=== PATIENT | female | born 1960 | race Caucasian/White ===

== ENCOUNTER 2024-06-06 15:31 | Emergency (ER) | payer OTHER, SELFPAY ==
[2024-06-06 15:36] VITALS: BP 126/66; PULSE 88; RESP 24; TEMP 36.7; O2SAT 95; BMI 35.2
--- NOTE | 2024-06-06 15:37 | ED_ITS ---
HPI - Dizziness General Chief Complaint: Dizziness Stated Complaint: ?Heat stroke Time Seen by Provider: 06/06/24 18:58 Source: patient Mode of arrival: ambulatory Limitations: no limitations History of Present Illness HPI Narrative: This is a 64-year-old woman with a reported past medical history of anxiety/depression, GERD, status post thyroidectomy on levothyroxine who presents for evaluation. 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 She states feeling lightheaded, nauseated with emesis, sweaty. She reports associated shoulder and leg cramps. She states no chest pain or dyspnea. She states she did not eat or drink anything and reports that she ?overdid it?. She reports feeling well at this time and states that her symptoms have completely resolved. She states no associated episode of syncope. She reports having gradual onset headache throughout the day. She states no vision changes. She states no neck pain. She states no hearing changes or speech changes. She states no difficulty swallowing. She states no extremity weakness or paresthesias. She states no recent febrile illness. She states no changes in bowel habits or any urinary symptoms. Related Data Allergies Allergy/AdvReac Type Severity Reaction Status Date / Time azithromycin [Azithromycin] Allergy Mild RASH Verified 06/06/24 15:39 [facility] Social History Social History Smoked in Last 30 Days: No Use of substances other than those prescribed or required for medical reasons: No Advance Directives: No Advance Directives Information Provided: Yes Physical Exam 2 Vital Signs: Vital Signs: Last Vital Signs Temp 97.9 F 06/06/24 17:02 Pulse 71 06/06/24 17:02 Resp 20 06/06/24 17:02 BP 133/71 06/06/24 17:02 Pulse Ox 93 06/06/24 17:02 O2 Del Method Room Air 06/06/24 17:02 BMI result Body Mass Index 35.2 Gen: NAD, AOx3 HEENT: NCAT, EOMI, normal conjunctiva CV: RRR Pulm: CTAB, no increased work of breathing GI: Soft, NTND, no rebound, guarding or rigidity Neuro: Cranial nerves 2-12 are intact, sensation intact to light touch in bilateral upper and lower extremity dermatomes, 5/5 bilateral upper and lower extremity strength, no dysmetria, no dysdiadochokinesia, Romberg negative, no nystagmus Course Course Course Narrative: This is a Rapid Medical Examination (RME) performed by Carly Ferguson PA-C in triage. Full HPI, ROS, assessment and treatment plan per primary provider in the Main ED. 64 year old female presents with concerns for heat stroke following setting up signs outside in the heat. Reports dizziness, has mild chest pain on inspiration, Drank water and immediately vomited, states that being in air conditioning helped a lot, however still experiencing symptoms. Top of shoulder hurts, hurts more with deep breaths. VSS in triage. She appears uncomfortable, hunched over holding her head. Plan: EKG, labs Medical Decision Making Medical Decision Making [facility] Narrative: Differential diagnosis includes, but is not limited to dehydration, acute kidney injury, electrolyte abnormality, presyncope, heat exhaustion. This is not heat stroke. Patient is afebrile and hemodynamically stable on room air. Exam is benign and reassuring. NIHSS 0. I reviewed and interpreted labs, which are noncontributory, including high sensitivity troponin effectively ruling out ACS. I reviewed and interpreted EKG, which is unremarkable for any acute findings. On re-examination, patient is well-appearing and in no acute distress. ?Patient states symptoms have resolved. ?She is independently ambulatory. I suspect symptoms are most likely attributed to heat exhaustion and/or component of presyncope and there is no indication for further emergent evaluation in this otherwise well-appearing patient as above. ?Patient is provided written and verbal instructions, educational materials, recommendations for outpatient follow-up, strict return precautions and teach back is performed. ?Patient states understanding and agreement with plan of care. ?Patient is discharged home in stable and improved condition. Admission/Observation Consideration of admission/observation: Escalation of care including admission/observation considered Lab Data [facility] Lab Attestation statement: I reviewed the patient's lab results. 06/06/24 16:20 06/06/24 16:20 Labs: Lab Results 06/06/24 06/06/24 Range/Units 16:20 17:43 WBC 12.1 H (4.8-10.8) X10*3/uL RBC 4.44 (4.20-5.50) X10*6/uL Hgb 13.1 (12.0-16.0) g/dl Hct 39.3 (37.0-47.0) % MCV 88.5 (80.0-98.0) fL MCH 29.5 (27.0-33.0) pg MCHC 33.3 (31.0-35.0) g/dl RDW 13.8 (11.0-16.0) % Plt Count 268 (160-400) X10*3/uL MPV 9.1 L (9.4-12.3) fL Immature Gran % (Auto) 0.3 (0.0-0.4) % Neut % (Auto) 78.9 H (45-73) % Lymph % (Auto) 12.3 L (20-40) % [place] % (Auto) 6.3 (2-11) % Eos % (Auto) 2.0 (0-4) % Baso % (Auto) 0.2 (0-2) % Lymph # (Auto) 1.5 (1.2-4.9) X10*3/uL [place] # (Auto) 0.8 (0.1-1.2) X10*3/uL Eos # (Auto) 0.2 (0.0-0.4) X10*3/uL Baso # (Auto) 0.0 (0.0-0.2) X10*3/uL Abs Immat Gran (auto) 0.04 H (0.00-0.03) X10*3/uL Absolute Neuts (auto) 9.6 H (2.0-8.3) x10*3/uL Absolute Nucleated RBC 0.000 (0.0-0.012) X10*3/uL Nucleated RBC % (auto) 0.0 (0.0-0.2) /100WBC Sodium 140 (135-145) mmol/L Potassium 3.8 (3.3-5.1) mmol/L Chloride 109 H (96-108) mmol/L Carbon Dioxide 22 (22-29) mmol/L Anion Gap 13 (12-20) BUN 13 (9-16) mg/dL Creatinine 0.85 (0.5-1.4) mg/dL Estim Creat Clear Calc 84.2 Estimated GFR > 60 Random Glucose 114 (60-115) mg/dL Calcium 9.6 (8.4-10.2) mg/dL Magnesium 2.1 (1.6-2.6) mg/dL Total Bilirubin 0.3 (0.0-1.0) mg/dL Direct Bilirubin 0.1 (0.0-0.5) mg/dL AST 19 (5-31) U/L ALT 21 (0-31) U/L Alkaline Phosphatase 73 (39-117) U/L Troponin I High Sens < 2.7 (<3.5-17.0) ng/L Total Protein 7.2 (6.5-8.0) g/dL Albumin 4.2 (3.5-5.0) g/dL Urine Color Yellow Urine Appearance Clear Urine pH 5.5 (5.0-9.0) Ur Specific [place] 1.020 (1.005-1.025) Urine Protein Negative (Neg-Trace) mg/dL Urine Glucose (UA) Negative (Negative) mg/dL Urine Ketones Negative (Negative) mg/dL Urine Blood Negative (Negative) Urine Nitrite Negative (Negative) Ur Leukocyte Esterase Negative (Negative) Independent Interpretation I performed an independent interpretation of an: EKG Interpretation: I independently reviewed and interpreted patient's EKG was demonstrates sinus rhythm at 87 beats per minute, LA 146, QRS 78, QTC 474, no ST/T-wave changes, no STEMI Discharge Plan Discharge Clinical Impression: Heat exhaustion Patient Disposition: Home, Self-Care Instructions: Heat Exhaustion (ED) Additional Instructions: You were seen and evaluated in the emergency room. Your vital signs were normal and he did not have fever. ? Your blood work was normal . Your chest x-ray was normal. Please follow-up with your primary care doctor in the next 5-7 days. ? Please return to the emergency room if you develop any worsening symptoms including, but not limited to chest pain or difficulty breathing. ? Print Language: Turkish
--- NOTE | 2024-06-06 15:37 | ECG_ITS ---
Test Reason : CP/DIZZY Blood Pressure : / mmHG Vent. Rate : 087 BPM Atrial Rate : 087 BPM P-R Int : 146 ms QRS Dur : 078 ms QT Int : 394 ms P-R-T Axes : 017 -49 026 degrees QTc Int : 474 ms Normal sinus rhythm Left axis deviation Anterolateral infarct , age undetermined Abnormal ECG When compared with ECG of 02-NOV-2015 17:30, Anterolateral infarct is now Present Nonspecific T wave abnormality has replaced inverted T waves in Anterior leads Referred By: Stephani Ferguson Electronically Signed By:Raul Colby
[2024-06-06 16:27] LABS: MANUAL DIFF FLAG NO
[2024-06-06 16:28] LABS: Basophils Percent Auto 0.2 % (0-2); Eosinophils Absolute Auto 0.2 X10*3/uL (0.0-0.4); Hematocrit 39.3 % (37.0-47.0); Hemoglobin 13.1 g/dl (12.0-16.0); Imm Gran Abs Auto 0.04 X10*3/uL (0.00-0.03); Imm Gran Pct Auto 0.3 % (0.0-0.4); Lymphocytes Absolute Auto 1.5 X10*3/uL (1.2-4.9); Lymphocytes Percent Auto 12.3 % (20-40); Mean Corpuscular HGB Conc 33.3 g/dl (31.0-35.0); Mean Corpuscular Hemoglobin 29.5 pg (27.0-33.0); Mean Corpuscular Volume 88.5 fL (80.0-98.0); Mean Platelet Volume 9.1 fL (9.4-12.3); Monocytes Absolute Auto 0.8 X10*3/uL (0.1-1.2); Monocytes Percent Auto 6.3 % (2-11); Neutrophils Absolute Auto 9.6 x10*3/uL (2.0-8.3); Neutrophils Percent Auto 78.9 % (45-73); Platelet Count 268 X10*3/uL (160-400); Red Blood Count 4.44 X10*6/uL (4.20-5.50); Red Cell Distribution Width 13.8 % (11.0-16.0); White Blood Count 12.1 X10*3/uL (4.8-10.8)
[2024-06-06 16:42] LABS: Alanine Aminotransferase 21 U/L (0-31); Albumin Level 4.2 g/dL (3.5-5.0); Alkaline Phosphatase 73 U/L (39-117); Anion Gap 13 (12-20); Aspartate Amino Transferase 19 U/L (5-31); Bilirubin Direct 0.1 mg/dL (0.0-0.5); Bilirubin Total 0.3 mg/dL (0.0-1.0); Blood Urea Nitrogen 13 mg/dL (9-16); Calcium 9.6 mg/dL (8.4-10.2); Carbon Dioxide 22 mmol/L (22-29); Chloride 109 mmol/L (96-108); Creatinine Clr Calc Pharmacy 84.2; Estimated Glomerular Filt Rate > 60; Glucose Random 114 mg/dL (60-115); Magnesium 2.1 mg/dL (1.6-2.6); Potassium 3.8 mmol/L (3.3-5.1); Sodium 140 mmol/L (135-145); Total Protein 7.2 g/dL (6.5-8.0)
[2024-06-06 16:51] LABS: Troponin-I High Sensitivity < 2.7 ng/L (<3.5-17.0)
--- NOTE | 2024-06-06 17:01 | PC.NURSE ---
Pt. is in ED bed 19.
--- NOTE | 2024-06-06 17:01 | PC.NURSE ---
tunnel elastic operator zigzag applied at this time.
[2024-06-06 17:02] VITALS: BP 133/71; PULSE 71; RESP 20; TEMP 36.6; O2SAT 93
--- NOTE | 2024-06-06 17:09 | PC.NURSE ---
Pt.'s swallow screen completed and passed.
--- OUTSIDE RECORDS SUMMARY | 2024-06-06 17:29 | XMS_ITS | Continuity of Care Document ---
Author Organization [facility] Address [address] [place] [address] [address] [place] [address]- Care Team Providers Care Railway Track Plant Operator Name Role Phone Joe KAUFMAN, Nadira M Primary Care Physician Encounter [facility] [place] Date(s): 09/29/23 - 10/06/[address] [place], [place] [address] Attending Physician: Sonny Castelan MD Referring Physician: Chasidy Soto MD Allergies, Adverse Reactions, Alerts Substance Reaction Severity Status azithromycin Itching Urticaria Active Medications Albuterol 0 Refills, Maintenance Start Date: 04/13/11 Status: Ordered B-12 0 Refills, Maintenance, 07/02/23 8:46:00 EDT, Partial fill upon patient request if the prescriptionis for a schedule II opioid drug. Start Date: 07/02/23 Status: Ordered duloxetine 30 mg oral enteric coated capsule 1 capsule = 30 mg, By Mouth, Daily, # 30 capsule, 0 Refills, Maintenance, 07/02/23 8:48:00 EDT, Partial fill upon patient request if the prescription is for a schedule II opioid drug. Start Date: 07/02/23 Status: Ordered Folic Acid Daily, 0 Refills, Maintenance, 07/02/23 8:44:00 EDT, Partial fill upon patient request if the prescription is for a schedule II opioid drug. Start Date: 07/02/23 Status: Ordered iron sulfate By Mouth, 0 Refills, Maintenance, 07/02/23 8:46:00 EDT, Partial fill upon patient request if the prescription is for a schedule II opioid drug. Start Date: 07/02/23 Status: Ordered montelukast 10 mg oral tablet 10 mg, 1, tablet, By Mouth, Daily, Refills 0, Maintenance, 07/02/23 8:47:00 EDT, Partial fill upon patient request if the prescription is for a schedule II opioid drug. Start Date: 07/02/23 Status: Ordered pravastatin 20 mg oral tablet 20 mg, 1, tablet, By Mouth, Daily, # 30 tablet, Refills 0, Maintenance, 07/02/23 8:43:00 EDT, Partial fill upon patient request if the prescription is for a schedule II opioid drug. Start Date: 07/02/23 Status: Ordered Protonix 40 mg oral enteric coated tablet 1 tablet = 40 mg, By Mouth, Daily, 0 Refills, Maintenance Start Date: 04/13/11 Status: Ordered Prozac 20 mg oral capsule 1 capsule = 20 mg, By Mouth, Daily, 0 Refills, Maintenance Start Date: 04/13/11 Status: Ordered QUEtiapine 50 mg oral tablet 1 tablet = 50 mg, By Mouth, Daily, # 30 tablet, 0 Refills, Maintenance, 07/02/23 8:43:00 EDT, Tablet, Partial fill upon patient request if the prescription is for a schedule II opioid drug. Start Date: 07/02/23 Status: Ordered tolterodine 4 mg oral capsule, extended release 1 capsule = 4 mg, By Mouth, Daily, # 30 capsule, 0 Refills, Maintenance, 07/02/23 8:47:00 EDT, CR Capsule, Partial fill upon patient request if the prescription is for a schedule II opioid drug. Start Date: 07/02/23 Status: Ordered Vitamin C By Mouth, Daily, 0 Refills, Maintenance, 07/02/23 8:46:00 EDT, Partial fill upon patient request ifthe prescription is for a schedule II opioid drug. 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 Confirmed Active GERD Confirmed Active History of postoperative nausea and vomiting Confirmed Active Hyperlipidemia Confirmed Active Hyperlipidemia 3 Confirmed 07/03/22 Active Impaired fasting glucose Confirmed Active Impaired fasting glycemia 4 Confirmed 07/03/22 Active Mild intermittent asthma 5 Confirmed 03/26/22 Active Morbid obesity Confirmed 01/25/23 Active Cervical pain (neck) - hx ACDF Confirmed Active Obstructive sleep apnea syndrome 6 Confirmed 03/26/22 Active Osteoarthritis of right knee Confirmed Active Severe obesity (BMI 35.0-39.9) with comorbidity Confirmed Active Thyroid nodule 7 Confirmed 03/26/22 Active 1Outside Source Comment: Last Assessment & Plan: Her last PCP did recommend half-way follow up through a therapist and prescriberand I think this is appropriate. Given a list of local providers. She has adequate refills available at this time. 2Outside Source Comment: Last Assessment & Plan: Currently resolved 3Outside Source Comment: Last Assessment & Plan: She tolerates statin well. Update fasting labs in the fall. 4Outside Source Comment: Last Assessment & Plan: Last fasting glucose 100. Check A1c with next labs. 5Outside Source Comment: Last Assessment & Plan: stable 6Outside Source Comment: Last Assessment & Plan: We'll refer you to Dr. Hsu for further eval and treatment of this 7Outside Source Comment: Last Assessment & Plan: Referral sent to Dr. Canseco to be back dated to recent visit in June. She will proceed to left thyroid lobectomy and follow up with Dr. Mondragon afterwards for monitoring TSH. Vital Signs Most recent to oldest [Reference Range]: 1 Height 167.64 cm (09/29/23 11:05 AM) Weight 102.7 kg (09/29/23 11:05 AM) Pulse Rate [55-90 bpm] 72 bpm (09/29/23 11:05 AM) Body Mass Index [18.5-24.99 kg/m2] 36.54 kg/m2 *>HHI* (09/29/23 11:05 AM) Blood Pressure [90-138/55-84 mm Hg] 128/ 85mm Hg (09/29/23 11:05 AM) Temperature [96.8-100.4 DegF] 96.5 DegF *L* (09/29/23 11:05 AM) Blood pressure sites Arm, left (09/29/23 11:05 AM) Temperature Route Temporal (09/29/23 11:05 AM) Social History Social History Type Response Smoking Status Never (less than 100 in lifetime) entered on: 08/18/23 Sex Patient Care team information Care Team Personnel Name: Joe KAUFMAN , Nadira Lira Position: S Outreach Member Role: PCP Address: Address: [address] [place] [address]- Care Team Related Persons Name: SONNY MOLINA Address: home [address] [place] [id number]
--- OUTSIDE RECORDS SUMMARY | 2024-06-06 17:29 | XMS_ITS | Continuity of Care Document ---
Author Organization [facility] Address [address] [place] [id number]- Care Team Providers Care Wireless Technician Name Role Phone Joe KAUFMAN, Nadira M Primary Care Physician Encounter [facility] [place] Date(s): 08/18/23 - 09/17/23 [facility] [address] [place], [place] [address] Attending Physician: Shay Perkins Admitting Physician: AdmtrShay Referring Physician: AdmtrShay Allergies, Adverse Reactions, Alerts Substance Reaction Severity Status azithromycin Itching Urticaria Active Medications acetaminophen 325 mg oral tablet 650 mg, 2, tablet, By Mouth, Every 4 hours, PRN, for 5 days, # 60 tablet, Refills 0, Tot. Refills 0, Acute 09/19/23 10:58:00 EST, as needed for pain, 09/14/23 10:58:00 EST, Route to Pharmacy Electronically, [facility], Partial fill upon p... Start Date: 09/14/23 Stop Date: 09/19/23 Status: Ordered Albuterol 0 Refills, Maintenance Start Date: 04/13/11 [...] & Plan: Her last PCP did recommend senior living follow up through a therapist and prescriberand [...] with Dr. Mondragon afterwards for monitoring TSH. Social History Social History Type Response Smoking Status Never (less than 100 in lifetime) entered on: 08/18/23 Sex Patient Care team information Care Team Personnel Name: Joe KAUFMAN , Nadira Lira Position: S Outreach Member Role: PCP Address: Address: [address] [place] [id number]- Care Team Related Persons Name: SONNY MOLINA Address: home [address] [place] [address]
--- OUTSIDE RECORDS SUMMARY | 2024-06-06 17:29 | XMS_ITS | Continuity of Care Document ---
Author Organization [facility] Address [address] [place] [address] [address] [place] [address]- Care Team Providers Care Advertising Sales Consultant Name Role Phone Chasidy Soto MD Primary Care Physician [phone] Encounter [facility] [place] Date(s): 07/02/23 - 08/01/[address] [place], [place] [address] Attending Physician: Shay Prekins Admitting Physician: AdmtrShay Referring Physician: Admtr, Ar8 Allergies, Adverse Reactions, Alerts No Known Allergies Medications Albuterol 0 Refills, Maintenance Start Date: 04/13/11 Status: Ordered B-12 0 Refills, Maintenance, 07/02/23 8:46:00 EDT, Partial fill upon patient request if the prescriptionis for a schedule II opioid drug. Start Date: 07/02/23 Status: Ordered Benadryl 25 mg oral tablet 25 mg, 1, tablet, By Mouth, 2 times a day, PRN as needed for itching, # 30 tablet, 0 Refills, Maintenance Start Date: 07/02/23 Status: Ordered duloxetine 30 mg oral enteric coated capsule 1 capsule = 30 mg, By Mouth, Daily, # 30 capsule, 0 Refills, Maintenance, 07/02/23 8:48:00 EDT, Partial fill upon patient request if the prescription is for a schedule II opioid drug. Start Date: 07/02/23 Status: Ordered Effexor 100 mg oral tablet 1 tablet = 100 mg, By Mouth, 2 times a day, 0 Refills, Maintenance Start Date: 04/13/11 Status: Ordered Folic Acid Daily, 0 Refills, [...] opioid drug. 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
--- OUTSIDE RECORDS SUMMARY | 2024-06-06 17:29 | XMS_ITS | Continuity of Care Document ---
Author Organization [facility] Address [address] [place] [address] [address] [place] [address]- Care Team Providers Care Bonding Machine Tender Name Role Phone Joe KAUFMAN, Nadira Lira Primary Care Physician Encounter [facility] R [id number] Date(s): 09/29/23 - 10/29/[address] [place] [address]- Attending Physician: Shay Perkins Admitting Physician: AdmtrShay Referring Physician: Admtr ArDionicio Allergies, Adverse Reactions, Alerts Substance Reaction Severity [...] & Plan: Her last PCP did recommend long term care administrator follow up through a therapist and prescriberand [...] Care team information Care Team Personnel Name: Nadira Diaz NP Position: S Outreach Member Role: PCP Address: Address: [address] [place] [address]- Care Team Related Persons Name: SONNY MOLINA Address: home [address] [place] [address]
--- OUTSIDE RECORDS SUMMARY | 2024-06-06 17:30 | XMS_ITS | Continuity of Care Document ---
Author Organization [facility] Address [address] [place] [address] [address] [place] [address]- Care Team Providers Care Order To Delivery Supervisor Name Role Phone Chasidy Soto MD Primary Care Physician Encounter [facility] [place] Date(s): 07/02/23 - 07/09/[address] [place] [address]- Attending Physician: Devaughn Canseco MD Referring Physician: Chasidy Soto MD Allergies, Adverse Reactions, Alerts No Known Allergies [...] Confirmed Active Obese class II Confirmed Active Vital Signs Most recent to oldest [Reference Range]: 1 Height 169 cm (07/02/23 8:28 AM) Weight 102.7 kg (07/02/23 8:28 AM) Pulse Rate [55-90 bpm] 76 bpm (07/02/23 8:28 AM) Body Mass Index [18.5-24.99 kg/m2] 35.96 kg/m2 *>HHI* (07/02/23 8:28 AM) Blood Pressure [90-138/55-84 mm Hg] 124/ 82mm Hg (07/02/23 8:28 AM) Respiratory Rate [16-30 br/min] 20 br/mi n (07/02/23 8:28 AM) Temperature [96.8-100.4 DegF] 97.1 DegF (07/02/23 8:28 AM) Blood pressure sites Arm, left (07/02/23 8:28 AM) Temperature Route Femoral (07/02/23 8:28 AM) Weight Obtained Via Standing scale (07/02/23 8:28 AM) Patient Care team information Care Team Personnel Name: Chasidy Soto MD Position: [facility] Physician (General Medicine) Member Role: PCP Address: Address: [address] [place] [address]- Care Team Related Persons Name: SONNY MOLINA Address: home [address] [place] [address]
--- OUTSIDE RECORDS SUMMARY | 2024-06-06 17:30 | XMS_ITS | Continuity of Care Document ---
Author Organization [facility] Address [address] [place] [address]- Care Team Providers Care Customer Experience Intern Name Role Phone Charles HURT, Chasidy Aggarwal Primary Care Physician Encounter [facility] [place] ACCT R [id number] Date(s): 08/18/23 - 08/25/23 [facility] [address] [place] 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 Mondragon afterwards for monitoring TSH. Procedures Procedure Date Related Diagnosis Body Site Status Appendectomy Completed Bilateral tubal ligation Completed Biopsy of thyroid Complet ed Cholecystectomy Completed Colonoscopy Completed Endoscopy Completed Hernia Repair 03/2023 Comp leted Hysterectomy Completed Right knee ACL Completed Surgical procedure on cervic al spine with hardware Completed Tonsillectomy Completed Vital Signs Most recent to oldest [Reference Range]: 1 Height 168 cm (08/18/23 1:36 PM) Weight 102.7 kg (08/18/23 1:36 PM) Oxygen Saturation [94-100 %] 98 % (08/18/23 1:36 PM) Pulse Rate [55-90 bpm] 75 bpm (08/18/23 1:36 PM) Body Mass Index [18.5-24.99 kg/m2] 36.39 kg/m2 *>HHI* (08/18/23 1:36 PM) Blood Pressure [90-138/55-84 mm Hg] 115/ 72mm Hg (08/18/23 1:36 PM) Respiratory Rate [16-30 br/min] 18 br/mi n (08/18/23 1:36 PM) Mode of Delivery (Oxygen) Room air (08/18/23 1:36 PM) Blood pressure sites Arm, right (08/18/23 1:36 PM) Weight Obtained Via Standing scale (08/18/23 1:36 PM) Social History Social History Type Response Smoking Status Never (less than 100 in lifetime) entered on: 08/18/23 Sex Patient Care team information Care Team Personnel Name: Chasidy Soto MD Position: [facility] Physician (General Medicine) Member Role: PCP Address: Address: [address] [place] [address]- Care Team Related Persons Name: SONNY MOLINA Address: home [address] [place] [address]
--- OUTSIDE RECORDS SUMMARY | 2024-06-06 17:30 | XMS_ITS | Continuity of Care Document ---
Author Organization [facility] Address [address] [place] [id number]- Care Team Providers [employer] Name Role Phone Joe KAUFMAN, Nadira M Primary Care Physician Encounter [facility] [place] Date(s): 09/14/23 - 09/14/[address] [address] Discharge Disposition: A-D/C Home Attending Physician: Devaughn Canseco MD Admitting Physician: Devaughn Canseco MD Referring Physician: Devaughn Canseco MD Allergies, [...] opioid drug. Start Date: 07/02/23 Status: Ordered oxyCODONE 5 mg oral tablet 5 mg, 1, tablet, By Mouth, Every 4 hours, PRN, for 2 days, # 8 tablet, Refills 0, Tot. Refills 0, Acute 09/16/23 10:58:00 EST, for pain, 09/14/23 10:58:00 EST, Route to Pharmacy Electronically, [facility], Partial fill upon patient reques... Start Date: 09/14/23 Stop Date: 09/16/23 Status: Ordered Oxycodone 5mg Oral Tablet (PACU ONLY) 5 mg, Tablet, By Mouth, Once, in PACU ONLY, PRN for Pain , Moderate, Routine, 09/14/23 11:08:00 EST Start Date: 09/14/23 Stop Date: 09/14/23 Status: Completed pravastatin 20 mg oral tablet 20 mg, [...] & Plan: Her last PCP did recommend plate mill mill hand follow up through a therapist and prescriberand [...] Procedure Date Related Diagnosis Body Site Status Total thyroid lobectomy, uni lateral; with or without isthmusectomy 09/14/23 Co mpleted Vital Signs Most recent to oldest [Reference Range]: 1 2 3 Height 167.64 cm (09/14/23 9:28 AM) 167.64 cm (09/13/23 9:02 AM) Weight 101.0 kg (09/14/23 9:28 AM) 102.27 kg (09/13/23 9:02 AM) Oxygen Saturation [94-100 %] 92 % *L* (09/14/23 1:30 PM) 92 % *L* (09/14/23 1:15 PM) 92 % *L* (09/14/23 1:00 PM) Pulse Rate [55-90 bpm] 67 bpm (09/14/23 9:28 AM) Body Mass Index [18.5-24.99 kg/m2] 35.94 kg/m2 *>HHI* (09/14/23 9:28 AM) 36.39 kg/m2 *>HHI* (09/13/23 9:02 AM) Blood Pressure [90-138/55-84 mm Hg] 128/76mm Hg (09/14/23 1:00 PM) 131/77mm Hg (09/14/23 12:45 PM) 119/73mm Hg (09/14/23 12:30 PM) Respiratory Rate [16-30 br/min] 23 br/min (09/14/23 1:30 PM) 18 br/min (09/14/23 1:29 PM) 19 br/min (09/14/23 1:00 PM) Temperature [96.8-100.4 DegF] 97.2 DegF (09/14/23 12:15 PM) 97.7 DegF (09/14/23 11:15 AM) 97.8 DegF (09/14/23 9:28 AM) Liters per Minute 2 L/min (09/14/23 1:00 PM) 2 L/min (09/14/23 12:45 PM) 5 L/min (09/14/23 12:30 PM) Mode of Delivery (Oxygen) Room air (09/14/23 1:30 PM) Room air (09/14/23 1:15 PM) Nasal cannula (09/14/23 1:00 PM) Blood pressure sites Arm, right (09/14/23 12:15 PM) Arm, right (09/14/23 12:00 PM) Arm, right (09/14/23 11:45 AM) Temperature Route Temporal (09/14/23 12:15 PM) Temporal (09/14/23 11:15 AM) Temporal (09/14/23 9:28 AM) Dry Weight 101.0 kg (09/14/23 9:28 AM) 102.27 kg (09/13/23 9:02 AM) Weight Obtained Via Standing scale (09/14/23 9:28 AM) Patient/family stated (09/13/23 9:02 AM) Dry Weight Obtained Via Standing scale (09/14/23 9:28 AM) Patient/family stated (09/13/23 9:02 AM) Social History Social History Type Response Smoking Status Never (less than 100 in lifetime) entered on: 08/18/23 Sex Note * Joy Rivera RN: PERFORM Event Display: Discharge/Transfer Note Hospital Authored Date: [id number] Nursing Discharge Note Entered On: 09/14/2023 14:10 EST Performed On: 09/14/2023 14:09 EST by Joy Rivera RN Nursing Discharge Note 2 Discharge Time : 09/14/2023 14:09 EST Discharge Level of Care at Discharge : Home/Jail/Foster Care Patient Left Unit Via : Wheelchair Patient Accompanied Off Unit with : Responsible adult DC Instructions Provided & Signed by Pt : Yes Patient Understands D/C Instructions : Yes Verbalized Understanding of D/C Plan By : Family, Patient Patient Instructions Discharge Signed : Yes Did Pt have Specialty Bed or Wound Vac : No Joy Rivera RN - 09/14/2023 14:09 EST * Tabby Schroeder RN: PERFORM Event Display: Patient Education/Instruction Authored Date: [id number] Inpatient Adult Discharge Instructions [address] [address] Name: BERTHA OSORIO : 1960 Visit: 09/14/2023 08:19:00 Current Date: 09/14/2023 12:36 Account: [id number] Inpatient Adult Discharge Instructions We would like to thank you for allowing us to assist you with your healthcare needs. The following includes patient education materials and information regarding your injury/illness. Our entire staffstrives to provide an excellent experience for our patients and their families. PLEASE ENSURE YOU FOLLOW-UP PER THE INSTRUCTIONS BELOW! ?? YOUR OPINION IS IMPORTANT TO US! Please complete the survey you may receive by mail or email. Your feedback will be used to make improvements to the healthcare experiences of our patients and their families. Surveys are administered by [employer] ?? If further treatment with your primary care physician or another doctor is recommended, it is important for you to keep the appointment. Call your primary care physician or return to the Emergency Department immediately if your condition worsens, fails to improve, or new symptoms develop. If you need to find a doctor, you can call [facility] Link for a referral at [phone] or toll free at [phone]) or log in to [email or web address].. ?? [facility], in keeping with [facility] guidance, no longer requires face masks for staff, patientsor visitors in most situations. Similiar to time spent indoors at other locations, there is the chance that you were exposed to repiratory viruses during your time with us (such as flu or COVID-19). If you develop symptoms concerning for a viral respiratory infection, please seek testing (and treatment if indicated) from your medical provider or home test kit. ?? You can view and manage your care through the patient portal or by using a health care gayathri of your choosing. [employer] is a website that allows you to securely view your medical information including your hospital discharge summary, office visit summaries, medications and follow-up visits. You can also request appointments, renew medications, and request access to your medical information using a health care gayathri of your choosing, or just ask a question. You can enroll at [email or web address] or register during your next office visit. You have been discharged from [facility], Patient Care Unit: [facility]. If you have any questions regarding these instructions after you leave, please call us and we will be happy to assist you. [facility] Your Care Team Attending Physician Devaughn Canseco MD Discharging Providers Yonny Gan DO Reason for Admission LEFT THYROID NODULEDS CS Tests Performed Below is a partial list of the tests performed during your hospitalization. You may have had other tests and procedures not included in this list. Please discuss all test results with your provider. Primary Care Provider Nadira Diaz NP Advance Directive Health Care Proxy on File No Discharge Vitals Temperature: 97.2 DegF Height: 167.64 cm Pulse Rate: 67 bpm Weight: 101 kg Respiratory Rate: 20 br/min Body Mass Index:??35.94 kg/m2??Critical Systolic Blood Pressure: 126 mm Hg Body surface area: 2.17 Diastolic Blood Pressure: 74 mm Hg ?? Oxygen Saturation:??92 %??Low ?? Studies Pending All tests and labs ordered during this hospital stay have been completed unless listed below. Please discuss all pending results with your provider listed above in these instructions. ?? No incomplete studies found What to do next Instructions From Your Doctor Discharge Orders Instructions from your Care Team Please see attached MD discharge instructions. Call to make a follow up in 2-[address] weeks[address] while taking pain meds. Can shower in 24hrs. Leave steri-strips in place. Scheduled Follow-Up Appointments Wednesday 11:20 AM EST ?? With: Cordell Zamora Where: [facility] General Surgery [address] [place] [address]- Status: Pending You Need to Schedule the Following Appointments Follow Up with??Devaughn Canseco Where: [address], [address] [place] [address]- Business (1) Follow Up with??Nadira Diaz NP When:??In 0 days Discharge Medications BERTHA OSORIO :1960 Visit Date:09/14/2023 Medications: Please continue your medications until treatment is completed or stopped by your provider. Medications not listed below should be discontinued. Discuss any questions related to medications with your provider. What How Much When Instructions Next Dose New Acetaminophen (acetaminophen 325 mg oral tablet) 2 tab(s) Oral Every 4 hours as needed for as needed for pain Duration: 5 Days Pickup at [facility] New Oxycodone (oxyCODONE 5 mg oral tablet) 1 tab(s) Oral Every 4 hours as needed for for pain Duration: 2 Days Pickup at [facility] Unchanged Albuterol Unchanged Ascorbic Acid (Vitamin C) Oral Daily Unchanged Cyanocobalamin (B-12) Unchanged Duloxetine (duloxetine 30 mg oral enteric coated capsule) 1 capsule Oral Daily Unchanged Ferrous Sulfate (iron sulfate) Oral Unchanged Fluoxetine (Prozac 20 mg oral capsule) 1 capsule Oral Daily Unchanged Folic Acid Daily Unchanged Montelukast (montelukast 10 mg oral tablet) 1 tab(s) Oral Daily Unchanged Pantoprazole (Protonix 40 mg oral enteric coated tablet) 1 tab(s) Oral Daily Unchanged Pravastatin (pravastatin 20 mg oral tablet) 1 tab(s) Oral Daily Unchanged Quetiapine (QUEtiapine 50 mg oral tablet) 1 tab(s) Oral Daily Unchanged Tolterodine (tolterodine 4 mg oral capsule, extended release) 1 capsule Oral Daily Pharmacy Information [facility]: [address], [place] [id number] [phone] Test Results Below is a partial list of the most recent Laboratory test results done prior to this discharge. You may have had other tests and procedures not included in this list. Please discuss all test resultswith your provider. Allergies (NKA means No Known Allergies) azithromycin??(Itching, Urticaria) Problems Active Problems??(18) Adjustment disorder with mixed anxiety and depressed mood?? Anemia?? Anemia?? Asthma, (rare use of inhaler)?? Cervical pain (neck) - hx ACDF?? 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 GERD?? History of postoperative nausea and vomiting?? Hyperlipidemia?? Hyperlipidemia?? Impaired fasting glucose?? Impaired fasting glycemia?? Mild intermittent asthma?? Morbid obesity?? Obstructive sleep apnea syndrome?? Osteoarthritis of right knee?? Severe obesity (BMI 35.0-39.9) with comorbidity?? Thyroid nodule?? Education Materials Below is the list of Educational Leaflet Providered with your Discharge Instructions. Valuables and Belongings I fully understand and agree that [facility] accepts no responsibility for all my personal property including clothing, toilet articles, radios, jewelry, dentures, hearing aids, rings, money, or any other property that is in my possession or is brought to me after admission. I understand certain valuables may be placed in a hospital safe for a short period of time. I understand that the hospital is not liable for loss or damage due to accident, fire, or other natural occurrence while said property is in the safe. I accept full responsibility for any personal property that I keep with me, and will not hold the hospital responsible in case of loss or disappearance. I acknowledge that i have been encouraged to send valuables and belongings home. ?? Review of Valuable and Belonging List: With patient Date for Pt to Sign Valuables/Belongings: 09/14/23 09:28:00 ?? Valuables & Belongings ?? Clothes Electronic devices Jewelry Monetary Items Personal devices Miscellaneous Medications (Valuables) Valuables at Bedside Pants, Shirt, Shoes, Undergarments Cell phone ? Glasses ? Valuables Sent Home ? Valuables Sent to Security ? Other Discharge Information ? Pulmonary Rehab Status?? Pulmonary Rehab Discharge Status?? Respiratory Rate: 20 br/min ? Common Emergency Awareness Tips IS IT A STROKE? Act FAST and Check for these signs: FACE Does the face look uneven? ARM Does one arm drift down? SPEECH Does their speech sound strange? TIME Call at any sign of stroke ?? Heart Attack Signs Chest discomfort: Most heart attacks involve discomfort in the center of the chest and lasts more than a few minutes, or goes away and comes back. It can feel like uncomfortable pressure, squeezing, fullness or pain. Discomfort in upper body: Symptoms can include pain or discomfort in one or both arms, back, neck, jaw or stomach. Shortness of breath: With or without discomfort. Other signs: Breaking out in a cold sweat, nausea, or lightheaded. Remember, MINUTES DO MATTER. If you experience any of these heart attack warning signs, call to get immediate medical attention! ?? Smoking can increase your chances of developing chronic health problems and can cause harmful effects to other family members in your house. If you smoke, you are strongly encouraged to quit. Please call [facility] Link at [phone] or [phone]) or log in to [email or web address] for referrals to smoking cessation programs. ?? 758 Suicide & Crisis Lifeline is available 31/05 if you or someone you know needs to find a reason to keep living. By calling 978 you'll be connected to a skilled, trained counselor at a crisis center in your area. INPATIENT DISCHARGE INSTRUCTIONS SIGNATURE PAGE BERTHA OSORIO Location:[facility] Registration Date and Time:09/14/2023 08:19 EST Primary Care Physician: Nadira Diaz NP, Attending Physician: Ajith HURT, Devaughn, I BERTHA OSORIO, have received the above patient education materials/instructions and have verbalized understanding. If ambulance or transport services are being used I further acknowledge being given achoice of service. ?? If you need to contact me, please call me at this number: . Patient/Sewage Plant Attendant Name: Patient/Sewage Plant Attendant Signature: Relationship to Patient: Witness Name/Signature: Date: * Tabby Schroeder RN: PERFORM, SIGN, VERIFY Event Display: Patient Education Handout Authored Date: [id number] * Tabby Schroeder RN: PERFORM Event Display: Patient Education Leaflets Authored Date: [id number] Surgery Medical Daystay Surgical Overnight Discharge Instructions ?? 295 Medical Daystay/Surgical Overnight Discharge Instructions ? Since your coordination and judgment may be altered by medication and/or anesthesia, a responsible adult must drive you home from the hospital. ? If you have received medication for pain or sedation while under our care, you should not drive, operate machinery, drink alcohol, or sign any legal documents for 24 hours.?? You should have someone with you at home tonight. ? Remain at home the day of discharge.?? You may be up and about unless otherwise instructed by your physician. ? You may resume your daily prescription medication schedule.?? Any depressant medication should be avoided for 24 hours unless otherwise instructed by your surgeon or anesthesiologist. ? Call your physician for a follow-up appointment.? If you experience unusual or severe pain not relied by your pain medication, excessive bleedingor drainage, persistent nausea and vomiting, excessive swelling or redness, foul odor from incisionsite or fever over 100.6F, you need to call your physician. ? A follow-up phone call by a nurse will be made the day after your procedure.?? If you have stayed with us over night, you will not be receiving a follow-up phone call. ? Nausea and vomiting are a common side effect of prescription pain medication.?? We recommend that pills are not taken on an empty stomach.?? While taking any prescription pain medication you should not drive or drink alcohol. ? Patient Care team information Care Team Personnel Name: Nadira Diaz NP Position: S Outreach Member Role: PCP Address: Address: [address] [place] [address]- Care Team Related Persons Name: SONNY MOLINA Address: home [address] [place] [address]
[2024-06-06 17:51] LABS: Appearance Urine Clear; Color Urine Yellow; Glucose Urine UA Negative (Negative); Leukocyte Esterase Urine Negative (Negative); Nitrite Urine Negative (Negative); PH 5.5 (5.0-9.0); Urine Blood Negative (Negative); Urine Ketones Negative (Negative); Urine Protein Negative (Neg-Trace)
--- NOTE | 2024-06-06 19:38 | ED_ITS ---
HPI - General Adult General Chief complaint: Dizziness Stated complaint: ?Heat stroke Time Seen by Provider: 06/06/24 18:58 Related Data Allergies Allergy/AdvReac Type Severity Reaction Status Date / Time azithromycin [Azithromycin] Allergy Mild RASH Verified 06/06/24 15:39 [facility] Social History Social History Smoked in Last 30 Days: No Use of substances other than those prescribed or required for medical reasons: No Advance Directives: No Advance Directives Information Provided: Yes Physical Exam ED Vital Signs: Vital Signs - 24 hr 06/06/24 15:36 06/06/24 17:02 Temperature 98.0 F 97.9 F Pulse Rate 88 71 Respiratory Rate 24 H 20 Blood Pressure 126/66 133/71 Pulse Oximetry 95 93 Oxygen Delivery Method Room Air Room Air BMI result Body Mass Index 35.2 Medical Decision Making Lab Data 06/06/24 16:20 06/06/24 16:20 Labs: Lab Results 06/06/24 06/06/24 Range/Units 16:20 17:43 WBC 12.1 H (4.8-10.8) X10*3/uL RBC 4.44 (4.20-5.50) X10*6/uL Hgb 13.1 (12.0-16.0) g/dl Hct 39.3 (37.0-47.0) % MCV 88.5 (80.0-98.0) fL MCH 29.5 (27.0-33.0) pg MCHC 33.3 (31.0-35.0) g/dl RDW 13.8 (11.0-16.0) % Plt Count 268 (160-400) X10*3/uL MPV 9.1 L (9.4-12.3) fL Immature Gran % (Auto) 0.3 (0.0-0.4) % Neut % (Auto) 78.9 H (45-73) % Lymph % (Auto) 12.3 L (20-40) % Lassen % (Auto) 6.3 (2-11) % Eos % (Auto) 2.0 (0-4) % Baso % (Auto) 0.2 (0-2) % Lymph # (Auto) 1.5 (1.2-4.9) X10*3/uL Lassen # (Auto) 0.8 (0.1-1.2) X10*3/uL Eos # (Auto) 0.2 (0.0-0.4) X10*3/uL Baso # (Auto) 0.0 (0.0-0.2) X10*3/uL Abs Immat Gran (auto) 0.04 H (0.00-0.03) X10*3/uL Absolute Neuts (auto) 9.6 H (2.0-8.3) x10*3/uL Absolute Nucleated RBC 0.000 (0.0-0.012) X10*3/uL Nucleated RBC % (auto) 0.0 (0.0-0.2) /100WBC Sodium 140 (135-145) mmol/L Potassium 3.8 (3.3-5.1) mmol/L Chloride 109 H (96-108) mmol/L Carbon Dioxide 22 (22-29) mmol/L Anion Gap 13 (12-20) BUN 13 (9-16) mg/dL Creatinine 0.85 (0.5-1.4) mg/dL Estim Creat Clear Calc 84.2 Estimated GFR > 60 Random Glucose 114 (60-115) mg/dL Calcium 9.6 (8.4-10.2) mg/dL Magnesium 2.1 (1.6-2.6) mg/dL Total Bilirubin 0.3 (0.0-1.0) mg/dL Direct Bilirubin 0.1 (0.0-0.5) mg/dL AST 19 (5-31) U/L ALT 21 (0-31) U/L Alkaline Phosphatase 73 (39-117) U/L Troponin I High Sens < 2.7 (<3.5-17.0) ng/L Total Protein 7.2 (6.5-8.0) g/dL Albumin 4.2 (3.5-5.0) g/dL Urine Color Yellow Urine Appearance Clear Urine pH 5.5 (5.0-9.0) Ur Specific [place] 1.020 (1.005-1.025) Urine Protein Negative (Neg-Trace) mg/dL Urine Glucose (UA) Negative (Negative) mg/dL Urine Ketones Negative (Negative) mg/dL Urine Blood Negative (Negative) Urine Nitrite Negative (Negative) Ur Leukocyte Esterase Negative (Negative) Independent Interpretation I performed an independent interpretation of an: EKG Discharge Plan Discharge Clinical Impression: Heat exhaustion Patient Disposition: Home, Self-Care Instructions: Heat Exhaustion (ED) Additional Instructions: You were seen and evaluated in the emergency room. Your vital signs were normal and he did not have fever. ? Your blood work was normal . Your chest x-ray was normal. Please follow-up with your primary care doctor in the next 5-7 days. ? Please return to the emergency room if you develop any worsening symptoms including, but not limited to chest pain or difficulty breathing. ? Print Language: Ukrainian
--- NOTE | 2024-06-06 19:40 | ED.GENADULT ---
HPI - General Adult General Chief complaint: Dizziness Stated complaint: ?Heat stroke Time Seen by Provider: 06/06/24 18:58 Related Data Allergies Allergy/AdvReac Type Severity Reaction Status Date / Time azithromycin [Azithromycin] Allergy Mild RASH Verified 06/06/24 15:39 [facility] Social History Social History Smoked in Last 30 Days: No Use of substances other than those prescribed or required for medical reasons: No Advance Directives: No Advance Directives Information Provided: Yes Physical Exam ED Vital Signs: Vital Signs - 24 hr 06/06/24 15:36 06/06/24 17:02 Temperature 98.0 F 97.9 F Pulse Rate 88 71 Respiratory Rate 24 H 20 Blood Pressure 126/66 133/71 Pulse Oximetry 95 93 Oxygen Delivery Method Room Air Room Air BMI result Body Mass Index 35.2 Medical Decision Making Medical Decision Making [facility] Narrative: Differential diagnosis includes, but is not limited to dehydration, acute kidney injury, electrolyte abnormality, presyncope, heat exhaustion. This is not heat stroke. Patient is afebrile and hemodynamically stable on room air. Exam is benign and reassuring. NIHSS 0. I reviewed and interpreted labs, which are noncontributory, including high sensitivity troponin effectively ruling out ACS. I reviewed and interpreted EKG, which is unremarkable for any acute findings. On re-examination, patient is well-appearing and in no acute distress. ?Patient states symptoms have resolved. ?She is independently ambulatory. I suspect symptoms are most likely attributed to heat exhaustion and/or component of presyncope and there is no indication for further emergent evaluation in this otherwise well-appearing patient as above. ?Patient is provided written and verbal instructions, educational materials, recommendations for outpatient follow-up, strict return precautions and teach back is performed. ?Patient states understanding and agreement with plan of care. ?Patient is discharged home in stable and improved condition. Admission/Observation Consideration of admission/observation: Escalation of care including admission/observation considered Lab Data [facility] Lab Attestation statement: I reviewed the patient's lab results. 06/06/24 16:20 06/06/24 16:20 Labs: Lab Results 06/06/24 06/06/24 Range/Units 16:20 17:43 WBC 12.1 H (4.8-10.8) X10*3/uL RBC 4.44 (4.20-5.50) X10*6/uL Hgb 13.1 (12.0-16.0) g/dl Hct 39.3 (37.0-47.0) % MCV 88.5 (80.0-98.0) fL MCH 29.5 (27.0-33.0) pg MCHC 33.3 (31.0-35.0) g/dl RDW 13.8 (11.0-16.0) % Plt Count 268 (160-400) X10*3/uL MPV 9.1 L (9.4-12.3) fL Immature Gran % (Auto) 0.3 (0.0-0.4) % Neut % (Auto) 78.9 H (45-73) % Lymph % (Auto) 12.3 L (20-40) % [place] % (Auto) 6.3 (2-11) % Eos % (Auto) 2.0 (0-4) % Baso % (Auto) 0.2 (0-2) % Lymph # (Auto) 1.5 (1.2-4.9) X10*3/uL [place] # (Auto) 0.8 (0.1-1.2) X10*3/uL Eos # (Auto) 0.2 (0.0-0.4) X10*3/uL Baso # (Auto) 0.0 (0.0-0.2) X10*3/uL Abs Immat Gran (auto) 0.04 H (0.00-0.03) X10*3/uL Absolute Neuts (auto) 9.6 H (2.0-8.3) x10*3/uL Absolute Nucleated RBC 0.000 (0.0-0.012) X10*3/uL Nucleated RBC % (auto) 0.0 (0.0-0.2) /100WBC Sodium 140 (135-145) mmol/L Potassium 3.8 (3.3-5.1) mmol/L Chloride 109 H (96-108) mmol/L Carbon Dioxide 22 (22-29) mmol/L Anion Gap 13 (12-20) BUN 13 (9-16) mg/dL Creatinine 0.85 (0.5-1.4) mg/dL Estim Creat Clear Calc 84.2 Estimated GFR > 60 Random Glucose 114 (60-115) mg/dL Calcium 9.6 (8.4-10.2) mg/dL Magnesium 2.1 (1.6-2.6) mg/dL Total Bilirubin 0.3 (0.0-1.0) mg/dL Direct Bilirubin 0.1 (0.0-0.5) mg/dL AST 19 (5-31) U/L ALT 21 (0-31) U/L Alkaline Phosphatase 73 (39-117) U/L Troponin I High Sens < 2.7 (<3.5-17.0) ng/L Total Protein 7.2 (6.5-8.0) g/dL Albumin 4.2 (3.5-5.0) g/dL Urine Color Yellow Urine Appearance Clear Urine pH 5.5 (5.0-9.0) Ur Specific [place] 1.020 (1.005-1.025) Urine Protein Negative (Neg-Trace) mg/dL Urine Glucose (UA) Negative (Negative) mg/dL Urine Ketones Negative (Negative) mg/dL Urine Blood Negative (Negative) Urine Nitrite Negative (Negative) Ur Leukocyte Esterase Negative (Negative) Independent Interpretation I performed an independent interpretation of an: EKG Interpretation: I independently reviewed and interpreted patient's EKG was demonstrates sinus rhythm at 87 beats per minute, W[place] 146, QRS 78, QTC 474, no ST/T-wave changes, no STEMI Discharge Plan Discharge Clinical Impression: Heat exhaustion Patient Disposition: Home, Self-Care Instructions: Heat Exhaustion (ED) Additional Instructions: You were seen and evaluated in the emergency room. Your vital signs were normal and he did not have fever. ? Your blood work was normal . Your chest x-ray was normal. Please follow-up with your primary care doctor in the next 5-7 days. ? Please return to the emergency room if you develop any worsening symptoms including, but not limited to chest pain or difficulty breathing. ? Print Language: Hungarian
[2024-06-06 19:57] VITALS: BP 132/68; PULSE 62; RESP 21; TEMP 36.3; O2SAT 97
[2024-06-06 20:16] VITALS: BP 132/68; PULSE 62; RESP 21; TEMP 36.3; O2SAT 99
== END 2024-06-06 20:17 | disposition home or self-care (01) ==
PROVIDERS: Physician Assistant; Emergency Provider Emergency Medicine; PCP Nurse Practitioner Adult Health
DX: R42 Dizziness and giddiness (principal); R07.89 Other chest pain; T67.6XXA Heat fatigue, transient, initial encounter; X30.XXXA Exposure to excessive natural heat, initial encounter; Y93.9 Activity, unspecified; Y92.9 Unspecified place or not applicable; Y99.8 Other external cause status; Z79.899 Other long term (current) drug therapy
CPT/HCPCS: 36415; 80048; 80076; 81003; 83735; 84484; 85025; 93005; 99283; 99284

== ENCOUNTER → 2024-06-06 15:37 | Outpatient (BNV) | payer OTHER, SELFPAY | PROVIDERS: Emergency Provider Emergency Medicine; PCP Nurse Practitioner Adult Health; Visit Provider Internal Medicine Cardiovascular Disease | DX: R07.9 Chest pain, unspecified (principal); R42 Dizziness and giddiness; R94.31 Abnormal electrocardiogram [ECG] [EKG] | CPT/HCPCS: 93010 ==

== ENCOUNTER 2025-09-03 12:07 | Observation (INO) | payer MEDICAID, SELFPAY ==
--- NOTE | ~2025-09-03 | CT_ITS ---
EXAMINATION: CT HEAD WITHOUT CONTRAST (STROKE PROTOCOL) CLINICAL INFORMATION: Left-sided weakness. Dizziness. Concerning for stroke. COMPARISON: None available. TECHNIQUE: Contiguous axial imaging was performed from the skull base to vertex without intravenous administration of contrast. This CT examination was performed using dose optimization techniques as appropriate, variously including the following: *Automated exposure control *Adjustment of mA and/or kV according to patient size (this includes techniques or standardized protocols for targeted exams where dose is matched to indication/reason for exam; i.e. extremities or head) *Use of iterative reconstruction technique. DLP: 748 mGy-cm FINDINGS: No acute intracranial hemorrhage, mass effect, midline shift, hydrocephalus or herniation. Gamez-white matter differentiation is normal. No gross stents MCA. Posterior cranial fossa contents constrain no acute hemorrhage or mass effect. Sellar/suprasellar region demonstrated no gross masses. 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 Craniocervical junction is intact with normal position of the cerebellar tonsils. No air-fluid levels in the paranasal sinuses. Tympanic cavities and mastoid cells are aerated. CT/CT angio head neck STROKE IMPRESSION: No acute intracranial hemorrhage or acute brain abnormality by CT. EXAMINATION: CTA NECK WITH CONTRAST (STROKE) CTA BRAIN WITH CONTRAST (STROKE) CLINICAL INFORMATION: Left-sided weakness. Concerning for stroke. COMPARISON: None available. TECHNIQUE: CTA of the head and neck was performed in the axial plane from the mediastinum to the skull vertex using 70 mL Omnipaque 350 intravenous contrast. Additional reformatted multiplanar images including maximum intensity projection MIP images are generated on the CT workstation. This CT examination was performed using dose optimization techniques as appropriate, variously including the following: *Automated exposure control *Adjustment of mA and/or kV according to patient size (this includes techniques or standardized protocols for targeted exams where dose is matched to indication/reason for exam; i.e. extremities or head) *Use of iterative reconstruction technique. DLP: 674 mGy-cm FINDINGS: The degree of stenosis determined by criteria similar to NASCET. Chest CTA: No aneurysm or dissection, thoracic aorta. No focal stenosis. Neck CTA: Right CCA: Normal patency. No focal stenosis. No intimal flap. Right ICA: Normal patency. No focal stenosis. No intimal flap. Left CCA: Normal patency. No focal stenosis. No intimal flap. Left ICA: Normal patency. No focal stenosis. No intimal flap. Tortuosity. V1/V2 segments: Normal patency. No focal stenosis. No intimal flap. Right vertebral artery slightly dominant. Both arteries origin is directly from the subclavian artery. Brain CTA: Anterior cerebral circulation: ICAs: Normal patency. No focal stenosis. No abrupt cut off. No gross vascular irregularity. MCA's: Normal patency. No focal stenosis. No abrupt cut off. Bifurcation/trifurcation demonstrated no vascular abnormality. ACAs: Normal patency. No focal stenosis. No abrupt cut off. Ophthalmic arteries are patent without vascular abnormality. Posterior communicating arteries are patent without gross vascular abnormality. Anterior communicating artery is patent without gross vascular abnormality. Posterior cerebral circulation: V3/V4 segments: Normal patency. No focal stenosis. No intimal flap. Posterior inferior cerebellar arteries are patent on the left has a common trunk with the left anterior inferior cerebral artery. Basilar artery is patent without focal stenosis or intimal flap. Superior cerebellar arteries are patent without gross abnormality. caddy packer: Normal patency. No focal stenosis. No abrupt cut off. Ancillary findings: No main cerebral venous sinus thrombosis. Absent left thyroid lobe suggesting left hemithyroidectomy. No dominant nodules in the right thyroid lobe. Pulmonary mosaic pattern. Status post ACDF C5-6. IMPRESSION: No main cerebral artery occlusion or embolus or gross aneurysm. No high degree stenosis or dissection extracranial arteries. This critical test result is communicated to: Emergency physician Dr. Sandi Sandoval at 1:11 PM hours on September 03, 2025.. It was ascertained that the content and urgency of the report was understood at the time of direct communication. Electronically signed by: Stevenson Ojeda MD 09/03/2025 01:22 PM EDT
--- NOTE | ~2025-09-03 | MR_ITS ---
CLINICAL HISTORY: lt side weakness question stroke MR Brain without gadolinium Comparison: CT/SR - CT HEAD WITHOUT IV CONTRAST STROKE - 09/03/25 13:00 EDT Findings: The ventricles and subarachnoid spaces are normal in size and the ventricles are normal in position with no midline shift or herniation. No restricted diffusion. No territorial infarct. Multiple punctate nonspecific bilateral supratentorial subcortical greater than periventricular white matter hyperintense foci may represent chronic small-vessel ischemic changes. No focal mass lesion or mass effect on this unenhanced study. Incidentally noted partially empty sella. The midline structures are grossly normal. Flow voids are maintained within the major vessels of the base of the brain. Orbital contents are unremarkable. The sinuses and mastoid air cells are clear. No focal bone lesion. IMPRESSION: 1. No acute findings. Specifically no acute ischemia/infarct. 2. Nonspecific supratentorial white matter hyperintensities may represent chronic small-vessel ischemic changes. This document has been electronically signed by: Patito Rees MD on 09/03/2025 17:11:24
[2025-09-03 12:09] VITALS: BP 128/68; PULSE 70; RESP 16; TEMP 36.2; O2SAT 97; BMI 30.5
[2025-09-03 12:24] VITALS: BP 120/72; PULSE 63; RESP 16; O2SAT 96
--- NOTE | 2025-09-03 12:51 | ECG_ITS ---
Test Reason : stroke symtoms Blood Pressure : */* mmHG Vent. Rate : 61 BPM Atrial Rate : 61 BPM P-R Int : 156 ms QRS Dur : 84 ms QT Int : 450 ms P-R-T Axes : 88 -23 13 degrees QTcB Int : 453 ms Normal sinus rhythm Possible Anterolateral infarct (cited on or before 06-Jun-2024) Abnormal ECG When compared with ECG of 06-Jun-2024 15:47, No significant change was found Referred By: Sandi Sandoval Electronically Signed By: DENISHA LEE
--- NOTE | 2025-09-03 13:12 | ED_ITS ---
HPI - Neuro Symptoms/Deficit General Chief Complaint: Dizziness Stated Complaint: dizzy Time Seen by Provider: 09/03/25 12:25 Source: patient, family and old records reviewed Mode of arrival: ambulatory Limitations: no limitations History of Present Illness ED Provider: SUMEET HPI Narrative: 65 yo female with PMH Of GERD, HLD, not on blood thinners noted upon waking this AM at 630am she felt dizziness, nausea and was not able to walk. She noted it did go away but it returned and she cannot walk. She feels sick to her stomach. No recent trauma or URI. She notes no numbness or weakness. She states she got up at 130am to use bathroom and she was fine. She has no hx of vertigo. She has not vomited. She has no CP/SOB. Onset (ago): hour(s) (630am) Last Observed Normal: 01:30 Location: other History of same: No Severity: moderate Quality: intermittent Relieving factors: rest Exacerbating factors: other Context: sudden onset On Anticoagulants: No Associated symptoms: denies other symptoms Treatments Prior to Arrival: none Related Data Allergies Allergy/AdvReac Type Severity Reaction Status Date / Time azithromycin (Azithromycin) Allergy Mild RASH Verified 09/03/25 12:10 Review of Systems 2 Review of Systems: Constitutional : No Fever, No Chills, No Fatigue ENT/Mouth : No sore throat, No Rhinorrhea Eyes: No Eye Pain, No Swelling, No Redness Cardiovascular : No Chest Pain, No SOB, No Dyspnea on Exertion Respiratory : No Cough, No Sputum Gastrointestinal :pos Nausea, No Vomiting, No Diarrhea, No abdominal Pain Genitourinary : No Dysuria, No Urinary Frequency, No Hematuria, Musculoskeletal : No joint pain, No Myalgias, No Joint Swelling Skin : No Skin Lesions, No rash Neuro : No Weakness, No Numbness, pos Dizziness, no Headache All other systems reviewed and are negative PMFSH Past Medical History Attestation statement: The following information was validated with the patient. Source: old records reviewed Medical History Hyperlipidemia Social History Social History Smoked in Last 30 Days: No Use of substances other than those prescribed or required for medical reasons: No Advance Directives: No Advance Directives Information Provided: Yes Do you have a plan to hurt others: No Plan Physical Exam 2 Vital Signs: Vital Signs: Last Vital Signs Temp 97.1 F 09/03/25 12:09 Pulse 63 09/03/25 12:24 Resp 16 09/03/25 12:24 BP 120/72 09/03/25 12:24 Pulse Ox 96 09/03/25 12:24 O2 Del Method Room Air 09/03/25 12:24 BMI result Body Mass Index 30.5 Appearance: Alert. Oriented X3. No acute distress. Eyes: Pupils equal, round and reactive to light. some nystagmus when looking to the right ENT: Pharynx normal. Neck: Normal inspection. Neck supple. CVS: Normal heart rate and rhythm. Pulses normal. Respiratory: No respiratory distress. Breath sounds normal. Abdomen: Soft and nontender. Skin: Skin warm and dry. Normal skin color. Normal skin turgor. Extremities: No lower extremity edema. No calf ttp Neuro: Oriented X 3. L sided 4+/5 LUE and LLE some drift of left arm as well, some failure of finger to nose testing as well . No sensory deficit. CN2-12 intact Medications Administered Discontinued Medications Generic Name Dose Route Start Last Admin Trade Name Freq PRN Reason Stop Dose Admin Iohexol 100 ml 09/03/25 13:12 09/03/25 13:13 Iohexol 350 Mg/Ml 100 Ml Infus..Btl IV 09/03/25 13:13 70 ml ONCE ONE Administration Ondansetron HCl 4 mg 09/03/25 12:52 09/03/25 13:23 Ondansetron Hcl 4 Mg/2 Ml Vial IVPUSH 09/03/25 12:53 4 mg ONCE ONE Administration Medical Decision Making Medical Decision Making [facility] Narrative: 65 yo female with PMH Of GERD, HLD, not on blood thinners now here with dizziness and L sided deficits (she is R handed and didn't notice) she is out of window for TNK given last known well 130am I have ordered stroke protocol, if negative will start on aspirin. I am doing to admit for stroke workup Differential Diagnosis Differential Diagnoses: The differential diagnosis associated with the presentation includes vertigo, stroke, LVO, anemia Admission/Observation Consideration of admission/observation: Escalation of care including admission/observation considered admit for further work up Consult Healthcare Provider Management of the patient was discussed with: Hospitalist (will admit) Lab Data MDM Lab Attestation statement: I reviewed the patient's lab results. 09/03/25 13:16 09/03/25 13:16 Labs: Lab Results 09/03/25 09/03/25 09/03/25 Range/Units 13:10 13:14 13:16 WBC 8.1 (4.8-10.8) X10*3/uL RBC 4.60 (4.20-5.50) X10*6/uL Hgb 13.2 (12.0-16.0) g/dl Hct 41.0 (37.0-47.0) % MCV 89.1 (80.0-98.0) fL MCH 28.7 (27.0-33.0) pg MCHC 32.2 (31.0-35.0) g/dl RDW 14.0 (11.0-16.0) % Plt Count 271 (160-400) X10*3/uL MPV 8.9 L (9.4-12.3) fL Immature Gran % (Auto) 0.4 (0.0-0.4) % Neut % (Auto) 75.2 H (45-73) % Lymph % (Auto) 14.0 L (20-40) % [place] % (Auto) 7.6 (2-11) % Eos % (Auto) 2.3 (0-4) % Baso % (Auto) 0.5 (0-2) % Lymph # (Auto) 1.1 L (1.2-4.9) X10*3/uL [place] # (Auto) 0.6 (0.1-1.2) X10*3/uL Eos # (Auto) 0.2 (0.0-0.4) X10*3/uL Baso # (Auto) 0.0 (0.0-0.2) X10*3/uL Abs Immat Gran (auto) 0.03 (0.00-0.03) X10*3/uL Absolute Neuts (auto) 6.1 (2.0-8.3) x10*3/uL Absolute Nucleated RBC 0.000 (0.0-0.012) X10*3/uL Nucleated RBC % (auto) 0.0 (0.0-0.2) /100WBC PT 11.5 (10.9-12.4) SEC Whole Blood PT 11.6 (11.1-13.5) sec INR 1.0 (0.9-1.1) Whole Blood INR 1.0 (0.9-1.1) Sodium 139 (135-145) mmol/L Potassium 4.2 (3.3-5.1) mmol/L Chloride 108 (96-108) mmol/L Carbon Dioxide 25 (22-29) mmol/L Anion Gap 10 L (12-20) BUN 12 (9-16) mg/dL Creatinine 0.76 (0.5-1.4) mg/dL Estim Creat Clear Calc 86.4 Estimated GFR > 60 POC Glucose 96 (60-115) mg/dL Random Glucose 92 (60-115) mg/dL Estimat Average Glucose 111 mg/dL Hemoglobin A1c % 5.5 (<6.0) % Calcium 9.3 (8.4-10.2) mg/dL Magnesium 2.2 (1.6-2.6) mg/dL Total Bilirubin 0.3 (0.0-1.0) mg/dL Direct Bilirubin 0.1 (0.0-0.5) mg/dL AST 21 (5-31) U/L ALT 14 (0-31) U/L Alkaline Phosphatase 62 (39-117) U/L Troponin I High Sens < 2.7 (<3.5-17.0) ng/L Total Protein 6.9 (6.5-8.0) g/dL Albumin 4.4 (3.5-5.0) g/dL Triglycerides 171 H (<150) mg/dL Cholesterol 188 (<200) mg/dL LDL Cholesterol, Calc 92 (<100) mg/dL HDL Cholesterol 62 (>40) mg/dL Independent Interpretation I performed an independent interpretation of an: EKG and CT Scan (no ICH, no LVO) Interpretation: Rate: 61 Rhythm: NSR Palmer: left Normal P waves. Normal ELIDA. Normal QRS complex. ST T wave : inverted t waves V1 and V2, no OVI, flat t waves lateral leads qTC: 453 prior studies: no prior The study has been interpreted contemporaneously by me. . Radiology Impression Discussion of test interpretation with radiology: I discussed test interpretation with the radiologist and I have reviewed the radiologist's reading. Independent Historian Clinical information obtained from an independent historian. History obtained from or confirmed by: Other External Record Review External record reviewed: Outpatient record NIH Stroke Scale Internal: Initial- Upon Arrival Level of Consciousness: Alert Level of Consciousness Questions: Answers both questions correctly Level of Consciousness Commands: Performs both tasks correctly Best Gaze: Normal Visual: No visual loss Facial Palsy: Normal Motor Arm (Right): No drift Motor Arm (Left): Drift Motor Leg (Right): No drift Motor Leg (Left): Drift Limb Ataxia: Present in one limb Sensory: Normal Best Language: No aphasia Dysarthia: Normal Extinction and Inattention: No abnormality Score: 3 Discharge Plan Discharge Clinical Impression: Dizziness, Left-sided weakness Patient Disposition: Admitted As Inpatient Print Language: Welsh
[2025-09-03] MEDS: iohexoL 350 MG/ML 100 ML INFUS..BTL IV (13:13)
[2025-09-03 13:20] LABS: Prothrombin Time Whole Bld POC 11.6 sec (11.1-13.5); ~PT, ~INR - Anti Coag Clinic 1.0 (0.9-1.1)
[2025-09-03 13:21] LABS: MANUAL DIFF FLAG NO
[2025-09-03 13:21] LABS: Glucose, Whole Blood 96 mg/dL (60-115)
[2025-09-03 13:26] LABS: Hematocrit 41.0 % (37.0-47.0); Hemoglobin 13.2 g/dl (12.0-16.0); Imm Gran Abs Auto 0.03 X10*3/uL (0.00-0.03); Imm Gran Pct Auto 0.4 % (0.0-0.4); Lymphocytes Absolute Auto 1.1 X10*3/uL (1.2-4.9); Mean Corpuscular HGB Conc 32.2 g/dl (31.0-35.0); Mean Corpuscular Hemoglobin 28.7 pg (27.0-33.0); Mean Corpuscular Volume 89.1 fL (80.0-98.0); NRBC Abs Auto 0.000 X10*3/uL (0.0-0.012); NRBC Pct Auto 0.0 /100WBC (0.0-0.2); Platelet Count 271 X10*3/uL (160-400); Red Blood Count 4.60 X10*6/uL (4.20-5.50); White Blood Count 8.1 X10*3/uL (4.8-10.8)
[2025-09-03 13:31] LABS: INTERNATIONAL NORM RATIO 1.0 (0.9-1.1); Prothrombin Time 11.5 SEC (10.9-12.4)
[2025-09-03 13:39] LABS: Hemoglobin A1C 124.5905 umol/L
[2025-09-03 13:41] LABS: Alanine Aminotransferase 14 U/L (0-31); Albumin Level 4.4 g/dL (3.5-5.0); Alkaline Phosphatase 62 U/L (39-117); Anion Gap 10 (12-20); Aspartate Amino Transferase 21 U/L (5-31); Blood Urea Nitrogen 12 mg/dL (9-16); Calcium 9.3 mg/dL (8.4-10.2); Carbon Dioxide 25 mmol/L (22-29); Chloride 108 mmol/L (96-108); Cholesterol 188 mg/dL (<200); Creatinine Clr Calc Pharmacy 86.4; Estimated Glomerular Filt Rate > 60; HDL Cholesterol 62 mg/dL (>40); Magnesium 2.2 mg/dL (1.6-2.6); Potassium 4.2 mmol/L (3.3-5.1); Sodium 139 mmol/L (135-145); Total Protein 6.9 g/dL (6.5-8.0); Triglycerides 171 mg/dL (<150)
[2025-09-03 13:51] LABS: Troponin-I High Sensitivity < 2.7 ng/L (<3.5-17.0)
[2025-09-03 14:00] VITALS: BP 125/72; PULSE 63; RESP 16; O2SAT 96
--- NOTE | 2025-09-03 14:32 | P.CNNE_ITS ---
History of Present Illness Data of Consult Service Date: 09/03/25 Primary Care Provider: Nadira Diaz NP [facility] Reason for consult: Stroke 65 years old woman who came to hospital with a new onset of dizziness. She said that she did not have any such dizziness before. She woke up last night and everything was spinning. She felt unsteady. She went to bed and when she woke up again same thing was happening. In emergency room she was noted to have mild left-sided weakness. Initial head CT and CTA did not reveal any acute or a lesion that could be intervene. There was no associated visual symptom or ear symptom. She has chronic left ear ringing that was still there. She fell somewhat nauseous. She denied taking any new medicine or chemical. Review of Systems 2 Review of Systems: Constitutional:?No fever, chills, fatigue, weight loss, or night sweats. HEENT:? Complain of left ear ringing. Cardiovascular:?No chest pain, palpitations, orthopnea, PND, or leg swelling. Respiratory:?No cough, shortness of breath, wheezing, or hemoptysis. Gastrointestinal:? Complain of nausea Genitourinary:?No dysuria, frequency, incontinence, or hematuria. Musculoskeletal:?No joint pain, stiffness, weakness, or muscle aches. Neurological:? Complain of dizziness and nausea. Psychiatric:?No anxiety, depression, mood swings, sleep disturbance, or hallucinations. Endocrine:?No heat/cold intolerance, polydipsia, polyuria, or hair/skin changes. Hematologic/Lymphatic:?No easy bruising, bleeding, or lymphadenopathy. Integumentary (Skin):?No rash, lesions, itching, or color changes. Allergic/Immunologic:?No seasonal allergies, hives, or recurrent infections. [facility], [facility] Past Medical History Medical History Hyperlipidemia Social History Social History Smoked in Last 30 Days: No Use of substances other than those prescribed or required for medical reasons: No Advance Directives: No Advance Directives Information Provided: Yes Do you have a plan to hurt others: No Plan Meds Allergies Allergy/AdvReac Type Severity Reaction Status Date / Time azithromycin (Azithromycin) Allergy Mild RASH Verified 09/03/25 12:10 Physical Exam 2 Vital Signs: Vital Signs: Last Vital Signs Temp 97.1 F 09/03/25 12:09 Pulse 63 09/03/25 14:00 Resp 16 09/03/25 14:00 BP 125/72 09/03/25 14:00 Pulse Ox 96 09/03/25 14:00 O2 Del Method Room Air 09/03/25 14:00 BMI result Body Mass Index 30.5 Neuro: Other: Mental Status: Alert and oriented to person, place, and time. Normal attention. Normal spontaneous speech, fluency, and comprehension. No obvious issues with mood and memory. Affect is appropriate. Cranial Nerves: CN II: Visual darden full to confrontation, visual acuity intact. CN III, IV, : Pupils equal, round, reactive to light and accommodation. Extraocular movements are normal. CN V: Facial sensation is normal. CN VII: Facial movements symmetrical. CN VIII: Hearing intact to bedside conversation is normal. CN IX, X: Palate elevates symmetrically. CN XI: Shoulder shrug and head turn symmetrical. CN XII: Tongue midline without atrophy or fasciculations. Motor: She has mild left arm or leg weakness. Reflexes are slightly brisk on the left side. [id number] testing revealed normal pattern on the right and mild ataxia on the left. Extrapyramidal: Full facial expressions and blinking. No rigidity. Movements are appropriate with no tremor or abnormality. Speech: Normal; no dysarthria or tremor. Results Labs 09/03/25 13:16 09/03/25 13:16 Labs: Short CBC 09/03/25 Range/Units 13:16 WBC 8.1 (4.8-10.8) X10*3/uL Hgb 13.2 (12.0-16.0) g/dl Hct 41.0 (37.0-47.0) % Plt Count 271 (160-400) X10*3/uL BMP 09/03/25 13:16 Sodium 139 Potassium 4.2 Chloride 108 Carbon Dioxide 25 BUN 12 Creatinine 0.76 Calcium 9.3 Liver Function 09/03/25 Range/Units 13:16 Total Bilirubin 0.3 (0.0-1.0) mg/dL Direct Bilirubin 0.1 (0.0-0.5) mg/dL AST 21 (5-31) U/L ALT 14 (0-31) U/L Alkaline Phosphatase 62 (39-117) U/L Albumin 4.4 (3.5-5.0) g/dL CT HEAD WITHOUT CONTRAST (STROKE PROTOCOL) CLINICAL INFORMATION: Left-sided weakness. Dizziness. Concerning for stroke. COMPARISON: None available. TECHNIQUE: Contiguous axial imaging was performed from the skull base to vertex without intravenous administration of contrast. This CT examination was performed using dose optimization techniques as appropriate, variously including the following: *Automated exposure control *Adjustment of mA and/or kV according to patient size (this includes techniques or standardized protocols for targeted exams where dose is matched to indication/reason for exam; i.e. extremities or head) *Use of iterative reconstruction technique. DLP: 748 mGy-cm FINDINGS: No acute intracranial hemorrhage, mass effect, midline shift, hydrocephalus or herniation. Gamez-white matter differentiation is normal. No gross stents MCA. Posterior cranial fossa contents constrain no acute hemorrhage or mass effect. Sellar/suprasellar region demonstrated no gross masses. 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 Craniocervical junction is intact with normal position of the cerebellar tonsils. No air-fluid levels in the paranasal sinuses. Tympanic cavities and mastoid cells are aerated. CT/CT angio head neck STROKE IMPRESSION: No acute intracranial hemorrhage or acute brain abnormality by CT. EXAMINATION: CTA NECK WITH CONTRAST (STROKE) CTA BRAIN WITH CONTRAST (STROKE) CLINICAL INFORMATION: Left-sided weakness. Concerning for stroke. COMPARISON: None available. TECHNIQUE: CTA of the head and neck was performed in the axial plane from the mediastinum to the skull vertex using 70 mL Omnipaque 350 intravenous contrast. Additional reformatted multiplanar images including maximum intensity projection MIP images are generated on the CT workstation. This CT examination was performed using dose optimization techniques as appropriate, variously including the following: *Automated exposure control *Adjustment of mA and/or kV according to patient size (this includes techniques or standardized protocols for targeted exams where dose is matched to indication/reason for exam; i.e. extremities or head) *Use of iterative reconstruction technique. DLP: 674 mGy-cm FINDINGS: The degree of stenosis determined by criteria similar to NASCET. Chest CTA: No aneurysm or dissection, thoracic aorta. No focal stenosis. Neck CTA: Right CCA: Normal patency. No focal stenosis. No intimal flap. Right ICA: Normal patency. No focal stenosis. No intimal flap. Left CCA: Normal patency. No focal stenosis. No intimal flap. Left ICA: Normal patency. No focal stenosis. No intimal flap. Tortuosity. V1/V2 segments: Normal patency. No focal stenosis. No intimal flap. Right vertebral artery slightly dominant. Both arteries origin is directly from the subclavian artery. Brain CTA: Anterior cerebral circulation: ICAs: Normal patency. No focal stenosis. No abrupt cut off. No gross vascular irregularity. MCA's: Normal patency. No focal stenosis. No abrupt cut off. Bifurcation/trifurcation demonstrated no vascular abnormality. ACAs: Normal patency. No focal stenosis. No abrupt cut off. Ophthalmic arteries are patent without vascular abnormality. Posterior communicating arteries are patent without gross vascular abnormality. Anterior communicating artery is patent without gross vascular abnormality. Posterior cerebral circulation: V3/V4 segments: Normal patency. No focal stenosis. No intimal flap. Posterior inferior cerebellar arteries are patent on the left has a common trunk with the left anterior inferior cerebral artery. Basilar artery is patent without focal stenosis or intimal flap. Superior cerebellar arteries are patent without gross abnormality. scanning coordinator: Normal patency. No focal stenosis. No abrupt cut off. Ancillary findings: No main cerebral venous sinus thrombosis. Absent left thyroid lobe suggesting left hemithyroidectomy. No dominant nodules in the right thyroid lobe. Pulmonary mosaic pattern. Status post ACDF C5-6. IMPRESSION: No main cerebral artery occlusion or embolus or gross aneurysm. No high degree stenosis or dissection extracranial arteries. Assessment and Plan (1) Left-sided weakness: Status: Acute 65 years old woman with new onset of vertigo type dizziness and mild left hemiparesis on examination affecting arm or leg. This type of pattern is usually seen with brainstem small ischemic infarct. Initial head CT and CTA did not reveal any significant lesion. My recommendation is to obtain a noncontrast MRI of brain. In the meantime she should be treated with baby aspirin, statin, and involvement of PT and OT. Procedures Date of Service Date of Service: 09/03/25
--- NOTE | 2025-09-03 15:45 | HO.NURTONUR ---
Pt arrived c/o sudden onset dizziness described as room spinning, and noted LUE weakness on assessment. Pt stroke alert, CT neg, awaiting MRI (screening complete). Evaluated by PT, approved for x1 assist to bedside commode. Aaox4, normally independent/ambulatory. Pt given 81mg PO ASA and subq lovenox 40mg. Dizziness currently resolved, comes on with movement.
--- OUTSIDE RECORDS SUMMARY | 2025-09-03 15:55 | XMS_ITS | Encounter Summary ---
Author Organization [facility] Address [address] [place] [address] Phone Care Team Providers Care Employment Clerk Name Role Phone Chasidy Soto MD Primary Care Provider [phone] Reggie Mondragon MD Unavailable Nir Jade Unavailable [phone] Chasidy Soto MD Unavailable Nadira Diaz CNP Primary Care Provider [phone] Reid Norris MD Unavailable [phone] Marija Taylor OD Unavailable Devaughn Canseco MD Unavailable Barry Murry OD Unavailable Tommy Mar APRN Unavailable [phone] David Davis MD Unavailable [phone] Encounter Details Date Type Department Care Team (Late st Contact Info) Description 03/18/2023 Procedure Pass OR Admitting Dept - Virtual Department [address] [place], [place] [id number] Social History Tobacco Use Types Packs/Day Years Used Date Smoking Tobacco: Never Smokeless Tobacco: Never Alcohol Use Standard Drinks/Week Comments Yes 0 (1 standard drink = 0.6 oz pure alcohol) social, couple times a year maybe Child or Family Care Answer Date Record ed Do you have problems with on e of the following making it difficult for you to work, study, or receive health care? No 01/20/2023 Education Answer Date Recorded Are you interested in help w ith more adult education (for example, completing high school, GED, job training, learning the Croatian language, technical skills, or developing parenting skills)? I choose not to answer 01/20/2023 Food Answer Date Recorded Within the past 6 months we worried whether our food would run out before we got money to buy more. Never True 01/20/2023 Within the past 6 months the food we bought just didn't last and we didn't have enough money to get more. Never True Residential Stability Answer Date Recor ded What is your housing situation today? I have palak sing 01/20/2023 How many times have you move d in the past 12 months? Zero (I did not move) 01/20/2023 Paying for Meds Answer Date Recorded Do you have trouble paying for medicines? No 01/20/2023 Paying Utility Bills Answer Date Record ed Do you have trouble paying your heating or elect ricity bill? No 01/20/2023 Transportation Answer Date Recorded Has the lack of transportati on kept you from medical appointments or from getting medications? No 01/20/2023 Unemployment Answer Date Recorded Are you currently unemployed or working on a part-time or temporary basis, and looking for work? I choose not to answer 01/20/2023 Comments No Sex and Gender Information Value Date Recorded Sex Assigned at Female 03/26/2022 11:15 AM EDT Legal Sex Female 9:46 PM EDT Gender Identity Female 03/26/2022 11:15 AM EDT Sexual Orientation Straight 03/26/2022 11 :15 AM EDT documented as of this encounter Plan of Treatment Upcoming Encounters Date Type Department Care Team (Late st Contact Info) Description 09/10/2025 8:30 AM EST Office Visit [facility] [place] [address] [place] [address] [place] [address] Nadira Diaz CNP [address] [facility], [address] [place] [address] documented as of this encounter Visit Diagnoses Not on filedocumented in this encounter Additional Health Concerns Assessment Noted Time PHQ-9 Depression Total Score: 023 7:30 AM EDT PHQ-2 Depression Total Score: 01/21/20 23 7:30 AM EDT documented as of this encounter Care Teams Employment Clerk Relationship Specialty Start Date End Date Chasidy Soto MD [address] [place] [id number] PCP - General Internal Medicine 05/23/18 07/26/23 Nadira Diaz CNP [address] [place] [address], [address] [place] [address] PCP - General Adult Health 07/27/23 Reggie Monrdagon MD [address] [place] [phone] [email or web address] Endocrinology 08/04/22 Nir Jade PA [address] [place] [address] [place] [address] [email or web address] Surgery 08/04/22 Chasidy Soto MD [address] [place] [address] Insurance Assigned Provider 01/16/23 07/17/23 Reid Norris MD [address] [place] [address], [address] [place] [address] Family Medicine 07/27/23 Marija Taylor OD [address] [place] [address] Optometry 07/27/23 02/06/24 Devaughn Canseco MD [address] [place] [address], [place] [address] General Surgery 07/27/23 02/06/24 Barry Murry OD [address] [place] [address] [email or web address] 02/07/24 Tommy Mar APRN [address] [place] [address] [address] [place] [address] 02/07/24 David Davis MD [address] [place] [address] [address] [place] [address] Obstetrics and Gynecology 02/07/24 documented as of this encounter Additional Source Comments The information contained in this document represents components of the legal health record. It is not the complete legal health record.[facility]
--- OUTSIDE RECORDS SUMMARY | 2025-09-03 15:56 | XMS_ITS | Encounter Summary ---
Author Organization [facility] Address [address] [place] [address] Phone Care Team Providers Care Paster Operator Name Role Phone Chasidy Soto MD Primary Care Provider [phone] Reggie Mondragon MD Unavailable Nir Jade Unavailable [phone] Chasidy Soto MD Unavailable [phone] Nadira Diaz CNP Primary Care Provider [phone] Reid Norris MD Unavailable Marija Taylor OD Unavailable Devaughn Canseco MD Unavailable [phone] Barry Murry OD Unavailable Tommy Mar APRN Unavailable David Davis MD Unavailable Encounter Details Date Type Department Care Team (Latest Contact Info) Description 07/07/2018 Transcribe Orders [facility] Laboratory [address] [id number] Noemi Lee PA-C [address] [place] [address] Constipation, unspecified constipation type (Primary Dx); GERD with apnea; Anemia, unspecified type Social History Tobacco Use Types Packs/Day Years Used Date Smoking Tobacco: Never Assessed Comments Unknown Sex and Gender Information Value Date Recorded Sex Assigned at Female 03/26/2022 11:15 AM EDT Legal Sex Female 9:46 PM EDT Gender Identity Female 03/26/2022 11:15 AM EDT Sexual Orientation Straight 03/26/2022 11 :15 AM EDT documented as of this encounter Plan of Treatment Upcoming Encounters Date Type Department Care Team (Late st Contact Info) Description 09/10/2025 8:30 AM EST Office Visit [facility] [address] [place] [address] Nadira Diaz, YOVANNY [address] [facility] [place] [address] [email or web address] documented as of this encounter Results * (ABNORMAL) Vitamin B12 (07/07/2018 9:59 AM EDT) VITAMIN B12 >2000(H) 232 - 1245 pg/mL [facility] Blood 07/07/2018 9:59 AM EDT 07/07/2018 10:04 AM EDT us Noemi Lee PA-C LAB BLOOD ORDERABLES Final Resu lt Performing Organization Address [facility] Co de Phone Number [address] [address] * (ABNORMAL) Folate (07/07/2018 9:59 AM EDT) FOLIC ACID >20.0(H) 4.2 - 19.9 ng/mL [facility] Blood 07/07/2018 9:59 AM EDT 07/07/2018 10:04 AM EDT us Noemi Lee PA-C LAB BLOOD ORDERABLES Final Resu lt Performing Organization Address City/[facility]/ZIP Co de Phone Number [address] [address] * (ABNORMAL) Ferritin (07/07/2018 9:59 AM EDT) FERRITIN 6(L) 13 - 150 ug/L [facility] Blood 07/07/2018 9:59 AM EDT 07/07/2018 10:04 AM EDT us Noemi Lee PA-C LAB BLOOD ORDERABLES Final Resu lt Performing Organization Address City/[facility]/ZIP Co de Phone Number [address] [address] * TSH (07/07/2018 9:59 AM EDT) TSH 1.56 0.27 - 4.20 uIU/mL [facility] Blood 07/07/2018 9:59 AM EDT 07/07/2018 10:04 AM EDT us Noemi Lee PA-C LAB BLOOD ORDERABLES Final Resu lt Performing Organization Address [facility]/ZIP Co de Phone Number [address] [address] * (ABNORMAL) Iron and iron binding capacity (07/07/2018 9:59 AM EDT) IRON 26(L) 30 - 160 ug/dL [facility] IRON BINDING CAPACITY 396 228 - 428 ug/dL [facility] TRANSFERRIN SATURAT. 7(L) 15 - 50 % [facility] Blood 07/07/2018 9:59 AM EDT 07/07/2018 10:04 AM EDT us Noemi Lee PA-C LAB BLOOD ORDERABLES Final Resu lt Performing Organization Address City/[facility]/ZIP Co de Phone Number [address] [address] * (ABNORMAL) C-Reactive Protein (07/07/2018 9:59 AM EDT) C REACTIVE PROTEIN 5.7(H) 0.0 - 4.0 mg/L [facility] Blood 07/07/2018 9:59 AM EDT 07/07/2018 10:04 AM EDT us Noemi Lee PA-C LAB BLOOD ORDERABLES Final Resu lt [address] [address] * Comprehensive metabolic panel (07/07/2018 9:59 AM EDT) SODIUM 142 133 - 146 mmol/L [facility] POTASSIUM 4.4 3.3 - 5.1 mmol/L [facility] CHLORIDE 104 96 - 108 mmol/L [facility] CO2 23 21 - 35 mmol/L [facility] BUN 17 6 - 19 mg/dL [facility] CREATININE 0.90 0.5 - 1.5 mg/dL [facility] GLUCOSE 87 70 - 99 mg/dL [facility] ALBUMIN 4.0 3.9 - 4.8 g/dL [facility] TOTAL PROTEIN 7.4 6.5 - 8.0 g/dL [facility] CALCIUM 9.6 8.4 - 10.3 mg/dL [facility] ALKALINE PHOSPHATASE 105 39 - 117 U/L [facility] TOTAL BILIRUBIN 0.2 0.0 - 1.2 mg/dL [facility] AST 19 0 - 37 U/L [facility] ALT 25 0 - 40 U/L [facility] GLOBULIN 3.4 1 - 4.8 g/dL [facility] EGFR 71 >59 mL/min/1.7 3m2 [facility] Comment:If patient is black, multiply result by 1.159. Estimated glomerular filtration rate calculated using the CKD-EPI equation. ANION GAP 19 10 - 20 mmol/L [facility] Blood 07/07/2018 9:59 AM EDT 07/07/2018 10:04 AM EDT us Nomei Lee PA-C LAB BLOOD ORDERABLES Final Resu lt [address] [address] * (ABNORMAL) CBC (07/07/2018 9:59 AM EDT) WBC 8.06 3.40 - 11.20 K/uL [facility] RBC 4.71 3.80 - 4.80 M/uL [facility] HGB 10.1(L) 12.0 - 15.0 g/dL [facility] HCT 34.5(L) 36.0 - 46.0 % [facility] PLT 347 130 - 400 K/uL [facility] MCV 73.2(L) 79.0 - 98.0 fL [facility] MCH 21.4(L) 27.0 - 34.8 pg [facility] MCHC 29.3(L) 31.5 - 36.0 g/dL [facility] RDW 18.6(H) 10.8 - 14.6 % [facility] MPV 9.8 9.4 - 12.4 fl [facility] NRBC 0.00 /100 WBCs [facility] ABSOLUTE NRBC 0.00 K/uL [facility] Blood 07/07/2018 9:59 AM EDT 07/07/2018 10:04 AM EDT us Noemi Lee PA-C LAB BLOOD ORDERABLES Final Resu lt [address] [address] * Immunoglobulin A (07/07/2018 9:59 AM EDT) IgA 202 70 - 400 mg/dL [facility] Blood 07/07/2018 9:59 AM EDT 07/07/2018 10:04 AM EDT us Noemi Lee PA-C LAB BLOOD ORDERABLES Final Resu lt [address] [address] * Tissue transglutaminase IgA (07/07/2018 9:59 AM EDT) TTG IGA ANTIBODY <1.2 <4.0 (Negative) U/mL [facility] LAB MED AND PAT+ Blood 07/07/2018 9:59 AM EDT 07/07/2018 10:04 AM EDT us Noemi Lee PA-C LAB BLOOD ORDERABLES Final Resu lt [facility] LAB MED AND PAT+ [address] [place] [address] documented in this encounter Visit Diagnoses Diagnosis Constipation, unspecified constipation type- Primary GERD with apnea Esophageal reflux Anemia, unspecified type documented in this encounter Care Teams Paster Operator Relationship Specialty Start Date End Date Chasidy Soto MD [address] [place] [address] PCP - General Internal Medicine 05/23/18 07/26/23 Nadira Diaz CNP [address] [facility] [address] [place] [address] PCP - General Adult Health 07/27/23 Reggie Mondragon MD [address] [place] [phone] [email or web address] 08/04/22 Nir Jade PA [address] [place] [address] [place] [address] [email or web address] Surgery 08/04/22 Chasidy Soto MD [address] [place] [address] Insurance Assigned Provider 3/11/23 9/9/23 Reid Norris MD [address] [facility] [address] [place] [address] Family Medicine 07/27/23 Marija Taylor OD [address] [place] [address] Optometry 07/27/23 02/06/24 Devaughn Canseco MD [address] [place] [address], [place] [address] General Surgery 07/27/23 02/06/24 Barry Murry OD [address] [place] [address] m Optometry 02/07/24 Tommy Mar APRN [address] [place] [address] [address] [place] [address] 02/07/24 David Davis MD [address] [place] [address], [address] [place] [address] [email or web address] Obstetrics and Gynecology 02/07/24 documented as of this encounter Additional Source Comments The information contained in this document represents components of the legal health record. It is not the complete legal health record.[facility]
--- OUTSIDE RECORDS SUMMARY | 2025-09-03 15:56 | XMS_ITS | Encounter Summary ---
Author Organization [facility] Address [address] [place] [address] Phone Care Team Providers Care Metalizing Supervisor Name Role Phone Chasidy Soto MD Primary Care Provider Reggie Mondragon MD Unavailable [phone] Nir Jade Unavailable [phone] Chasidy Soto MD Unavailable Nadira Diaz CNP Primary Care Provider [phone] Reid Norris MD Unavailable Marija Taylor OD Unavailable Devaughn Canseco MD Unavailable [phone] Barry Murry OD Unavailable Tommy Mar APRN Unavailable David Davis MD Unavailable [phone] Encounter Details Date Type Department Care Team (Latest Contact Info) Description 10/12/2018 Ancillary Orders [facility], X-Ray - [address] [address] Levon Murphy MD [address] [place] [phone] [email or web address] Constipation, unspecified constipation type Social History Tobacco Use Types Packs/Day [...] Description 09/10/2025 8:30 AM EST Office Visit [facility] [address] [place] [address] Nadira Diaz, YOVANNY [address] [facility], [address] [place] [address] [email or web address] documented as of this encounter Results * XR ABDOMEN 1 VIEW (10/12/2018 12:37 PM EST) Anatomical Region Laterality Modality Abdomen Radiographic Rosio ging 10/13/2018 8:51 AM EST Impressions 10/14/2018 10:07 AM EST Impression: Unremarkable bowel gas pattern. Edited by: Isela Resendez on 10/13/2018 11:52 AM History: Note that history was not available at the time of the initial interpretation during the clinical downtime. This study was obtained to rule out retained capsule. No radiopaque structure is identified that could represent the retained capsule. Narrative 10/14/2018 10:07 AM EST Radiograph of abdomen, one view Comparison: None Findings: Multiple surgical clips in the right upper quadrant, probably from previous cholecystectomy. One drop clip projects over the right lower quadrant. Bowel gas pattern is unremarkable. No large amount of free air is present. Soft tissue outlines appear normal. No intra-abdominal masses are seen. Bony structures are intact. Procedure Note Sharmaine Lynch MD - 10/14/2018 Radiograph of abdomen, one view Comparison: None Findings: Multiple surgical clips in the right upper quadrant, probablyfrom previous cholecystectomy. One drop clip projects over the right lowerquadrant. Bowel gas pattern is unremarkable. No large amount of free airis present. Soft tissue outlines appear normal. No intra-abdominalmasses are seen. Bony structures are intact. IMPRESSION: Impression: Unremarkable bowel gas pattern. Edited by: Isela Resendez on 10/13/2018 11:52 AM History: Note that history was not available at the time of the initialinterpretation during the clinical downtime. This study was obtained torule out retained capsule. No radiopaque structure is identified thatcould represent the retained capsule. us Levon Murphy MD IMG XR ABDOMEN Final Result documented in this encounter Visit Diagnoses Diagnosis Constipation, unspecified constipation type Constipation, unspecified constipation type documented in this encounter Care Teams Metalizing Supervisor Relationship Specialty Start Date End Date Chasidy Soto MD [address] [place] [address] PCP - General Internal Medicine 05/23/18 07/26/23 Nadira Diaz CNP [address] [place] [address], [address] [place] [address] [email or web address] PCP - General Adult Health 07/27/23 Reggie Mondragon MD [address] [place] [phone] [email or web address] 08/04/22 Nir Jade PA [address] [place] [address] [place] [address] [email or web address] Surgery 08/04/22 Chasidy Soto MD [address] [place] [address] [email or web address] Insurance Assigned Provider 01/16/23 07/17/23 Reid Norris MD [address] [place] [address], [address] [place] [address] Family Medicine 07/27/23 Marija Taylor OD [address] [place] [address] Optometry 07/27/23 02/06/24 Devaughn Canseco MD [address] [place] [address], [place] [address] General Surgery 07/27/23 02/06/24 Barry Murry OD [address] [place] [address] Optometry 02/07/24 Tommy Mar APRN [address] [place] [address] [address] [place] [address] 02/07/24 David Davis MD [address] [place] [address], [address] [place] [address] [email or web address] Obstetrics and Gynecology 02/07/24 documented as of this encounter Additional Source Comments The information contained in this document represents components of the legal health record. It is not the complete legal health record.[facility]
--- OUTSIDE RECORDS SUMMARY | 2025-09-03 15:56 | XMS_ITS | Clinical Summary ---
Author Organization [facility] Address [address] [place] [id number] Phone Care Team Providers Care Net Software Engineer Name Role Phone Reggie Mondragon MD Unavailable Nir Jade Unavailable Nadira Diaz CNP Primary Care Provider [phone] Reid Norris MD Unavailable Barry Murry OD Unavailable Tommy Mar APRN Unavailable [phone] David Davis MD Unavailable Allergies Active Allergy Reactions Criticality Noted Date Comments Azithromycin Hives,Itching High 03/24/2022 Medications ferrous sulfate 325 mg (65 mg huslia iron) tablet Take 325 mg by mouth daily. Active MAGNESIUM ORAL Take 500 mg by mouth daily. Active ascorbic acid (VITAMIN C ORAL) Take 500 mg by mouth daily. Active FOLIC ACID ORAL Take 400 mcg by mouth daily. Active diphenhydrAMINE (BENADRYL) 25 mg tablet Take 25 mg by mouth nightly at bedtime as needed for sleep. Active QUEtiapine (SEROQUEL) 50 MG tabletIndication s:Adjustment disorder with mixed anxiety and depressed mood Take 1 tablet (50 mg total) by mouth daily as needed. 90 tablet 3 05/26/20 23 Active FLUoxetine (PROZAC) 20 MG capsuleIndicatio ns:Adjustment disorder with mixed anxiety and depressed mood Take 1 capsule (20 mg total) by mouth daily. 90 capsule 11/24/19 24 Active montelukast (SINGULAIR) 10 mg tablet TAKE 1 TABLET BY MOUTH DAILY. 90 tablet 3 02/10/20 25 Active pravastatin (PRAVACHOL) 40 MG tablet TAKE ONE TABLET BY MOUTH EVERY DAY 90 tablet 2 03/19/20 25 Active pantoprazole (PROTONIX) 40 MG tablet TAKE ONE TABLET BY MOUTH EVERY DAY NEEDED 90 tablet 3 07/30/20 25 Active tolterodine (DETROL LA) 4 MG 24 hr capsuleIndicatio ns:Urinary frequency TAKE ONE CAPSULE BY MOUTH EVERY DAY 90 capsule 3 08/06/20 25 Active tolterodine (DETROL LA) 4 MG 24 hr capsuleIndicatio ns:Urinary frequency TAKE ONE CAPSULE BY MOUTH EVERY DAY 90 capsule 3 11/07/20 24 025 Discontinued ZEPBOUND 10 mg/0.5 mL subcutaneous penIndications:C lass 1 obesity with serious comorbidity and body mass index (BMI) of 32.0 to 32.9 in adult, unspecified obesity type Inject 0.5 mL (10 mg total) under the skin once a week for 16 doses. 2 mL 3 05/08/20 25 025 Active Problems Problem Noted Date Diagnosed Date Acquired hypothyroidism 02/12/2025 Assessment & Plan (05/08/2025 10:32 AM EDT): Now managed through this practice. Update labs. Orders: TSH; Future Free T4; Future Assessment & Plan (02/12/2025 2:00 PM EDT): Teena will have labs from Dr. Mondragon today. She reports that he would like hypothyroidism to be managed here going forward. Monitor closely given weight loss. Call with 10% weight loss to update labs. Received and reviewed last note on DOS. Seasonal allergic rhinitis due to pollen 024 Assessment & Plan (02/12/2025 1:29 PM EDT): Managed with Singualir. Continue the same. Assessment & Plan (03/07/2024 2:00 PM EDT): I recommended that she start loratadine or cetirizine, continue Singulair. Call with worsening and could consider intranasal steroid. Avoid care home use of diphenhydramine. Encounter for general adult medical examination with abnormal findings 02/07/2024 Assessment & Plan (02/12/2025 1:29 PM EDT): Immunizations are up to date. Eligible for RSV vaccine if desired. Warnign signs of breast cancer and breast self-awareness reviewed. Pap smears have been discontinued per ASCCP guidelines. Colonoscopy per GI. Labs are up to date. Assessment & Plan (02/07/2024 1:46 PM EDT): Eligible for RSV and Covid vaccines at the pharmacy. Otherwise, she is up to date with immunizations. Warning signs of breast cancer and breast self-awareness reviewed. Continue annual BURNING SUPERVISOR follow up. Next screening colonoscopy 2030 per GI. Fasting labs as below. Continue regular dental and eye care. Nail deformity 12/01/2023 Assessment & Plan (12/01/2023 4:43 PM EST): I discussed her case with MANDEEP Richard. She recommends x-ray today and schedules Teena for a visit with Dr. Abel tomorrow. Teena understands that orthopedics evaluation may be recommended. She will elevate the finger above her heart tonight, wash with gentle soap and water as needed and keep covered. S/P repair of ventral hernia 2023 Right Achilles tendinitis 09/25/2022 Assessment & Plan (09/25/2022 7:26 AM EST): Tender lump on exam, posterior right heel Suspect tendinitis To Ortho for further evaluation Allergic contact dermatitis 07/22/2022 Assessment & Plan (07/22/2022 1:58 PM EDT): Unclear etiology Risks/benefits of therapy explained, including MAT and other treatment options. Trial of Medrol See wrap up educ re side effects of meds Patient verbalized understanding and agreement of the above Cervical radiculopathy 07/05/2022 Assessment & Plan (02/07/2024 1:49 PM EDT): Symptoms well controlled at this time. Assessment & Plan (07/27/2023 1:07 PM EDT): Intermittent left upper extremity numbness and tingling with objective weakness on exam. I asked her to reach out to Dr. Johnston's practice as she was referred there in the spring. Assessment & Plan (01/25/2023 10:53 AM EDT): Mod to severe symptoms To Neurosurgery katie Assessment & Plan (11/17/2022 11:47 AM EST): Left-sided hand weakness corresponding to C5 or C6 radiculopathy. It would be hard to believe that simply sleeping wrong back in [facility] would result in the hand weakness and the patient does have history of neck surgery approximately 4 years ago. So its difficult to say if this is new or old but she reports that she was dropping items after this occurred and not before hand. For the first up will obtain an x-ray of the cervical spine and see if there is any encroachment on the r, then also referral to physical therapy. To help with sleep and with pain cyclobenzaprine to reduce upper back and neck spasms. Follow-up with primary already scheduled in January. Assessment & Plan (09/25/2022 7:26 AM EST): Current denies focal neuro deficits Will monitor To Neurosurgery if worsens Assessment & Plan (07/05/2022 11:41 AM EDT): Reports new progressively worsening but intermittent LUE numbness and weakness Reportedly had a cervical fusion 5-6 years ago Check MRI Patient to call immediately for severe symptoms Hyperlipidemia 07/03/2022 Assessment & Plan (02/12/2025 1:29 PM EDT): Adequately managed with statin at current dosing. Continue the same. Assessment & Plan (12/19/2024 12:03 PM EST): Managed with pravastatin. Continue the same. Check lipids with fasting labs before next visit. Orders: tirzepatide, weight loss, (ZEPBOUND) 7.5 mg/0.5 mL subcutaneous pen; Inject 0.5 mL (7.5 mg total) under the skin every 7 days for 12 doses. Lipid panel; Future Assessment & Plan (02/07/2024 1:50 PM EDT): LDL warner 30 points with last labs. Update lipid profile, BMP, and A1c in May. Continue regular walking. Assessment & Plan (07/27/2023 1:06 PM EDT): She tolerates statin well. Update fasting labs in the fall. Assessment & Plan (01/25/2023 10:53 AM EDT): Controlled on med Assessment & Plan (09/25/2022 7:24 AM EST): Recent med change Unclear if stable, check lab Assessment & Plan (07/05/2022 11:39 AM EDT): Uncontrolled Long discussion She agrees with my recommendation to start Pravastatin Recheck labs 3-4 weeks Risks/benefits of therapy explained, including MAT and other treatment options. Nail dystrophy 07/03/2022 Assessment & Plan (07/05/2022 11:42 AM EDT): Refer to podiatry due to unclear etiology Class 1 obesity with serious comorbidity and body mass index (BMI) of 32.0 to 32.9 in adult 03/26/2022 Assessment & Plan (05/08/2025 10:32 AM EDT): She has recently been experiencing hair loss which is a known side effect of this medications. I encouraged increased water intake. Continue Zepbound at current dosing as she continues to have gradual weight loss and tolerates it well. She has been walking less because of back discomfort but will work on getting back to more regular physical activity. Return in 4 months, sooner if needed. Orders: ZEPBOUND 10 mg/0.5 mL subcutaneous pen; Inject 0.5 mL (10 mg total) under the skin once a week for 16 doses. Assessment & Plan (03/23/2025 11:36 AM EDT): Tolerating dose adjustment of Zepbound. Weight continues to trend down. Assessment & Plan (02/12/2025 1:29 PM EDT): Weight is stable since December. Increase Zepbound to 10 mg weekly. Continue regular walking, yoga, and resistance exercises. Ensure adequate water, fiber, protein. We reviewed potential for s/e with increasing dosing. Orders: tirzepatide, weight loss, (ZEPBOUND) 10 mg/0.5 mL subcutaneous solution vial; Inject 0.5 mL (10 mg total) under the skin every 7 days for 12 doses. Assessment & Plan (12/19/2024 12:03 PM EST): She has lost another 4 pounds since October. Walking has been limited in the past week but she continues to use free weights at home most days. Continue to focus on adequate protein, fiber, and water intake. She would like to increase her dose of medication and I sent a prescription for Zepbound 7.5 mg weekly. Call with nausea, abdominal pain or constipation. Re-evaluate at office visit on 02/12, sooner with s/e. Orders: tirzepatide, weight loss, (ZEPBOUND) 7.5 mg/0.5 mL subcutaneous pen; Inject 0.5 mL (7.5 mg total) under the skin every 7 days for 12 doses. CBC; Future Basic metabolic panel; Future Hemoglobin A1c; Future Assessment & Plan (10/16/2024 9:51 AM EST): Commended for weight loss; she has lost 7 pounds since July and tolerates semaglutide without difficulty. Because of formulary changes, she needs to transition to Zepbound. I elected to have her take 1 month at 2.5 mg weekly and then increase to 5 mg weekly if tolerating well. We reviewed common side effects. Next 2 doses are sent. I encouraged her to continue to walk and do yoga. Continue weight lifting at least a couple of days/week. Ensure adequate dietary protein. She is scheduled for CPE in February. We may update labs at that time. Orders: tirzepatide, weight loss, (ZEPBOUND) 2.5 mg/0.5 mL subcutaneous pen; Inject 0.5 mL (2.5 mg total) under the skin every 7 days for 4 doses. tirzepatide (MOUNJARO) 5 mg/0.5 mL PnIj subcutaneous pen; Inject 0.5 mL (5 mg total) under the skin every 7 days for 4 doses. Assessment & Plan (08/01/2024 9:51 AM EDT): Continue regular walking. Add resistance exercise with body weights, free weights, or bands; she will discuss with her son who lifts weights regularly. We discussed the importance of following a reduced calorie diet, careful portion control. She accepts a prescription for Wegovy 0.25 mg weekly. If she is able to access this she will send me a message in 3 weeks to let me know how she is tolerating it so we can prepare to titrate to 0.5 mg weekly. We may continue the 0.5 mg dose for 2 months and then have her return for an office visit. I asked her to monitor her mood symptoms closely on this medication. For now, continue statin at current dosing. She agrees. Assessment & Plan (09/25/2022 7:25 AM EST): Long discussion today regarding need for healthy diet, exercise, weight loss Assessment & Plan (03/26/2022 12:17 PM EDT): As discussed, Continue to focus on healthy diet and exercise REGINA (obstructive sleep apnea) 03/26/2022 Assessment & Plan (02/12/2025 1:29 PM EDT): Intolerant of CPAP. REGINA could be contributed to slowed weight loss . Assessment & Plan (02/07/2024 1:51 PM EDT): Intolerant of CPAP. We discussed that untreated REGINA can worsen mood symptoms. She is willing to revisit this if needed. Assessment & Plan (03/26/2022 12:02 PM EDT): We'll refer you to Dr. Hsu for further eval and treatment of this Adjustment disorder with mixed anxiety and depre ssed mood 03/26/2022 Assessment & Plan (02/12/2025 1:29 PM EDT): Mood symptoms are stable on medications prescribed by commutator v ring assembler. Follow up regularly as planned. Assessment & Plan (02/07/2024 1:49 PM EDT): Inadequately treated. She denies plan to self harm and contracts for safety. Her partner is supportive. We discussed PHP programs and I encouraged her to consider these and provided contact information. I provided the contact for NUCLEAR PHYSICS PROFESSOR crisis. She will start reaching out to therapists and I also encouraged her to reach back out to Tommy Mar regarding medications. Assessment & Plan (12/01/2023 4:44 PM EST): I provided feedback on her list of contracted prescribers and she will start to make some calls. For now, continue current medication. She understands the need for dedicated care. Assessment & Plan (07/27/2023 1:07 PM EDT): Her last PCP did recommend medical terminologist follow up through a therapist and prescriber and I think this is appropriate. Given a list of local providers. She has adequate refills available at this time. Assessment & Plan (01/25/2023 10:53 AM EDT): Struggling with depression Discussed options today Refer to psychiatry katie Assessment & Plan (09/25/2022 7:27 AM EST): Stable on meds per patient Assessment & Plan (07/22/2022 1:59 PM EDT): Educated patient re possible side effects of Medrol, including psychosis Patient to monitor and let her partner know that she is on the med Patient verbalized understanding and agreement of the above Assessment & Plan (07/05/2022 11:41 AM EDT): Still struggling with symptoms but feeling a little bit better emotionally Assessment & Plan (03/26/2022 12:19 PM EDT): Long discussion with patient Denies active SI +anx/dep Declines ref to Psych Continue current meds Please call immediately if you have any thoughts of hurting yourself Call Crisis if you feel it's desperate We can refer you to Dr. Barron a Psychiatrist at [facility] if you feel you need to change your medications, etc. Mild intermittent asthma without complication Assessment & Plan (02/12/2025 1:29 PM EDT): No recent use of albuterol. Assessment & Plan (01/25/2023 10:53 AM EDT): stable Assessment & Plan (03/26/2022 12:17 PM EDT): Glad this is stable, call if issues Resolved Problems Problem Noted Date Diagnosed Date Resolved Date Prediabetes 02/07/2024 08/01/2024 Acute left-sided low back pa in with left-sided sciatica 02/07/2024 10/16/2024 Assessment & Plan (02/07/2024 1:48 PM EDT): 2 week history of acute left sided low back pain. Reviewed her chart. LS MRI 2019 demonstrated multilevel degenerative changes with left sided disc protrusion which may have worsened. She has tolerated muscle relaxant in the past and can try this at bedtime as needed for the next 2 weeks. Use sparingly given other medications and depression. Try topical heat. Return to [facility]. We reviewed symptoms of cauda equina which are not present and she understands that this is a medical emergency. Dysuria 01/18/2024 08/01/2024 Assessment & Plan (03/07/2024 1:59 PM EDT): Urinalysis is completely normal today. I recommended that she remain off AZO, push fluids. If symptoms recur, consider repeat urine culture. She verbalizes understanding. Assessment & Plan (01/18/2024 1:02 PM EDT): She reports that these symptoms feel similar to her prior UTIs. Will treat presumptively with nitrofurantoin x 5 days. No prior cultures available. Avoid bladder irritants, push fluids. Call with worsening symptoms, failure to improve. We reviewed symptoms of ascending infection and urosepsis. She verbalizes understanding. Acute pain of left knee 12/01/2023 12/0 07/2024 Assessment & Plan (12/01/2023 4:43 PM EST): Suspect degenerative component possibly causing popliteal cyst. Check x-ray to start. Consider orthopedics and/or PT based on results. Obesity, morbid 01/25/2023 07/27/2023 Impaired fasting blood sugar 07/03/2022 02/12/2025 Assessment & Plan (12/19/2024 12:03 PM EST): Check BMP and A1c fasting prior to next appointment. Orders: tirzepatide, weight loss, (ZEPBOUND) 7.5 mg/0.5 mL subcutaneous pen; Inject 0.5 mL (7.5 mg total) under the skin every 7 days for 12 doses. Hemoglobin A1c; Future Assessment & Plan (07/27/2023 1:06 PM EDT): Last fasting glucose 100. Check A1c with next labs. Assessment & Plan (09/25/2022 7:24 AM EST): Prediabetes: As discussed during visit today, Educated re risk of Diabetes and lifestyle changes needed Assessment & Plan (07/05/2022 11:39 AM EDT): Educated to decrease carbs in diet Colon cancer screening 07/03/202202/06 Assessment & Plan (01/25/2023 10:53 AM EDT): UTD Assessment & Plan (07/05/2022 11:42 AM EDT): Patient reports that she's UTD with this Need for hepatitis C screening test 03/26/2022 07/27/2023 Screening for human immunodeficiency virus 03/26/2022 07/27/2023 Routine general medical exam ination at a health care facility 03/26/2022 07/27/2023 Assessment & Plan (01/25/2023 10:54 AM EDT): USPSTF recommendations A&B appropriate per patient's age and gender reviewed with patient -cervical cancer screening- referral to BURNING SUPERVISOR -encourage healthy lifestyle choices --Immunizations: Shingrix #2 today Assessment & Plan (03/26/2022 12:07 PM EDT): Colonoscopy UTD Mammo when due Self Breast Exams every 2-3 months NEED GYNECOLOGY APPT KATIE - PLEASE CALL Anemia 03/26/2022 08/01/2024 Assessment & Plan (09/25/2022 7:24 AM EST): Currently resolved Assessment & Plan (03/26/2022 12:16 PM EDT): Unclear if stable, check lab Thyroid nodule 03/26/2022 02/07/2024 Assessment & Plan (07/27/2023 1:06 PM EDT): Referral sent to Dr. Canseco to be back dated to recent visit in June. She will proceed to left thyroid lobectomy and follow up with Dr. Mondragon afterwards for monitoring TSH. Assessment & Plan (09/25/2022 7:25 AM EST): Has f/u with Dr. Mondragon in Dec + visible on exam today Assessment & Plan (07/05/2022 11:39 AM EDT): Sees Dr. Mondragon Assessment & Plan (03/26/2022 12:17 PM EDT): Follow up with Dr. Mondragon as discussed Malaise and fatigue 03/26/2022 02/07/20 Assessment & Plan (03/26/2022 12:21 PM EDT): As discussedLikely multifactorial Let's check some labs Continue to focus on healthy diet and exercise Acute right-sided low back p ain without sciatica 03/26/2022 07/27/2023 Assessment & Plan (03/26/2022 12:23 PM EDT): As discussed, likely musculoskeletal/mechanical Recommend OTC analgesics - e.g. ibuprofen, etc., monitor for GI side effects, can do referral to PT too Vitamin D deficiency 03/26/2022 023 Assessment & Plan (09/25/2022 7:25 AM EST): Stable on meds Assessment & Plan (03/26/2022 12:17 PM EDT): Unclear if stable, check lab Encounters Date Type Department Care Team Description 08/06/2025 [facility] RISK SCORES SYSTEM GENERATED External System Generated Encounter [id number] [place] [address] Unknown, Unknown, MD 08/04/2025 Refill [facility] [address] [place] [address] David Davis MD Medication Refill 07/30/2025 Refill [facility] [address] [place] [address] Nadira Diaz CNP Medication Refill from Last 3 Months Immunizations Immunization Administration Dates Next Due INFLUENZA, SPLIT VIRUS, TRIVALENT PF 08/01/2024 Influenza Quadrivalent Preservative Free IM 07/09 Influenza Quadrivalent w/ Preservative IM 2019 Influenza, Unspecified Formulation 07/15/2022 Pneumococcal conjugate PCV13 02/15/2013 Pneumococcal polysaccharide PPSV23 07/03/2022 Td (adult),2 Lf Tetanus Toxoid, PF, Adsorbed Tdap 03/12/2009 Zoster live 09/26/2015 Zoster recombinant 01/25/2023,10/08/2022 Family History Medical History Relation Comments Diabetes mellitus Brother 1 No contact Hyperlipidemia Brother 2 Obesity Brother 2 Sudden Brother 3 R/T MARIAN Diabetes mellitus Father Glaucoma Father Bone cancer Maternal Aunt No Known Problems Maternal Grandfather No Known Problems Maternal Grandmother Breast cancer Mother [address] diagnosis No Known Problems Paternal Grandfather No Known Problems Paternal Grandmother Sudden cardiac Paternal Uncle Age 80s Obesity Son Tx with lifestyl e modifications Colon cancer Neg Hx Macular degeneration Neg Hx Prostate cancer Neg Hx Stroke Neg Hx Relation Status Comments Brother 1 Alive Brother 2 Alive Brother 3 Father (Age 64) Maternal Aunt Maternal Grandfather Maternal Grandmother Mother (Age 41) Paternal Grandfather Paternal Grandmother Paternal Uncle Son Alive Social History Tobacco Use Types Packs/Day Years Used Date Smoking Tobacco: Never Smokeless Tobacco: Never Tobacco Cessation:Counseling Given: Not Answered Alcohol Use Standard Drinks/Week Comments Yes 0 (1 standard drink = 0.6 oz pur e alcohol) ~1 drink/month or less (2024) Child or Family Care Answer Date Record ed Do you have problems with on e of the following making it difficult for you to work, study, or receive health care? No 02/06/2025 Education Answer Date Recorded Are you interested in help w ith more adult education (for example, completing high school, GED, job training, learning the [place] language, technical skills, or developing parenting skills)? No 02/06/2025 Are you concerned about learning? Not on file 02/06/2025 No 02/06/2025 Yes 02/06/2025 Food Answer Date Recorded Within the past 6 months we worried whether our food would run out before we got money to buy more. Never True 02/06/2025 Within the past 6 months the food we bought just didn't last and we didn't have enough money to get more. Never True Residential Stability Answer Date Recor ded What is your housing situation today? I have palak sing 02/06/2025 How many times have you move d in the past 12 months? Zero (I did not move) 02/06/2025 Paying for Meds Answer Date Recorded Do you have trouble paying for medicines? No 02/06/2025 Paying Utility Bills Answer Date Record ed Do you have trouble paying your heating or elect ricity bill? No 02/06/2025 Transportation Answer Date Recorded Has the lack of transportati on kept you from medical appointments or from getting medications? No 02/06/2025 Unemployment Answer Date Recorded Are you currently unemployed or working on a part-time or temporary basis, and looking for work? I choose not to answer 01/20/2023 Digital Access Answer Date Recorded No 02/06/2025 Yes 02/06/2025 Do you have reliable internet access at home? Ye s 02/06/2025 Do you have a device (e.g., phone, tablet, computer) with a working camera? Yes 02/06/2025 SNAP & WIC Answer Date Recorded Do you receive benefits from SNAP (the Supplemental Nutrition Assistance Program) or the Food Stamp Program? Yes 02/06/2025 SNAP is a free program, interested in learning m ore? Not on file 02/06/2025 Can we help you enroll in SNAP? Not on file 02/06/2025 Benefits received from WIC? Not on file 11/2024 WIC is a free program, interested in learning mo re? Not on file 02/06/2025 Can we help you enroll in WIC? Not on file 0 02/06/2025 Intimate Partner Violence Answer Date R ecorded Denied Basic Needs Not on file 02/06/2025 In the past 12 months have y ou been in a relationship with a person who hurts, threatens, or tries to control you? No 02/06/2025 Worried food would run out Not on file 02/06 In the past 12 months have y ou been in a relationship with a person who hurts, threatens, or tries to control you? No 02/06/2025 Comments No Sex and Gender Information Value Date Recorded Sex Assigned at Female 03/26/2022 11:15 AM EDT Legal Sex Female 9:46 PM EDT Gender Identity Female 03/26/2022 11:15 AM EDT Sexual Orientation Straight 03/26/2022 11 :15 AM EDT Last Filed Vital Signs Vital Sign Reading Time Taken Comments Blood Pressure 122/66 05/08/2025 9:45 AM EDT Pulse 65 05/08/2025 9:45 AM EDT Temperature 36.4 C (97.5 F) 05/08/2025 9:45 AM EDT Respiratory Rate 18 03/18/2023 5:45 PM EDT Oxygen Saturation 97% 05/08/2025 9:45 AM EDT Inhaled Oxygen Concentration - - Weight 93.4 kg (206 lb) 05/08/2025 9:45 AM EDT Height 168.5 cm (5' 6.34 ) 05/08/2025 9:45 AM ED T Body Mass Index 32.91 05/08/2025 9:45 AM EDT Plan of Treatment Upcoming Encounters Date Type Department Care Team (Late st Contact Info) Description 09/10/2025 8:30 AM EST Office Visit [facility] [address] [place] [address] Nadira Diaz, HOSPICE ADMINISTRATOR [address] [facility] [place], [place] [id number] Health Maintenance Due Date Last Done Comments COLOGUARD 2007 FIT TEST 2007 FOBT 2007 SIGMOIDOSCOPY 2007 VIRTUAL COLONOSCOPY 2007 RSV VACCINE (1 - Risk 50-74 years 1-dose series) 2012 INFLUENZA VACCINE (#1) 2025 , 07/27/2023, 07/15/2022, Additional history exists COVID-19 VACCINE ( - 2024- season) 2025 10/08/2022, 10/09/2021, 03/19/2021, Additional history exists DEPRESSION SCREENING 02/06/2026 02/06/2025, 10/10/20 24 MAMMOGRAM 04/17/2027 04/17/2025, 01/06, 04/27/2022, Additional history exists PNEUMOCOCCAL VACCINES (50+ years) (3 of 3 - PCV20 or PCV21) 07/03/2027 07/03/2022, 02/15/2013 SCREENING FOR DIABETES 03/23/2028 03/23/2025, 2024 COLONOSCOPY 07/15/2028 07/15/2018 COLORECTAL CANCER SCREENING 07/15/2028 LIPID PANEL 02/07/2030 02/07/2025, 08/0 06/2024, 06/15/2024, Additional history exists Adult Td,Tdap Booster 03/26/2032 03/26/2022, 009 HEPATITIS C SCREENING Completed 06/30/2022, 022 HIV ONE-TIME SCREENING (18-65 YEARS) Completed 06/30/2022 ZOSTER VACCINES Completed 01/25/2023, 12/0 11/2021, 09/26/2015 SMOKING STATUS SCREENING (Once After 26 Yrs) Completed 05/08/2025 HEPATITIS A VACCINES Aged Out No long er eligible based on patient's age to complete this topic HIB VACCINES Aged Out No longer eligi ble based on patient's age to complete this topic MENINGOCOCCAL VACCINES (ACWY) Aged Out No longer eligible based on patient's age to complete this topic MENINGOCOCCAL VACCINES (B) Aged Out N o longer eligible based on patient's age to complete this topic Medical Devices Implanted Type Area It Generalist Device Identifier Shelf Expiration Date Model / Serial / Lot Nodata NODATA Spine Cervical Description:Fusion C4-C5 Mesh Graft 4.5in [address] Polypropylene Hernia Monofil Hydrogel Echo Ps Positioning System Repair [employer] - [id number] Implanted:Qty: 1 on 03/18/2023 by Amparo Puente MD at [facility] N/A: Abdomen [employer] 08/06/2024 [id number] / / [id number] Procedures Procedure Name Priority Date/Time Associated Diagnosis Comments BI MAMMOGRAM SCREENING WITH TOMOSYNTHESIS WITH CAD (BILATERAL) Routine 04/17/2025 8:44 AM EDT Visit for screening mammogram LIPID PANEL Routine 02/07/2025 8:03 AM EDT Mixed hyperlipidemia HEPATITIS C ANTIBODY, QUALITATIVE Routine 06/30/2022 7:26 AM EDT Need for hepatitis C screening test HM COLONOSCOPY FOR RESULT ENTRY ONLY Routine 07/15/2018 from Last 3 Months or Most Recently Relevant to Health Maintenance Results * BI MAMMOGRAM SCREENING WITH TOMOSYNTHESIS WITH CAD (BILATERAL) (04/17/2025 8:44 AM EDT) Anatomical Region Laterality Modality Breast Left, Breast Right, Breast Bilateral Bila teral Mammography 04/17/2025 6:14 PM EDT Impressions 04/17/2025 6:17 PM EDT No mammographic evidence of malignancy in either breast. Annual screening mammography is recommended. BI-RADS 1 NEGATIVE The patient will be notified of the results and recommendations. Narrative 04/17/2025 6:17 PM EDT BI MAMMOGRAM SCREENING WITH TOMOSYNTHESIS WITH CAD (BILATERAL) Additional patient information: Screening. COMPARISON: Comparison is made with relevant prior imaging. Breast composition: The breasts are almost entirely fatty. FINDINGS: No abnormal masses, suspicious calcifications, or other significant findings are identified mammographically in either breast. Procedure Note Chioma Oliver MD - 04/17/2025 BI MAMMOGRAM SCREENING WITH TOMOSYNTHESIS WITH CAD (BILATERAL) Additional patient information: Screening. COMPARISON: Comparison is made with relevant prior imaging. Breast composition: The breasts are almost entirely fatty. FINDINGS: No abnormal masses, suspicious calcifications, or other significantfindings are identified mammographically in either breast. IMPRESSION: No mammographic evidence of malignancy in either breast. Annual screening mammography is recommended. BI-RADS 1 NEGATIVE The patient will be notified of the results and recommendations. Nadira Diaz [facility] IMG MG EXAMS Final Res ult * Lipid panel (02/07/2025 8:03 AM EDT) HDL 54 mg/dL Comment: Interpretation <40 mg/dL: Low HDL cholesterol (major risk factor for CHD) Greater than or equal to 60 mg/dL: High HDL cholesterol ( negative risk factor for CHD) HDL - cholesterol is affected by a number of factors, e.g. smoking, excerise, hormones, sex and age. CHOLESTEROL 197 0 - 240 mg/dL TRIGLYCERIDES 120 30 - 160 mg/dL LDL 119 50 - 129 mg/dL Comment: LDL levels in terms of risk for coronary heart disease: <100 mg/dL: Optimal 100-129 mg/dL: Near or above optimal 130-159 mg/dL: Borderline high 160-189 mg/dL: High >190 mg/dL: Very High CARDIAC RISK RATIO 3.6 3.3 - 4.4 C [facility] Blood 02/07/2025 8:03 AM EDT 02/07/2025 8:05 AM EDT us Chayaorin Joe HOSPICE ADMINISTRATOR LAB BLOOD ORDERABLES Regina l Result Performing Organization Address City/[facility]/ZIP Co de Phone Number [address] [address] * Hepatitis C antibody, qualitative (06/30/2022 7:26 AM EDT) HCV NON-REACTIV E NON-REACTI VE Blood 06/30/2022 7:26 AM EDT 06/30/2022 7:32 AM EDT Chasidy Soto MD LAB BLOOD ORDERABLES Final R esult Performing Organization Address [facility] Co de Phone Number [address] [address] * COLONOSCOPY FOR RESULT ENTRY ONLY (07/15/2018) Historical Provider HEALTH MAINTENANCE Edited Result - Final from Last 3 Months or Most Recently Relevant to Health Maintenance Insurance [facility] [place] [id number] [facility] Advance Directives For more information, please contact: [phone] (9AM - 5PM [facility], Wednesday-Wednesday) * Full Code (Latest Code Status on File) Date Activated Date Inactivated Comments 03/18/2023 1:46 PM Question Answer Comments Code Status Confirmed With: Patient Care Teams Net Software Engineer Relationship Specialty Start Date End Date Nadira Diaz CNP [address] [place] [address], [address] [place] [address] [email or web address] PCP - General Adult Health 07/27/23 Reggie Mondragon MD [address] [place] [phone] [email or web address] Endocrinology 08/04/22 Nir Jade PA [address] [place] [address] [place] [address] [email or web address] 08/04/22 Reid Norris MD [address] [place] [address], [address] [place] [address] [email or web address] Family Medicine 07/27/23 Barry Murry OD [address] [place] [address] [email or web address] Optometry 02/07/24 Tommy Mar, DEBI [address] [facility] [address] [place] [address] 02/07/24 David Davis MD [address] [place] [address], [address] [place] [address] [email or web address] Obstetrics and Gynecology 02/07/24 Additional Source Comments The information contained in this document represents components of the legal health record. It is not the complete legal health record.[facility]
--- OUTSIDE RECORDS SUMMARY | 2025-09-03 15:56 | XMS_ITS | Encounter Summary ---
Author Organization [facility] Address [address] [place] [address] Phone Care Team Providers Care Lithograph Press Operator Tinware Name Role Phone Chasidy Soto MD Primary Care Provider [phone] Reggie Mondragon MD Unavailable [phone] Nir Jade Unavailable [phone] Chasidy Soto MD Unavailable [phone] Nadira Diaz CNP Primary Care Provider Reid Norris MD Unavailable Marija Taylor OD Unavailable Devaughn Canseco MD Unavailable Barry Murry OD Unavailable Tommy Mar APRN Unavailable [phone] David Davis MD Unavailable [phone] Reason for Referral * MRI/CAT Scan - Closed Specialty Diagnoses / Procedures Referred By Contac t Referred To Contact Radiology Diagnoses Cervical radiculopathy Procedures MRI Cervical Spine Chasidy Soto MD Phone: tel: [email or web address] Referral ID Status Reason Start Date Expiration Date Visits Re quested Visits Authorized [id number] Closed 01/25/2020 04/24/2020 1 1 Encounter Details Date Type Department Care Team (Late st Contact Info) Description 01/25/2020 Ancillary Orders Virtual Department [address] [place] [address] Chasidy Soto MD [address] [place] [address] [email or web address] Cervical radiculopathy Social History Tobacco Use Types Packs/Day Years [...] Encounters Date Type Department Care Team (Late Contact Info) Description 09/10/2025 8:30 AM EST Office Visit [address] [place] [address] Nadira Diaz, YOVANNY [address] [facility], [address] [place] [address] [email or web address] documented as of this encounter Results * MRI CERVICAL SPINE (BONE) WITHOUT CONTRAST (06/25/2020 8:18 AM EDT) Anatomical Region Laterality Modality C-spine Magnetic Resonan ce 06/25/2020 8:52 AM EDT Impressions 06/25/2020 9:01 AM EDT Disc spur complex causing cord impingement and central canal stenosis at the C5- 6 level. Small C6-7 disc protrusion. Multilevel neural foraminal narrowing as above which could be correlated with any associated clinical findings of radiculopathy. Prominent cyst versus nodule in the left thyroid lobe which the patient reports to the technologist is a known lesion, but should be correlated with any prior imaging studies or current clinical findings. POS - [id number] Narrative 06/25/2020 9:01 AM EDT TECHNIQUE: Exam performed on a 1.5 Luz high-field MRI scanner. Sagittal T1, T2 and STIR, axial T2* gradient echo and 3-D bright fluid sequences were obtained. FINDINGS: No comparison radiographs are available. Axial images are slightly degraded due to patient body habitus. C2-3: No focal disc protrusion, central canal stenosis, or significant neural foraminal compromise demonstrated. C3-4: Minimal right paramedian disc bulge without focal disc protrusion or central canal stenosis. Bilateral neural foraminal narrowing due to uncovertebral spurring and accentuated on the right due to disc bulge. C4-5: No focal disc protrusion or central canal stenosis. Uncovertebral spurring appears to cause minimal left and moderate right neural foraminal narrowing. C5-6: There is disc space narrowing, posterior spondylosis, and apparent superimposed hypointense disc bulge versus protrusion contacting the ventral margin of the cord and narrowing the AP dimensions of the patent canal to approximately 8 mm. Uncovertebral spurring causes advanced bilateral neural foraminal narrowing. C6-7: There is a small broad-based hypointense disc protrusion versus disc bulge elevating the posterior longitudinal ligament and apparently tracking slightly cephalad and caudal to the opposing vertebral body corners. This contacts the ventral margin of the cord but does not cause significant canal stenosis. Uncovertebral spurring appears to cause left neural foraminal narrowing. C7-T1: No focal disc protrusion, central canal stenosis, or advanced neural foraminal compromise. T1-2: No focal disc protrusion, central canal stenosis, or gross neural foraminal compromise. On the sagittal sequences no focal disc protrusion or central canal stenosis are demonstrated at the T2-3 or T3-4 levels. No significant abnormality of vertebral body marrow signal is noted. No discrete cord lesion apparent. No dorsal paraspinal soft tissue mass seen. There is an ill-defined T2 hyperintense lesion in the left thyroid lobe measuring approximately 3.8 cm in length and 2.0 cm in AP dimension. Prevertebral soft tissues are otherwise grossly unremarkable as are the visualized posterior fossa contents. Procedure Note Jean Marie Butler MD - 06/25/2020 TECHNIQUE: Exam performed on a 1.5 Luz high-field MRI scanner. SagittalT1, T2 and STIR, axial T2* gradient echo and 3-D bright fluid sequenceswere obtained. FINDINGS: No comparison radiographs are available. Axial images are slightlydegraded due to patient body habitus. C2-3: No focal disc protrusion, central canal stenosis, or significantneural foraminal compromise demonstrated. C3-4: Minimal right paramedian disc bulge without focal disc protrusion orcentral canal stenosis. Bilateral neural foraminal narrowing due touncovertebral spurring and accentuated on the right due to disc bulge. C4-5: No focal disc protrusion or central canal stenosis. Uncovertebralspurring appears to cause minimal left and moderate right neural foraminalnarrowing. C5-6: There is disc space narrowing, posterior spondylosis, and apparentsuperimposed hypointense disc bulge versus protrusion contacting theventral margin of the cord and narrowing the AP dimensions of the patentcanal to approximately 8 mm. Uncovertebral spurring causes advancedbilateral neural foraminal narrowing. C6-7: There is a small broad-based hypointense disc protrusion versus discbulge elevating the posterior longitudinal ligament and apparentlytracking slightly cephalad and caudal to the opposing vertebral bodycorners. This contacts the ventral margin of the cord but does not causesignificant canal stenosis. Uncovertebral spurring appears to cause leftneural foraminal narrowing. C7-T1: No focal disc protrusion, central canal stenosis, or advancedneural foraminal compromise. T1-2: No focal disc protrusion, central canal stenosis, or gross neuralforaminal compromise. On the sagittal sequences no focal disc protrusion or central canalstenosis are demonstrated at the T2-3 or T3-4 levels. No significantabnormality of vertebral body marrow signal is noted. No discrete cordlesion apparent. No dorsal paraspinal soft tissue mass seen. There is an ill-defined T2 hyperintense lesion in the left thyroid lobemeasuring approximately 3.8 cm in length and 2.0 cm in AP dimension.Prevertebral soft tissues are otherwise grossly unremarkable as are thevisualized posterior fossa contents. IMPRESSION: Disc spur complex causing cord impingement and central canal stenosis atthe C5-6 level. Small C6-7 disc protrusion. Multilevel neural foraminal narrowing as above which could be correlatedwith any associated clinical findings of radiculopathy. Prominent cyst versus nodule in the left thyroid lobe which the patientreports to the technologist is a known lesion, but should be correlatedwith any prior imaging studies or current clinical findings. POS - [id number] Chasidy Soto MD IMG MR XSPECIALTY Final Resu lt documented in this encounter Visit Diagnoses Diagnosis Cervical radiculopathy Brachial neuritis or radiculitis nos Cervical radiculopathy Brachial neuritis or radiculitis nos documented in this encounter Care Teams Lithograph Press Operator Tinware Relationship Specialty Start Date End Date Chasidy Soto MD [address] [place] [address] PCP - General Internal Medicine 05/23/18 07/26/23 Nadira Diaz CNP [address] [place] [address], [address] [place] [address] [email or web address] PCP - General Adult Health 07/27/23 Reggie Mondragon MD [address] [place] [phone] [email or web address] Endocrinology 08/04/22 Nir Jade PA [address] [place] [address] [place] [address] [email or web address] Surgery 08/04/22 Chasidy Soto MD [address] [place] [address] Insurance Assigned Provider 01/16/23 07/17/23 Reid Norris MD [address] [place] [address], [address] [place] [address] Family Medicine 07/27/23 Marija Taylor OD [address] [place] [address] Optometry 07/27/23 02/06/24 Devaughn Canseco MD [address] [place] [address], [place] [address] General Surgery 07/27/23 02/06/24 Barry Murry OD [address] [place] [address] Optometry 02/07/24 Tommy Mar APRN [address] [place] [address] [address] [place] [address] 02/07/24 David Davis MD [address] [place] [address] [address] [place] [address] Obstetrics and Gynecology 02/07/24 documented as of this encounter Additional Source Comments The information contained in this document represents components of the legal health record. It is not the complete legal health record.[facility]
--- OUTSIDE RECORDS SUMMARY | 2025-09-03 15:56 | XMS_ITS | Encounter Summary ---
Author Organization [facility] Address [address] [place] [address] Phone Care Team Providers Care Corporate Paralegal Name Role Phone Reggie Mondragon MD Unavailable [phone] Nir Jade PA Unavailable Nadira Diaz CNP Primary Care Provider [phone] Reid Norris MD Unavailable Marija Taylor OD Unavailable Devaughn Canseco MD Unavailable Barry Murry OD Unavailable Tommy Mar APRN Unavailable David Davis MD Unavailable [phone] Encounter Details Date Type Department Care Team (Late st Contact Info) Description 11/05/2023 Procedure [facility], [address] [address] Social History Tobacco Use Types Packs/Day Years Used Date Smoking Tobacco: Never Smokeless Tobacco: Never Alcohol Use Standard Drinks/Week Comments Not Currently 0 (1 standard drink = 0.6 oz pur e alcohol) 1-2x/month (2022) Child or Family Care Answer Date Record ed Do you have problems with on e of the following making it difficult for you to work, study, or receive health care? No 01/20/2023 Education Answer Date Recorded Are you interested in help w ith more adult education (for example, completing high school, GED, job training, learning the [place] language, technical skills, or developing parenting skills)? [...] 01/20/2023 Digital Access Answer Date Recorded No 2023 No 2023 Reliable internet access at home? Not on file 2023 Device with a working camera? Not on file Intimate Partner Violence Answer Date R ecorded Denied Basic Needs Not on file 07/27/2023 In the past 12 months have y ou been in a relationship with a person who hurts, threatens, or tries to control you? No 07/27/2023 Worried food would run out Not on file 07/27 In the past 12 months have y ou been in a relationship with a person who hurts, threatens, or tries to control you? No 07/27/2023 Comments No Sex and Gender Information Value [...] Description 09/10/2025 8:30 AM EST Office Visit [address] [place] [address] Nadira Diaz CNP [address] [facility], [address] [place] [address] [email or web address] documented as of this encounter Visit Diagnoses Not on filedocumented in this encounter Additional Health Concerns Assessment Noted Time PHQ-9 Depression Total Score: 2 07/27/20 7:18 AM EDT PHQ-2 Depression Total Score: 0 07/27/20 7:18 AM EDT documented as of this encounter Care Teams Corporate Paralegal Relationship Specialty Start Date End Date Nadira Diaz CNP [address] [place] [address], [address] [place] [address] [email or web address] PCP - General Adult Health 07/27/23 Reggie Mondragon MD [address] [place] [phone] [email or web address] Endocrinology 08/04/22 Nir Jade PA [address] [place] [address] [place] [address] [email or web address] 08/04/22 Reid Norirs MD [address] [place] [address], [address] [place] [address] [email or web address] Family Medicine 07/27/23 Marija Taylor OD [address] [place] [address] Optometry 07/27/23 02/06/24 Devaughn Canseco MD [address] [place] [address], [place] [address] General Surgery 07/27/23 02/06/24 Barry Murry OD [address] [place] [address] [email or web address] 02/07/24 Tommy Mar APRN [address] [place] [address] [address] [place] [address] 02/07/24 David Davis MD [address] [place] [address] [address] [place] [address] Obstetrics and Gynecology 02/07/24 documented as of this encounter Additional Source Comments The information contained in this document represents components of the legal health record. It is not the complete legal health record.[facility]
--- OUTSIDE RECORDS SUMMARY | 2025-09-03 15:56 | XMS_ITS | Encounter Summary ---
Author Organization [facility] Address [address] [place] [address] Phone Care Team Providers Care Virtual Classroom Manager Name Role Phone Chasidy Soto MD Primary Care Provider Reggie Mondragon MD Unavailable [phone] Nir Jade Unavailable Chasidy Soto MD Unavailable [phone] Nadira Diaz CNP Primary Care Provider [phone] Reid Norris MD Unavailable Marija Taylor OD Unavailable Devaughn Canseco MD Unavailable [phone] Barry Murry OD Unavailable Tommy Mar APRN Unavailable [phone] David Davis MD Unavailable [phone] Encounter Details Date Type Department Care Team (Latest Contact Info) Description 10/11/2018 Ancillary Orders Virtual Department [address] [place] [address] Levon Murphy MD [address] [place] [phone] [email or web address] Constipation, unspecified constipation type Social History Tobacco [...] Description 09/10/2025 8:30 AM EST Office Visit [facility] Medicine [address] [place] [address] Nadira Diaz CNP [address] [facility], [address] [place] [address] [email or web address] documented as of this encounter Visit Diagnoses Diagnosis Constipation, unspecified constipation type documented in this encounter Care Teams Virtual Classroom Manager Relationship Specialty Start Date End Date Chasidy Soto MD [address] [place] [address] PCP - General Internal Medicine 05/23/18 07/26/23 Nadira Diaz CNP [address] [place] [address], [address] [place] [address] [email or web address] PCP - General Adult Health 07/27/23 Reggie Mondragon MD [address] [place] [phone] [email or web address] Endocrinology 08/04/22 Nir Jade PA [address] [place] [address] [place] [address] [email or web address] Surgery 08/04/22 Chasidy Soto MD [address] [place] [address] Insurance Assigned Provider 01/16/23 07/17/23 Reid Norris MD [address] [place] [address], [address] [place] [address] Family Medicine 07/27/23 Marija Taylor OD [address] [place] [address] Optometry 07/27/23 02/06/24 Devaughn Canseco MD [address] [place] [address], [place] [address] General Surgery 07/27/23 02/06/24 Barry Murry OD [address] [place] [address] [email or web address] Optometry 02/07/24 Tommy Mar APRN [address] [place] [address] [address] [place] [address] 02/07/24 David Davis MD [address] [place] [address], [address] [place] [address] Obstetrics and Gynecology 02/07/24 documented as of this encounter Additional Source Comments The information contained in this document represents components of the legal health record. It is not the complete legal health record.[facility]
--- OUTSIDE RECORDS SUMMARY | 2025-09-03 15:56 | XMS_ITS | Encounter Summary ---
Author Organization [facility] Address [address] [place] [address] Phone Care Team Providers Care Automotive Quality Manager Name Role Phone Chasidy Soto MD Primary Care Provider Reggie Mondragon MD Unavailable Nir Jade Unavailable Chasidy Soto MD Unavailable Nadira Diaz CNP Primary Care Provider [phone] Reid Norris MD Unavailable [phone] Marija Taylor OD Unavailable Devaughn Canseco MD Unavailable Barry Murry OD Unavailable Tommy Mar APRN Unavailable [phone] David Davis MD Unavailable [phone] Encounter Details Date Type Department Care Team (Late st Contact Info) Description 03/26/2022 Procedure Pass [address] [address] Social History Tobacco Use Types Packs/Day Years Used Date Smoking Tobacco: Never Smokeless Tobacco: Never Alcohol Use Standard Drinks/Week Comments Yes 0 (1 standard drink = 0.6 oz pur e alcohol) social Comments No Sex and Gender Information Value [...] Description 09/10/2025 8:30 AM EST Office Visit [address] [place] [address] Nadira Diaz CNP 22 [facility], [address] [place] [address] [email or web address] documented as of this encounter Visit Diagnoses Not on filedocumented in this encounter Additional Health Concerns Assessment Noted Time PHQ-9 Depression Total Score: 14 022 10:53 AM EDT PHQ-2 Depression Total Score: 3 03/26/20 22 10:53 AM EDT documented as of this encounter Care Teams Automotive Quality Manager Relationship Specialty Start Date End Date Chasidy Soto MD [address] [place] [address] PCP - General Internal Medicine 05/23/18 07/26/23 Nadira Diaz CNP [address] [place] [address], [address] [place] [address] PCP - General Adult Health 07/27/23 Reggie Mondragon MD [address] [place] [phone] [email or web address] Endocrinology 08/04/22 Nir Jade PA [address] [place] [address] [place] [address] [email or web address] Surgery 08/04/22 Chasidy Soto MD 25 [place] [address] Insurance Assigned Provider 01/16/23 07/17/23 Reid Norris MD [address] [place] [address], [address] [place] [address] Family Medicine 07/27/23 Marija Taylor OD [address] [place] [address] Optometry 07/27/23 02/06/24 Devaughn Canseco MD [address] [place] [address], [place] [address] General Surgery 07/27/23 02/06/24 Barry Murry OD [address] [place] [address] [email or web address] Optometry 02/07/24 Tommy Mar APRN [address] [place] [address] [address] [place] [address] 02/07/24 David Davis MD [address] [place] [address], [address] [place] [address] Obstetrics and Gynecology 02/07/24 documented as of this encounter Additional Source Comments The information contained in this document represents components of the legal health record. It is not the complete legal health record.[facility]
--- OUTSIDE RECORDS SUMMARY | 2025-09-03 15:56 | XMS_ITS | Encounter Summary ---
Author Organization [facility] Address [address] [place] [address] Phone Care Team Providers Care Supervisor Policy Change Clerks Name Role Phone Chasidy Soto MD Primary Care Provider [phone] Reggie Mondragon MD Unavailable [phone] Nir Jade Unavailable Chasidy Soto MD Unavailable Nadira Diaz CNP Primary Care Provider [phone] Reid Norris MD Unavailable Marija Taylor OD Unavailable Devaughn Canseco MD Unavailable Barry Murry OD Unavailable Tommy Mar APRN Unavailable [phone] David Davis MD Unavailable [phone] Encounter Details Date Type Department Care Team (Late st Contact Info) Description 10/05/2018 Ancillary Orders Virtual Department 30 [place] [address] Chasidy Soto MD 25 [place] [address] Unspecified lump in the left breast, unspecified quadrant Social History Tobacco Use Types Packs/Day Years [...] Description 09/10/2025 8:30 AM EST Office Visit [facility] Family Medicine [address] [place] [address] Nadira Diaz CNP 22 [facility], [address] [place] [address] [email or web address] documented as of this encounter Visit Diagnoses Diagnosis Unspecified lump in the left breast, unspecified quadrant documented in this encounter Care Teams Supervisor Policy Change Clerks Relationship Specialty Start Date End Date Chasidy Soto MD [address] [place] [address] [email or web address] PCP - General Internal Medicine 05/23/18 07/26/23 Nadira Diaz CNP [address] [place] [address], [address] [place] [address] [email or web address] PCP - General Adult Health 07/27/23 Reggie Mondragon MD [address] [place] [phone] [email or web address] Endocrinology 08/04/22 Nir Jade PA [address] [place] [address] [place] [address] [email or web address] Surgery 08/04/22 Chasidy Soto MD [address] [place] [address] [email or web address] Insurance Assigned Provider 01/16/23 07/17/23 Reid Norris MD [address] [place] [address], [address] [place] [address] Family Medicine 07/27/23 Marija Taylor OD [address] [place] [address] Optometry 07/27/23 02/06/24 Devaughn Canseco MD [address] [place] [address], [place] [address] General Surgery 07/27/23 02/06/24 Barry Murry OD [address] [place] [address] m Optometry 02/07/24 Tommy Mar APRN [address] [place] [address] [address] [place] [address] 02/07/24 David Davis MD [address] [place] [address], [address] [place] [address] [email or web address] Obstetrics and Gynecology 02/07/24 documented as of this encounter Additional Source Comments The information contained in this document represents components of the legal health record. It is not the complete legal health record.[facility]
--- OUTSIDE RECORDS SUMMARY | 2025-09-03 15:56 | XMS_ITS | Encounter Summary ---
Author Organization [facility] Address [address] [place] [address] Phone Care Team Providers Care Patternmaker Hand Name Role Phone Chasidy Soto MD Primary Care Provider Reggie Mondragon MD Unavailable Nir Jade Unavailable [phone] Chasidy Soto MD Unavailable Nadira Diaz CNP Primary Care Provider [phone] Reid Norris MD Unavailable Marija Taylor OD Unavailable Devaughn Canseco MD Unavailable Barry Murry OD Unavailable Tommy Mar APRN Unavailable David Davis MD Unavailable [phone] Encounter Details Date Type Department Care Team (Latest Contact Info) Description 01/10/2019 Transcribe Orders [facility] Laboratory [address] [place], [place] [id number] Jean Marie Luther MD [address] [address] Reflux esophagitis (Primary Dx) Social History Tobacco Use Types Packs/Day Years [...] Description 09/10/2025 8:30 AM EST Office Visit [address] [place] [address] Nadira Diaz, YOVANNY 22 [facility], [address] [place] [address] [email or web address] documented as of this encounter Results * (ABNORMAL) CBC (01/10/2019 9:45 AM EST) WBC 8.04 3.40 - 11.20 K/uL [facility] RBC 4.70 3.80 - 4.80 M/uL [facility] HGB 11.3(L) 12.0 - 15.0 g/dL [facility] HCT 37.1 36.0 - 46.0 % [facility] PLT 322 130 - 400 K/uL [facility] MCV 78.9(L) 79.0 - 98.0 fL [facility] MCH 24.0(L) 27.0 - 34.8 pg [facility] MCHC 30.5(L) 31.5 - 36.0 g/dL [facility] RDW 17.0(H) 10.8 - 14.6 % [facility] MPV 10.5 9.4 - 12.4 [facility] NRBC 0.00 0.00 /100 WBCs [facility] ABSOLUTE NRBC 0.00 0.00 K/uL [facility] Blood 01/10/2019 9:45 AM EST 01/10/2019 9:59 AM EST us Jean Marie Luther MD LAB BLOOD ORDERABLES Final Res ult [address] [address] * (ABNORMAL) Ferritin (01/10/2019 9:45 AM EST) FERRITIN 10(L) 13 - 150 ug/L [facility] Blood 01/10/2019 9:45 AM EST 01/10/2019 9:59 AM EST us Jean Marie Luther MD LAB BLOOD ORDERABLES Final Res ult [address] [address] documented in this encounter Visit Diagnoses Diagnosis Reflux esophagitis- Primary documented in this encounter Care Teams Patternmaker Hand Relationship Specialty Start Date End Date Chasidy Soto MD [address] [place] [address] PCP - General Internal Medicine 05/23/18 07/26/23 Nadira Diaz CNP 22 [facility], [address] [place] [address] [email or web address] PCP - General Adult Health 07/27/23 Reggie Mondragon MD [address] [place] [phone] [email or web address] Endocrinology 08/04/22 Nir Jade PA [address] [place] [address] [place] [address] [email or web address] Surgery 08/04/22 Chasidy Soto MD [address] [place] [address] Insurance Assigned Provider 01/16/23 07/17/23 Reid Norris MD 22 [facility], [address] [place] [address] Family Medicine 07/27/23 Marija Taylor OD [address] [place] [address] Optometry 07/27/23 02/06/24 Devaughn Canseco MD [address] [place] [address], [place] [address] General Surgery 07/27/23 02/06/24 Barry Murry OD [address] [place] [address] [email or web address] Optometry 02/07/24 Tommy Mar APRN [address] [place] [address] [address] [place] [address] 02/07/24 David Davis MD [address] [place] [address], [address] [place] [address] [email or web address] Obstetrics and Gynecology 02/07/24 documented as of this encounter Additional Source Comments The information contained in this document represents components of the legal health record. It is not the complete legal health record.[facility]
--- OUTSIDE RECORDS SUMMARY | 2025-09-03 15:56 | XMS_ITS | Encounter Summary ---
Author Organization [facility] Address [address] [place] [address] Phone Care Team Providers Care Corporate Compliance Manager Name Role Phone Chasidy Soto MD Primary Care Provider Reggie Mondragon MD Unavailable [phone] Nir Jade Unavailable [phone] Chasidy Soto MD Unavailable Nadira Diaz CNP Primary Care Provider [phone] Reid Norris MD Unavailable Marija Taylor OD Unavailable Devaughn Canseco MD Unavailable Barry Murry OD Unavailable Tommy Mar APRN Unavailable [phone] David Davis MD Unavailable [phone] Encounter Details Date Type Department Care Team (Late st Contact Info) Description 07/03/2022 Procedure Pass [facility], [address] [address] Social History Tobacco Use Types Packs/Day Years Used Date Smoking Tobacco: Never Smokeless Tobacco: Never Alcohol Use Standard Drinks/Week Comments Yes 0 (1 standard drink = 0.6 oz pure alcohol) social, couple times a year maybe Comments No Sex and Gender Information Value [...] Description 09/10/2025 8:30 AM EST Office Visit [facility] Medicine [address] [place] [address] Nadira Diaz CNP 22 [facility], [address] [place] [address] [email or web address] documented as of this encounter Visit Diagnoses Not on filedocumented in this encounter Additional Health Concerns Assessment Noted Time PHQ-9 Depression Total Score: 8 07/03/20 22 6:58 AM EDT PHQ-2 Depression Total Score: 2 07/03/20 22 6:58 AM EDT documented as of this encounter Care Teams Corporate Compliance Manager Relationship Specialty Start Date End Date Chasidy Soto MD [address] [place] [address] PCP - General Internal Medicine 05/23/18 07/26/23 Nadira Diaz CNP [address] [place] [address], [address] [place] [address] PCP - General Adult Health 07/27/23 Reggie Mondragon MD [address] [place] [phone] [email or web address] Endocrinology 08/04/22 Nir Jade PA [address] [place] [address] [place] [address] [email or web address] Surgery 08/04/22 Chasidy Soto MD 25 [place] [address] Insurance Assigned Provider 01/16/23 07/17/23 Reid Norris MD [address] [place] [address], [address] [place] [address] Family Medicine 07/27/23 Marija Taylor OD [address] [place] [address] Optometry 07/27/23 02/06/24 Devaughn Canseco MD [address] [place] [address], [place] [phone] General Surgery 07/27/23 02/06/24 Barry Murry OD [address] [place] [address] [email or web address] Optometry 02/07/24 Tommy Mar APRN [address] [place] [address] [address] [place] [address] 02/07/24 David Davis MD [address] [place] [address], [address] [place] [address] Obstetrics and Gynecology 02/07/24 documented as of this encounter Additional Source Comments The information contained in this document represents components of the legal health record. It is not the complete legal health record.[facility]
--- OUTSIDE RECORDS SUMMARY | 2025-09-03 15:56 | XMS_ITS | Encounter Summary ---
Author Organization [facility] Address [address] [place] [address] Phone Care Team Providers Care Pitching Coach Name Role Phone Farhana Murray MD Primary Care Provider mma Chasidy Soto MD Primary Care Provider Reggie Mondragon MD Unavailable Nir Jade Unavailable Chasidy Soto MD Unavailable [phone] Nadira Diaz CNP Primary Care Provider [phone] Reid Norris MD Unavailable Marija Taylor OD Unavailable Devaughn Canseco MD Unavailable [phone] Barry Murry OD Unavailable Tommy Mar APRN Unavailable [phone] David Davis MD Unavailable Encounter Details Date Type Department Care Team (Late st Contact Info) Description 05/17/2018 Ancillary Orders Virtual Department 30 [place] [address] Chasidy Soto MD 25 [place] [address] [email or web address] Breast screening Social History Tobacco Use Types Packs/Day Years [...] Description 09/10/2025 8:30 AM EST Office Visit [facility] Medicine [address] [place] [address] Nadira Diaz, YOVANNY 22 [facility], [address] [place] [address] [email or web address] documented as of this encounter Results * BI MAMMOGRAM SCREENING WITH TOMOSYNTHESIS WITH CAD (BILATERAL) (07/06/2018 8:18 AM EDT) Anatomical Region Laterality Modality Breast Left, Breast Right, Breast Bilateral Bila teral Mammography 07/06/2018 9:46 AM EDT Impressions 07/06/2018 9:48 AM EDT No mammographic evidence of malignancy. RECOMMENDED FOLLOWUP: Routine screening mammography is recommended, as clinically appropriate. The results will be sent to the patient. BI-RADS CATEGORY: 1 - Negative. BREAST DENSITY: The breast tissue is almost entirely fat. POS - [id number] Narrative 07/06/2018 9:48 AM EDT BI MAMMOGRAM SCREENING WITH TOMOSYNTHESIS WITH CAD (BILATERAL), HISTORY: Screening. Mother with history of breast cancer diagnosed at age 38. COMPARISON: Prior studies dating back to 2006, most recently 09/13/2015. TECHNIQUE: Digital breast tomosynthesis was performed in craniocaudal and mediolateral oblique projections. Reconstructed screening 2-D views were generated from the tomosynthesis images. Images were interpreted in conjunction with R-2 Image Meat Team Member computer-aided detection. FINDINGS: Breast density: The breasts are nearly entirely fatty replaced. There are no suspicious masses, suspicious areas of architectural distortion or suspicious clusters of microcalcifications. Procedure Note Nidhi Chandler MD - 07/06/2018 BI MAMMOGRAM SCREENING WITH TOMOSYNTHESIS WITH CAD (BILATERAL), HISTORY: Screening. Mother with history of breast cancer diagnosed at age38. COMPARISON: Prior studies dating back to 2006, most recently 09/13/2015. TECHNIQUE: Digital breast tomosynthesis was performed in craniocaudal andmediolateral oblique projections. Reconstructed screening 2-D views weregenerated from the tomosynthesis images. Images were interpreted inconjunction with R-2 Image Meat Team Member computer-aided detection. FINDINGS: Breast density: The breasts are nearly entirely fatty replaced. There are no suspicious masses, suspicious areas of architecturaldistortion or suspicious clusters of microcalcifications. IMPRESSION: No mammographic evidence of malignancy. RECOMMENDED FOLLOWUP: Routine screening mammography is recommended, asclinically appropriate. The results will be sent to the patient. BI-RADS CATEGORY: 1 - Negative. BREAST DENSITY: The breast tissue is almost entirely fat. POS - [id number] us Chasidy Soto MD IMG MG EXAMS Final Result documented in this encounter Visit Diagnoses Diagnosis Breast screening Breast screening, unspecified Breast screening Breast screening, unspecified documented in this encounter Care Teams Pitching Coach Relationship Specialty Start Date End Date Farhana Murray MD [email or web address] PCP - General 08/24/17 05/22/18 Chasidy Soto MD [address] [place] [address] [email or web address] PCP - General Internal Medicine 05/23/18 07/26/23 Nadira Diaz CNP [address] [place] [address], [address] [place], [place] [phone] PCP - General Adult Health 07/27/23 Reggie Mondragon MD [address] [place] [phone] [email or web address] 08/04/22 Nir Jade PA [address] [place] [address] Orthopedic [place] [address] [email or web address] 08/04/22 Chasidy Soto MD [address] [place] [address] Insurance Assigned Provider 01/16/23 07/17/23 Reid Norris MD [address] [place] [address], [address] [place] [address] [email or web address] Family Medicine 07/27/23 Marija Taylor OD [address] [place] [address] Optometry 07/27/23 02/06/24 Devaughn Canseco MD [address] [place] [address], [facility] [place] [address] General Surgery 07/27/23 02/06/24 Barry Murry OD [address] [place] [address] m Optometry 02/07/24 Tommy Mar APRN [address] [place] [address] [address] [place] [address] 02/07/24 David Davis MD [address] [place] [address], [address] [place] [address] [email or web address] Obstetrics and Gynecology 02/07/24 documented as of this encounter Additional Source Comments The information contained in this document represents components of the legal health record. It is not the complete legal health record.[facility]
--- OUTSIDE RECORDS SUMMARY | 2025-09-03 15:56 | XMS_ITS | Encounter Summary ---
Author Organization [facility] Address [address] [place] [address] Phone Care Team Providers Care Geologic Technician Name Role Phone Chasidy Soto MD Primary Care Provider [phone] Reggie Mondragon MD Unavailable Nir Jade Unavailable [phone] Chasidy Soto MD Unavailable Nadira Diaz CNP Primary Care Provider [phone] Reid Norris MD Unavailable Marija Taylor OD Unavailable Devaughn Canseco MD Unavailable Barry Murry OD Unavailable Tommy Mar APRN Unavailable [phone] David Davis MD Unavailable [phone] Reason for Referral * MRI/CAT Scan - Closed Specialty Diagnoses / Procedures Referred By Contac t Referred To Contact Radiology Diagnoses Spinal stenosis, lumbar region, with neurogenic claudication Procedures MRI Lumbar Spine Nir Jade PA Phone: tel: fax: [email or web address] Referral ID Status Reason Start Date Expiration Date Visits Re quested Visits Authorized [id number] Closed 07/17/2020 10/15/2020 1 1 Encounter Details Date Type Department Care Team (Latest Contact Info) Description 07/23/2020 Ancillary Orders Virtual Department 30 [place] [address] Nir Jade PA [address] [place] [address] [email or web address] Spinal stenosis, lumbar region, with neurogenic claudication Social History Tobacco Use Types Packs/Day Years [...] Description 09/10/2025 8:30 AM EST Office Visit [address] [address] Nadira Diaz, POLITICAL SCIENCE INSTRUCTOR 22 [facility], [address] [place] [address] documented as of this encounter Results * MRI LUMBAR SPINE (NEURO) WITHOUT CONTRAST (07/31/2020 5:39 PM EDT) Anatomical Region Laterality Modality L-spine Magnetic Resonan ce 07/31/2020 5:56 PM EDT Impressions 07/31/2020 6:50 PM EDT Multilevel degenerative changes as described above. Mild degree of neural foramina stenosis at multiple levels. No significant canal stenosis in the lumbar spine. Narrative 07/31/2020 6:50 PM EDT EXAM: MRI LUMBAR SPINE (NEURO) WITHOUT CONTRAST COMPARISON: None HISTORY according to studies notes from technologist: Low back pain chronically and left hand fall asleep. No trauma. TECHNIQUE: Exam performed on a 1.5 Luz high-field MRI scanner. Magnetic resonance imaging of the lumbar spine was performed WITHOUT injected contrast using standard department protocols. FINDINGS: ALIGNMENT: Anatomic alignment is maintained. No anterior or posterior subluxations. VERTEBRAL BODIES: Vertebral body heights are maintained. Bone marrow signal pattern is within normal limits. T1 and T2 hyperintense signal of L1 vertebral body with signal suppressed on the STIR sequence appears to represent fat-containing hemangioma. INTERVERTEBRAL DISCS: Desiccation changes of multiple discs from L1 through S1. Loss of disc height is more prominent at L4-L5, followed by L1-L2 and L3-L4 discs. SPINAL CORD/CONUS: Included spinal cord has normal caliber and signal characteristics. The conus terminates normally at L1. Level by level analysis yields the following: T12-L1: Mild bulging disc. No significant canal or neuroforaminal stenosis. L1-2: Prominent bulging disc contributes to mild bilateral neuroforaminal stenosis. No significant canal stenosis. L2-3: Minimal bulging disc. No significant canal or neuroforaminal stenosis. L3-4: Mild bulging disc eccentric to the right side contributes to mild right neuroforaminal stenosis. No significant canal or left neuroforaminal stenosis. L4-5: Prominent bulging disc contributes to mild bilateral neuroforaminal stenosis. No significant canal stenosis. L5-S1: Mild bulging disc with probable superimposed left extraforaminal disc protrusion. No significant canal or neuroforaminal stenosis. OTHERS:Visualized portions of the retroperitoneal structures are grossly unremarkable. Posterior paraspinal soft tissues are unremarkable. Procedure Note Sharmaine Lynch MD - 07/31/2020 EXAM: MRI LUMBAR SPINE (NEURO) WITHOUT CONTRAST COMPARISON: None HISTORY according to studies notes from technologist: Low back painchronically and left hand fall asleep. No trauma. TECHNIQUE: Exam performed on a 1.5 Luz high-field MRI scanner. Magneticresonance imaging of the lumbar spine was performed WITHOUT injectedcontrast using standard department protocols. FINDINGS: ALIGNMENT: Anatomic alignment is maintained. No anterior or posteriorsubluxations. VERTEBRAL BODIES: Vertebral body heights are maintained. Bone marrowsignal pattern is within normal limits. T1 and T2 hyperintense signal ofL1 vertebral body with signal suppressed on the STIR sequence appears torepresent fat-containing hemangioma. INTERVERTEBRAL DISCS: Desiccation changes of multiple discs from [id number] S1. Loss of disc height is more prominent at L4-L5, followed byL1-L2 and L3-L4 discs. SPINAL CORD/CONUS: Included spinal cord has normal caliber and signalcharacteristics. The conus terminates normally at L1. Level by level analysis yields the following: T12-L1: Mild bulging disc. No significant canal or neuroforaminalstenosis. L1-2: Prominent bulging disc contributes to mild bilateral neuroforaminalstenosis. No significant canal stenosis. L2-3: Minimal bulging disc. No significant canal or neuroforaminalstenosis. L3-4: Mild bulging disc eccentric to the right side contributes to mildright neuroforaminal stenosis. No significant canal or left neuroforaminalstenosis. L4-5: Prominent bulging disc contributes to mild bilateral neuroforaminalstenosis. No significant canal stenosis. L5-S1: Mild bulging disc with probable superimposed left extraforaminaldisc protrusion. No significant canal or neuroforaminal stenosis. OTHERS:Visualized portions of the retroperitoneal structures are grosslyunremarkable. Posterior paraspinal soft tissues are unremarkable. IMPRESSION: Multilevel degenerative changes as described above. Mild degree of neuralforamina stenosis at multiple levels. No significant canal stenosis in thelumbar spine. Nir [facility] [place] X[place] Final Res ult documented in this encounter Visit Diagnoses Diagnosis Spinal stenosis, lumbar region, with neurogenic claudication Spinal stenosis, lumbar region, with neurogenic claudication documented in this encounter Care Teams Geologic Technician Relationship Specialty Start Date End Date Chasidy Soto MD [address] [place] [address] [email or web address] PCP - General Internal Medicine 05/23/18 07/26/23 Nadira Diaz CNP [address] [place] [address], [address] [place] [address] PCP - General Adult Health 07/27/23 Reggie Mondragon MD [address] [place] [phone] [email or web address] Endocrinology 08/04/22 Nir Jade PA [address] [place] [address] [place] [address] [email or web address] Surgery 08/04/22 Chasidy Soto MD [address] [place] [address] Insurance Assigned Provider 01/16/23 07/17/23 Reid Norris MD [address] [place] [address], [address] [place] [address] [email or web address] Family Medicine 07/27/23 Marija Taylor OD [address] [place] [address] Optometry 07/27/23 02/06/24 Devaughn Canseco MD [address] [place] [address], [place] [address] General Surgery 07/27/23 02/06/24 Barry Murry OD [address] [place] [address] m Optometry 02/07/24 Tommy Mar APRN [address] [place] [address] [address] [place] [address] 02/07/24 David Davis MD [address] [place] [address], [place] [address] [email or web address] Obstetrics and Gynecology 02/07/24 documented as of this encounter Additional Source Comments The information contained in this document represents components of the legal health record. It is not the complete legal health record.[facility]
--- OUTSIDE RECORDS SUMMARY | 2025-09-03 15:56 | XMS_ITS | Encounter Summary ---
Author Organization [facility] Address [address] [place] [address] Phone Care Team Providers Care Accounts Payable Coordinator Name Role Phone Chasidy Soto MD Primary Care Provider Reggie Mondragon MD Unavailable Nir Jade Unavailable [phone] Chasidy Soto MD Unavailable [phone] Nadira Diaz CNP Primary Care Provider [phone] Reid Norris MD Unavailable Marija Taylor OD Unavailable Devaughn Canseco MD Unavailable Barry Murry OD Unavailable Tommy Mar APRN Unavailable David Davis MD Unavailable Encounter Details Date Type Department Care Team (Late st Contact Info) Description 01/25/2020 Procedure Pass [facility], [facility] - [address] [place] [address] Social History Tobacco Use Types Packs/Day Years [...] Description 09/10/2025 8:30 AM EST Office Visit [address] [address] Nadira Diaz CNP [address] [place] [address], [address] [place] [address] documented as of this encounter Visit Diagnoses Not on filedocumented in this encounter Care Teams Accounts Payable Coordinator Relationship Specialty Start Date End Date Chasidy Soto MD [address] [place] [address] PCP - General Internal Medicine 05/23/18 07/26/23 Nadira Diaz CNP [address] [place] [address], [address] [place] [address] PCP - General Adult Health 07/27/23 Reggie Mondragon MD [address] [place] [phone] [email or web address] Endocrinology 08/04/22 Nir Jade PA [address] [place] [address] [place] [address] [email or web address] Surgery 08/04/22 Chasidy Soto MD [address] [place] [address] Insurance Assigned Provider 01/16/23 07/17/23 Reid Norris MD [address] [place] [address], [address] [place] [address] Family Medicine 07/27/23 Millie TayloraFRANCISCO [address] [place] [address] Optometry 07/27/23 02/06/24 Devaughn Canseco MD [address] [place] [address], [place] [address] General Surgery 07/27/23 02/06/24 Barry Murry OD [address] [place] [phone] [email or web address] 02/07/24 Tommy Mar, DEBI [address] [place] [address] [address] [place] [address] 02/07/24 David Davis MD [address] [place] [address], [address] [place] [address] Obstetrics and Gynecology 02/07/24 documented as of this encounter Additional Source Comments The information contained in this document represents components of the legal health record. It is not the complete legal health record.[facility]
--- OUTSIDE RECORDS SUMMARY | 2025-09-03 15:57 | XMS_ITS | Encounter Summary ---
Author Organization [facility] Address [address] [place] [address] Phone Care Team Providers Care Assignment Officer Name Role Phone Chasidy Soto MD Primary Care Provider Reggie Mondragon MD Unavailable Nir Jade Unavailable Chasidy Soto MD Unavailable Nadira Diaz CNP Primary Care Provider [phone] Reid Norris MD Unavailable [phone] Marija Taylor OD Unavailable Devaughn Canseco MD Unavailable [phone] Barry Murry OD Unavailable Tommy Mar APRN Unavailable [phone] David Davis MD Unavailable [phone] Encounter Details Date Type Department Care Team (Late st Contact Info) Description 01/14/2021 Transcribe Orders Virtual Department 30 [place] [address] Chasidy Soto MD 25 [place] [address] Benign lipomatous neoplasm of skin, subcu of right leg (Primary Dx) Social History Tobacco Use Types Packs/Day Years Used Date Smoking Tobacco: Never Assessed Comments No Sex and Gender Information Value [...] 09/10/2025 8:30 AM EST Office Visit [facility] [address] [place] [address] Nadira Diaz, YOVANNY 22 [facility], [address] [place] [address] [email or web address] documented as of this encounter Results * US LOWER EXTREMITY NON-VASCULAR LIMITED (RIGHT) (02/05/2021 11:33 AM EDT) Anatomical Region Laterality Modality Hip Right, Thigh Right, Knee Right, Leg Right, Ankle Right, Foot Right Ultrasound 02/05/2021 11:3 7 AM EDT Impressions 02/05/2021 11:38 AM EDT Abundant right knee fatty/adipose tissue without discrete mass identified. Further imaging evaluation should be based on clinical concern. Narrative 02/05/2021 11:38 AM EDT HISTORY: As above. COMPARISON: None. LIMITED SOFT TISSUE ULTRASOUND FINDINGS: Imaging obtained of the inferior medial right knee at the site of the palpable abnormality. There is abundant fatty/adipose tissue. No discrete mass identified. Procedure Note Sergio Butler MD - 02/05/2021 HISTORY: As above. COMPARISON: None. LIMITED SOFT TISSUE ULTRASOUND FINDINGS: Imaging obtained of the inferior medial right knee at the site of thepalpable abnormality. There is abundant fatty/adipose tissue. No discrete mass identified. IMPRESSION: Abundant right knee fatty/adipose tissue without discrete mass identified.Further imaging evaluation should be based on clinical concern. us Chasidy Soto MD IMG US EXTREMITY Final Resul t documented in this encounter Visit Diagnoses Diagnosis Benign lipomatous neoplasm of skin, subcu of right leg- Primary Benign lipomatous neoplasm of skin, subcu of right leg documented in this encounter Care Teams Assignment Officer Relationship Specialty Start Date End Date Chasidy Soto MD [address] [place] [address] PCP - General Internal Medicine 05/23/18 07/26/23 Nadira Diaz CNP [address] [place] [address], [address] [place] [address] PCP - General Adult Health 07/27/23 Reggie Mondragon MD [address] [place] [phone] [email or web address] Endocrinology 08/04/22 Nir Jade PA [address] [place] [address] [place] [address] [email or web address] Surgery 08/04/22 Chasidy Soto MD [address] [place] [address] Insurance Assigned Provider 01/16/23 07/17/23 Reid Norris MD [address] [place] [address], [address] [place] [address] Family Medicine 07/27/23 Marija Taylor OD [address] [place] [address] Optometry 07/27/23 02/06/24 Devaughn Canseco MD [address] [place] [address], [place] [address] General Surgery 07/27/23 02/06/24 Barry Murry OD [address] [place] [phone] [email or web address] 02/07/24 Tommy Mar APRN [address] [place] [address] 203 [place] [address] 02/07/24 David Davis MD [address] [place] [address] [address] [place] [address] Obstetrics and Gynecology 02/07/24 documented as of this encounter Additional Source Comments The information contained in this document represents components of the legal health record. It is not the complete legal health record.[facility]
--- OUTSIDE RECORDS SUMMARY | 2025-09-03 15:57 | XMS_ITS | Encounter Summary ---
Author Organization [facility] Address [address] [place] [address] Phone Care Team Providers Care Weigher And Grader Name Role Phone Chasidy Soto MD Primary Care Provider Reggie Mondragon MD Unavailable Nir Jade Unavailable Chasidy Soto MD Unavailable [phone] Nadira Diaz CNP Primary Care Provider [phone] Reid Norris MD Unavailable Marija Taylor OD Unavailable Devaughn Canseco MD Unavailable Barry Murry OD Unavailable Tommy Mar APRN Unavailable [phone] David Davis MD Unavailable [phone] Encounter Details Date Type Department Care Team (Late st Contact Info) Description 06/28/2020 Transcribe Orders Virtual Department 30 [place] [address] Chasidy Soto MD [address] [place] [address] Dysphagia, unspecified type (Primary Dx) Social History Tobacco Use Types [...] 09/10/2025 8:30 AM EST Office Visit [facility] [address] [place] [address] Nadira Diaz, YOVANNY 22 [facility], [address] [place] [address] [email or web address] documented as of this encounter Results * FL BARIUM SWALLOW ESOPHAGRAM DOUBLE CONTRAST (07/09/2020 8:23 AM EDT) Anatomical Region Laterality Modality Chest Computed Radiogr aphy 07/09/2020 8:43 AM EDT Impressions 07/09/2020 8:46 AM EDT Large sliding-type hiatal hernia with spontaneous gastroesophageal reflux and prominent transverse folds which could reflect low-grade esophagitis. Mild esophageal tertiary contractions without hypopharyngeal dysmotility apparent. FLUOROSCOPY TIME: 1 min. 7 sec; 91 IMAGES/FRAMES POS - [id number] Narrative 07/09/2020 8:46 AM EDT COMPARISON: None FINDINGS: A preliminary lateral view of the neck reveals degenerative disc changes at the C5-6 level small ventral osteophytes present. A standard double contrast study was performed and recorded on digital rapid sequence, spot, and overhead views. Following ingestion of the contrast mixture deglutition was assessed fluoroscopically. No aspiration or cricopharyngeal achalasia were demonstrated. No nasopharyngeal reflux. There is a large sliding-type hiatal hernia with a few tertiary contractions present in the distal thoracic esophagus. Spontaneous reflux to the level of the thoracic inlet was noted during the course of the examination with prominent transverse folds seen in the thoracic esophagus but without mucosal ulcerations or fixed strictures apparent. Procedure Note Jean Marie Butler MD - 07/09/2020 COMPARISON: None FINDINGS: A preliminary lateral view of the neck reveals degenerative disc changesat the C5-6 level small ventral osteophytes present. A standard doublecontrast study was performed and recorded on digital rapid sequence, spot,and overhead views. Following ingestion of the contrast mixture deglutition was assessedfluoroscopically. No aspiration or cricopharyngeal achalasia weredemonstrated. No nasopharyngeal reflux. There is a large sliding-typehiatal hernia with a few tertiary contractions present in the distalthoracic esophagus. Spontaneous reflux to the level of the thoracic inletwas noted during the course of the examination with prominent transversefolds seen in the thoracic esophagus but without mucosal ulcerations orfixed strictures apparent. IMPRESSION: Large sliding-type hiatal hernia with spontaneous gastroesophageal refluxand prominent transverse folds which could reflect low-grade esophagitis.Mild esophageal tertiary contractions without hypopharyngeal dysmotilityapparent. FLUOROSCOPY TIME: 1 min. 7 sec; 91 IMAGES/FRAMES POS - [id number] Chasidy Soto MD IM FL MISC Final Result documented in this encounter Visit Diagnoses Diagnosis Dysphagia, unspecified type- Primary Dysphagia, unspecified type documented in this encounter Care Teams Weigher And Grader Relationship Specialty Start Date End Date Chasidy Soto MD [address] [place] [address] PCP - General Internal Medicine 05/23/18 07/26/23 Nadira Diaz CNP [address] [place] [address], [address] [place] [address] PCP - General Adult Health 07/27/23 Reggie Mondragon MD [address] [place] [phone] [email or web address] Endocrinology 08/04/22 Nir Jade PA [address] [place] [address] [place] [address] [email or web address] Surgery 08/04/22 Chasidy Soto MD [address] [place] [address] [email or web address] Insurance Assigned Provider 01/16/23 07/17/23 Reid Norris MD [address] [place] [address], [address] [place] [address] Family Medicine 07/27/23 Marija Taylor OD [address] [place] [address] Optometry 07/27/23 02/06/24 Devaughn Canseco MD [address] [place] [address], [place] [address] General Surgery 07/27/23 02/06/24 Barry Murry OD [address] [place] [address] [email or web address] Optometry 02/07/24 Tommy Mar APRN [address] [place] [address] [address] [place] [address] 02/07/24 David Davis MD [address] [place] [address], [address] [place] [address] Obstetrics and Gynecology 02/07/24 documented as of this encounter Additional Source Comments The information contained in this document represents components of the legal health record. It is not the complete legal health record.[facility]
--- OUTSIDE RECORDS SUMMARY | 2025-09-03 15:57 | XMS_ITS | Encounter Summary ---
Author Organization [facility] Address [address] [place] [address] Phone Care Team Providers Care Logistics Planning Manager Name Role Phone Chasidy Soto MD Primary Care Provider Reggie Mondragon MD Unavailable Nir Jade Unavailable Chasidy Soto MD Unavailable Nadira Diaz CNP Primary Care Provider [phone] Reid Norris MD Unavailable [phone] Marija Taylor OD Unavailable Devaughn Canseco MD Unavailable Barry Murry OD Unavailable Tommy Mar APRN Unavailable David Davis MD Unavailable Encounter Details Date Type Department Care Team (Latest Contact Info) Description 09/06/2020 Transcribe Orders Virtual Department 30 [place] [address] Jena Marie Luther MD [address] [place] [phone] [email or web address] Pre-operative laboratory examination (Primary Dx) Social History Tobacco Use Types [...] Description 09/10/2025 8:30 AM EST Office Visit [facility] [address] [place] [address] Nadira Diaz CNP 22 [facility], [address] [place] [address] [email or web address] documented as of this encounter Visit Diagnoses Diagnosis Pre-operative laboratory examination- Primary Pre-procedural laboratory examination documented in this encounter Care Teams Logistics Planning Manager Relationship Specialty Start Date End Date Chasidy Soto MD [address] [place] [address] [email or web address] PCP - General Internal Medicine 05/23/18 07/26/23 Nadira Diaz CNP [address] [place] [address], [address] [place] [address] [email or web address] PCP - General Adult Health 07/27/23 Reggie Mondragon MD [address] [place] [phone] [email or web address] Endocrinology 08/04/22 Nir Jade PA [address] [place] [address] [place] [address] [email or web address] Surgery 08/04/22 Chasidy Soto MD [address] [place] [address] Insurance Assigned Provider 01/16/23 07/17/23 Reid Norris MD [address] [place] [address], [address] [place] [address] Family Medicine 07/27/23 Marija Taylor OD [address] [place] [address] Optometry 07/27/23 02/06/24 Devaughn Canseco MD [address] [place] [address], [place] [address] General Surgery 07/27/23 02/06/24 Barry Murry OD [address] [place] [address] [email or web address] Optometry 02/07/24 Tommy Mar APRN [address] [place] [address] [address] [place] [address] 02/07/24 David Davis MD [address] [place] [address], [address] [place] [address] Obstetrics and Gynecology 02/07/24 documented as of this encounter Additional Source Comments The information contained in this document represents components of the legal health record. It is not the complete legal health record.[facility]
--- OUTSIDE RECORDS SUMMARY | 2025-09-03 15:57 | XMS_ITS | Encounter Summary ---
Author Organization [facility] Address [address] [place] [address] Phone Care Team Providers Care Control Valve Mechanic Name Role Phone Chasidy Soto MD Primary Care Provider Reggie Mondragon MD Unavailable Nir Jade Unavailable [phone] Chasidy Soto MD Unavailable Nadira Diaz CNP Primary Care Provider [phone] Reid Norris MD Unavailable Marija Taylor OD Unavailable Devaughn Canseco MD Unavailable Barry Murry OD Unavailable Tommy Mar APRN Unavailable [phone] David Davis MD Unavailable [phone] Encounter Details Date Type Department Care Team (Latest Contact Info) Description 07/23/2021 Transcribe Orders Virtual Department 30 [place] [address] Chasidy Soto MD 25 [place] [address] Generalized hyperhidrosis (Primary Dx) Social History Tobacco Use Types [...] Description 09/10/2025 8:30 AM EST Office Visit [facility] [address] [place] [address] Nadira Diaz, YOVANNY 22 [facility], [address] [place] [address] [email or web address] documented as of this encounter Results * XR CHEST PA AND LATERAL 2 VIEWS (08/12/2021 8:17 AM EDT) Anatomical Region Laterality Modality Chest Computed Radiogr aphy 08/12/2021 8:56 AM EDT Impressions 08/12/2021 8:57 AM EDT Enlarging hiatal hernia. Probable lingular scarring. No acute infiltrates. Narrative 08/12/2021 8:57 AM EDT PA and lateral views the chest obtained. Comparison made to prior of May 07, 2014, the most recent available. There is a hiatal hernia which appears larger than on prior study but was present previously. Heart not enlarged. No infiltrates or effusions. Scarring again noted along the anterior chest on lateral view and by the left hilum on the PA view. There is been interval cervical fusion. No compression deformity seen. Procedure Note Chace He MD - 08/12/2021 PA and lateral views the chest obtained. Comparison made to prior of 2013, the most recent available. There is a hiatal hernia whichappears larger than on prior study but was present previously. Heart notenlarged. No infiltrates or effusions. Scarring again noted along theanterior chest on lateral view and by the left hilum on the PA view. Thereis been interval cervical fusion. No compression deformity seen. IMPRESSION: Enlarging hiatal hernia. Probable lingular scarring. No acuteinfiltrates. us Chasidy Soto MD IMG XR CHEST Final Result * US Abdomen Complete (08/12/2021 8:11 AM EDT) Anatomical Region Laterality Modality Abdomen Ultrasound 08/12/2021 8:21 AM EDT Impressions 08/12/2021 8:23 AM EDT *Limited due to body habitus.* 1.Hepatic steatosis. 2.Cholecystectomy. Narrative 08/12/2021 8:23 AM EDT COMPARISON: None. ABDOMEN ULTRASOUND FINDINGS: *Limited due to body habitus.* Liver: Diffusely echogenic. Incidental 1 cm left hepatic lobe simple cyst. Gallbladder: Cholecystectomy. Common bile duct: 8 mm. Pancreas: Limited. Imaged pancreas is normal. Pancreatic tail is obscured by bowel gas. Kidneys: Normal. Spleen: Normal. Proximal abdominal aorta/IVC/Main Portal Vein: Unremarkable. Procedure Note Sergio Butler MD - 08/12/2021 COMPARISON: None. ABDOMEN ULTRASOUND FINDINGS: *Limited due to body habitus.* Liver: Diffusely echogenic. Incidental 1 cm left hepatic lobe simplecyst. Gallbladder: Cholecystectomy. Common bile duct: 8 mm. Pancreas: Limited. Imaged pancreas is normal. Pancreatic tail isobscured by bowel gas. Kidneys: Normal. Spleen: Normal. Proximal abdominal aorta/IVC/Main Portal Vein: Unremarkable. IMPRESSION: *Limited due to body habitus.* 1.Hepatic steatosis. 2.Cholecystectomy. us Chasidy Soto MD IMG US ABDOMEN Final Result documented in this encounter Visit Diagnoses Diagnosis Generalized hyperhidrosis- Primary Generalized hyperhidrosis Generalized hyperhidrosis documented in this encounter Care Teams Control Valve Mechanic Relationship Specialty Start Date End Date Chasidy Soto MD [address] [place] [address] [email or web address] PCP - General Internal Medicine 05/23/18 07/26/23 Nadira Diaz CNP [address] [place] [address], [address] [place] [address] [email or web address] PCP - General Adult Health 07/27/23 Reggie Mondragon MD [address] [place] [phone] [email or web address] Endocrinology 08/04/22 Nir Jade PA [address] [place] [address] [place] [address] [email or web address] Surgery 08/04/22 Chasidy Soto MD [address] [place] [address] [email or web address] Insurance Assigned Provider 01/16/23 07/17/23 Reid Norris MD [address] [place] [address], [address] [place] [address] [email or web address] Family Medicine 07/27/23 Marija Taylor OD [address] [place] [address] Optometry 07/27/23 02/06/24 Devaughn Canseco MD [address] [place] [address], [facility] [place] [address] General Surgery 07/27/23 02/06/24 Barry Murry OD 250 [place] [address] [email or web address] 02/07/24 Tommy aMr APRN 31 [facility] 203 [place] [address] 02/07/24 David Davis MD 22 [facility] 102 [place] [address] Obstetrics and Gynecology 02/07/24 documented as of this encounter Additional Source Comments The information contained in this document represents components of the legal health record. It is not the complete legal health record.[facility]
--- OUTSIDE RECORDS SUMMARY | 2025-09-03 15:57 | XMS_ITS | Encounter Summary ---
Author Organization [facility] Address [address] [place] [address] Phone Care Team Providers Care Human Resources Services Specialist Name Role Phone Chasidy Soto MD Primary Care Provider Reggie Mondragon MD Unavailable [phone] Nir Jade Unavailable [phone] Chasidy Soto MD Unavailable [phone] Nadira Diaz CNP Primary Care Provider [phone] Reid Norris MD Unavailable Marija Taylor OD Unavailable Devaughn Canseco MD Unavailable Barry Murry OD Unavailable Tommy Mar APRN Unavailable David Davis MD Unavailable Encounter Details Date Type Department Care Team (Late st Contact Info) Description 07/23/2020 Procedure Pass [address] [address] Social History Tobacco Use Types Packs/Day Years [...] Description 09/10/2025 8:30 AM EST Office Visit [address] [address] Nadira iDaz CNP [address] [place] [address], [address] [place] [address] documented as of this encounter Visit Diagnoses Not on filedocumented in this encounter Care Teams Human Resources Services Specialist Relationship Specialty Start Date End Date Chasidy Soto MD [address] [place] [address] PCP - General Internal Medicine 05/23/18 07/26/23 Nadira Diaz CNP [address] [place] [address], [address] [place] [address] PCP - General Adult Health 07/27/23 Reggie Mondragon MD [address] [place] [phone] [email or web address] Endocrinology 08/04/22 Nir Jade PA [address] [place] [address] [place] [address] [email or web address] Surgery 08/04/22 Chasidy Soto MD [address] [place] [address] Insurance Assigned Provider 01/16/23 07/17/23 Reid Norris MD [address] [place] [address] [address] [place] [address] Family Medicine 07/27/23 Millie Taylorelicia FRANCISCO [address] [place] [address] Optometry 07/27/23 02/06/24 Devaughn Canseco MD [address] [place] [address], [place] [address] General Surgery 07/27/23 02/06/24 Barry Murry OD [address] [place] [address] [email or web address] 02/07/24 Tommy Mar, DEBI [address] [place] [address] [address] [place] [address] 02/07/24 David Davis MD [address] [place] [address], [address] [place] [address] Obstetrics and Gynecology 02/07/24 documented as of this encounter Additional Source Comments The information contained in this document represents components of the legal health record. It is not the complete legal health record.[facility]
--- OUTSIDE RECORDS SUMMARY | 2025-09-03 15:57 | XMS_ITS | Encounter Summary ---
Author Organization [facility] Address [address] [place] [address] Phone Care Team Providers Care First Calender Worker Name Role Phone Chasidy Soto MD Primary Care Provider [phone] Reggie Mondragon MD Unavailable [phone] Nir Jade Unavailable [phone] Chasidy Soto MD Unavailable [phone] Nadira Diaz CNP Primary Care Provider [phone] Reid Norris MD Unavailable Marija Taylor OD Unavailable Devaughn Canseco MD Unavailable [phone] Barry Murry OD Unavailable Tommy Mar APRN Unavailable David Davis MD Unavailable [phone] Encounter Details Date Type Department Care Team (Latest Contact Info) Description 11/29/2020 Transcribe Orders Virtual Department 30 [place] [address] Jean Marie Luther MD [address] [place] [id number] [email or web address] Pre-operative laboratory examination (Primary Dx) Social History [...] Description 09/10/2025 8:30 AM EST Office Visit [address] [place] [address] Nadira Diaz CNP 22 [facility], [address] [place] [address] [email or web address] documented as of this encounter Results * COVID-19 PCR Order (12/02/2020 7:46 AM EST) COVID-19 Comment [id number] [facility] COVID Testing Status Sent to [facility] 12/02/2020 7:46 AM EST 12/02/2020 5:01 PM EST Jean Marie Luther MD BODY FLUIDS AND STOOLS ORDERAB LES Final Result [facility] 30 [place] [address] documented in this encounter Visit Diagnoses Diagnosis Pre-operative laboratory examination- Primary Pre-procedural laboratory examination documented in this encounter Care Teams First Calender Worker Relationship Specialty Start Date End Date Chasidy Soto MD [address] [place] [address] 1 [place] [address] [email or web address] PCP - General Internal Medicine 05/23/18 07/26/23 Nadira Diaz CNP 22 [facility], [address] [place] [address] PCP - General Adult Health 07/27/23 Reggie Mondragon MD [address] [place] [phone] [email or web address] Endocrinology 08/04/22 Nir Jade PA [address] [place] [address] [place] [address] [email or web address] Surgery 08/04/22 Chasidy Soto MD 25 [place] [address] Insurance Assigned Provider 01/16/23 07/17/23 Reid Norris MD 22 [facility], [address] [place] [address] [email or web address] Family Medicine 07/27/23 Marija Taylor OD [address] [place] [address] Optometry 07/27/23 02/06/24 Devaughn Canseco MD [address] [place] [address], [place] [address] General Surgery 07/27/23 02/06/24 Barry Murry OD 250 [place] [address] Optometry 02/07/24 Tommy Mar APRN 31 [facility] [address] [place] [address] 02/07/24 David Davis MD [address] [place] [address], [place] [address] [email or web address] Obstetrics and Gynecology 02/07/24 documented as of this encounter Additional Source Comments The information contained in this document represents components of the legal health record. It is not the complete legal health record.[facility]
--- OUTSIDE RECORDS SUMMARY | 2025-09-03 15:57 | XMS_ITS | Encounter Summary ---
Author Organization [facility] Address [address] [place] [address] Phone Care Team Providers Care Glue Wheel Operator Name Role Phone Chasidy Soto MD Primary Care Provider [phone] Reggie Mondragon MD Unavailable Nir Jade Unavailable Chasidy Soto MD Unavailable Nadira Diaz CNP Primary Care Provider [phone] Reid Norris MD Unavailable Marija Taylor OD Unavailable Devaughn Canseco MD Unavailable [phone] Barry Murry OD Unavailable Tommy Mar APRN Unavailable [phone] David Davis MD Unavailable [phone] Encounter Details Date Type Department Care Team (Late st Contact Info) Description 01/14/2021 Ancillary Orders [facility], X-Ray - [address] [place] [address] Chasidy Soto MD [address] [place] [address] [email or web address] Pleurodynia Social History Tobacco Use Types Packs/Day Years [...] AM EST Office Visit [facility] Medicine [address] [place] [address] Nadira Diaz CNP [address] [place] [address], [address] [place] [address] [email or web address] Scheduled Orders Name Type Priority Associated Diagnoses Orde r Schedule XR Ribs (Bilateral) Imaging Routine Pleurodynia 1 Occurrences starting 01/14/2021 until 04/16/2021 documented as of this encounter Visit Diagnoses Diagnosis Pleurodynia Painful respiration documented in this encounter Care Teams Glue Wheel Operator Relationship Specialty Start Date End Date Chasidy Soto MD [address] [place] [address] [email or web address] PCP - General Internal Medicine 05/23/18 07/26/23 Nadira Diaz CNP [address] [place] [address], [address] [place] [address] PCP - General Adult Health 07/27/23 Reggie Mondragon MD [address] [place] [phone] [email or web address] Endocrinology 08/04/22 Nir Jade PA [address] [place] [address] [place] [address] [email or web address] Surgery 08/04/22 Chasidy Soto MD 25 [place] [address] Insurance Assigned Provider 01/16/23 07/17/23 Reid Norris MD [address] [place] [address], [address] [place] [address] Family Medicine 07/27/23 Marija Taylor OD [address] [place] [address] Optometry 07/27/23 02/06/24 Devaughn Canseco MD [address] [place] [address], [place] [address] General Surgery 07/27/23 02/06/24 Barry Murry OD [address] [place] [address] [email or web address] Optometry 02/07/24 Tommy Mar APRN [address] [place] [address] [address] [place] [address] 02/07/24 David Davis MD [address] [place] [address], [address] [place] [address] Obstetrics and Gynecology 02/07/24 documented as of this encounter Additional Source Comments The information contained in this document represents components of the legal health record. It is not the complete legal health record.[facility]
--- OUTSIDE RECORDS SUMMARY | 2025-09-03 15:57 | XMS_ITS | Encounter Summary ---
Author Organization [facility] Address [address] [place] [address] Phone Care Team Providers Care Cardiovascular Radiologic Technologist Name Role Phone Reggie Mondragon MD Unavailable Nir Jade Unavailable [phone] Nadira Diaz CNP Primary Care Provider [phone] Reid Norris MD Unavailable [phone] Barry Murry OD Unavailable Tommy Mar APRN Unavailable [phone] David Davis MD Unavailable [phone] Encounter Details Date Type Department Care Team (Late st Contact Info) Description 10/24/2024 Procedure Pass [facility] [place], [address] [id number] Social History Tobacco Use Types Packs/Day Years [...] work, study, or receive health care? No 02/03/2024 Education Answer Date Recorded Are you interested in help w ith more adult education (for example, completing high school, GED, job training, learning the Bahamian language, technical skills, or developing parenting skills)? I choose not to answer 01/20/2023 Food Answer Date Recorded Within the past 6 months we worried whether our food would run out before we got money to buy more. Never True 02/03/2024 Within the past 6 months the food we bought just didn't last and we didn't have enough money to get more. Never True Residential Stability Answer Date Recor ded What is your housing situation today? I have palak sing 02/03/2024 How many times have you move d in the past 12 months? Zero (I did not move) 02/03/2024 Paying for Meds Answer Date Recorded Do you have trouble paying for medicines? No 02/03/2024 Paying Utility Bills Answer Date Record ed Do you have trouble paying your heating or elect ricity bill? No 02/03/2024 Transportation Answer Date Recorded Has the lack of transportati on kept you from medical appointments or from getting medications? No 02/03/2024 Unemployment Answer Date Recorded Are you currently unemployed or working on a part-time or temporary basis, and looking for work? I choose not to answer 01/20/2023 Digital Access Answer Date Recorded No 02/03/2024 Yes 02/03/2024 Do you have reliable internet access at home? Ye s 02/03/2024 Do you have a device (e.g., phone, tablet, computer) with a working camera? Yes 02/03/2024 SNAP & WIC Answer Date Recorded Do you receive benefits from SNAP (the Supplemental Nutrition Assistance Program) or the Food Stamp Program? Yes 02/03/2024 SNAP is a free program, interested in learning m ore? Not on file 02/03/2024 Can we help you enroll in SNAP? Not on file 02/03/2024 Benefits received from WIC? Not on file 01/07 WIC is a free program, interested in learning mo re? Not on file 02/03/2024 Can we help you enroll in WIC? Not on file 0 02/03/2024 Intimate Partner Violence Answer Date R ecorded [...] Description 09/10/2025 8:30 AM EST Office Visit [address] [address] Nadira Diaz CNP [address] [place] [address], [address] [place] [address] [email or web address] documented as of this encounter Visit Diagnoses Not on filedocumented in this encounter Additional Health Concerns Assessment Noted Time PHQ-9 Depression Total Score: 4 10/10/20 24 6:50 AM EST PHQ-2 Depression Total Score: 2 02/07/20 25 7:26 AM EDT documented as of this encounter Care Teams Cardiovascular Radiologic Technologist Relationship Specialty Start Date End Date Nadira Diaz CNP [address] [place] [address], [address] [place] [address] [email or web address] PCP - General Adult Health 07/27/23 Reggie Mondragon MD [address] [place] [phone] [email or web address] Endocrinology 08/04/22 Nir Jade PA [address] [place] [address] [place] [address] [email or web address] 08/04/22 Reid Norris MD 22 [facility], [address] [place] [address] Family Medicine 07/27/23 Barry Murry OD 250 [place] [address] [email or web address] 02/07/24 Tommy Mar APRN 31 [facility] [address] [place] [address] 02/07/24 David Davis MD [address] [place] [address], [address] [place] [address] [email or web address] Obstetrics and Gynecology 02/07/24 documented as of this encounter Additional Source Comments The information contained in this document represents components of the legal health record. It is not the complete legal health record.[facility]
--- NOTE | 2025-09-03 16:01 | PHA.MEDREC ---
Addendum entered by Chapo Chamberlain PharmD 09/03/25 16:05: reviewed Original Note: Pharmacy Consult ? Medication Reconciliation Pharmacy has completed the medication reconciliation. patient was able to name all of her medications. patient confirmed Zepbound 10 mg every , last dose 08/30/25, Fluoxetine 20 mg every other day (on even day of the month) alternating with Fluoxetine 40 mg every other day ( on odd days of the month). Patient had all her morning medications today.
[2025-09-03] MEDS: 0.9 % Sodium Chloride Flush 3 ML SYRINGE IVFLUSH (16:05)
--- NOTE | 2025-09-03 16:23 | PM.IMHP ---
History of Present Illness Date of Service: 09/03/25 Chief Complaint: Left-sided weakness 65 years old woman who came to hospital with a new onset of dizziness. She said that she did not have any such dizziness before. She woke up last night and everything was spinning. She felt unsteady. She went to bed and when she woke up again same thing was happening. In emergency room she was noted to have mild left-sided weakness. Initial head CT and CTA did not reveal any acute or a lesion that could be intervene. There was no associated visual symptom or ear symptom. She has chronic left ear ringing that was still there. She fell somewhat nauseous. She denied taking any new medicine or chemical. CTA of head and CTA of head and neck did not reveal any significant lesions. We will be admitted to complete workup Review of Systems Review of Systems: Denies chest pain Denies shortness of breath Denies nausea vomiting diarrhea Denies fever chills PMFSH Medical History (Updated 09/03/25 @ 16:26 by Bryan Gonzalez DO) Hyperlipidemia Social History Smoked in Last 30 Days: No Use of substances other than those prescribed or required for medical reasons: No Advance Directives: No Advance Directives Information Provided: Yes Do you have a plan to hurt others: No Plan Meds Allergies Allergy/AdvReac Type Severity Reaction Status Date / Time azithromycin (Azithromycin) Allergy Mild RASH Verified 09/03/25 12:10 Active Medications: Current Medications Acetaminophen (Acetaminophen 325 Mg Tablet) 650 mg PO Q6H PRN PRN Reason: Pain, Mild 1-3,fever,headache Atorvastatin Calcium (Atorvastatin Calcium 40 Mg Tablet) 40 mg PO DAILY [facility] Calcium Carbonate (Calcium Carbonate 750 Mg Tab.Chew) 750 mg PO Q4H PRN PRN Reason: Heartburn Enoxaparin Sodium (Enoxaparin Sodium 40 Mg/0.4 Ml Syringe) 40 mg SUBCUT Q24H [facility] Last Admin: 09/03/25 15:50 Dose: 40 mg Magnesium Hydroxide (Milk Of Magnesia 30 Ml Oral.Susp) 30 ml PO DAILY PRN PRN Reason: Constipation Melatonin (Melatonin 3 Mg Tablet) 6 mg PO BEDTIME PRN PRN Reason: Insomnia Ondansetron HCl (Ondansetron Hcl 4 Mg/2 Ml Vial) 4 mg IVPUSH Q8H PRN PRN Reason: Nausea and Vomiting Sodium Chloride (0.9 % Sodium Chloride Flush 3 Ml Syringe) 3 ml IVFLUSH QSHIFT [facility] Last Admin: 09/03/25 16:05 Dose: 3 ml Home Medications ?Medication ?Instructions ?Recorded ?Confirmed ?Last Taken ?Type ascorbic acid (vitamin C) 500 mg 500 mg PO DAILY 09/03/25 09/03/25 09/03/25 History tablet (Vitamin C) ferrous sulfate 325 mg (65 mg 325 mg PO DAILY 09/03/25 09/03/25 09/03/25 History iron) tablet,delayed release fluoxetine 20 mg capsule 20 mg PO Q48H 09/03/25 09/03/25 09/02/25 History fluoxetine 20 mg capsule 40 mg PO Q48H 09/03/25 09/03/25 09/03/25 History magnesium 250 mg tablet 250 mg PO DAILY 09/03/25 09/03/25 09/03/25 History montelukast 10 mg tablet 10 mg PO DAILY 09/03/25 09/03/25 09/03/25 History pantoprazole 40 mg tablet,delayed 40 mg PO BEDTIME Acid Reflux 09/03/25 09/03/25 09/02/25 History release pravastatin 40 mg tablet 40 mg PO DAILY 09/03/25 09/03/25 09/03/25 History quetiapine 50 mg tablet 50 mg PO BEDTIME 09/03/25 09/03/25 09/02/25 History tirzepatide (weight loss) 10 10 mg subcut TH 09/03/25 09/03/25 08/30/25 History mg/0.5 mL subcutaneous pen injector (Zepbound) tolterodine 4 mg capsule,extended 4 mg PO DAILY 09/03/25 09/03/25 09/03/25 History release 24 hr vitamin B complex 1 tab PO DAILY 09/03/25 09/03/25 09/03/25 History Physical Exam Vital Signs and Narrative: Vital Signs: Last Vital Signs Temp 97.1 F 09/03/25 12:09 Pulse 63 09/03/25 14:00 Resp 16 09/03/25 14:00 BP 125/72 09/03/25 14:00 Pulse Ox 96 09/03/25 14:00 O2 Del Method Room Air 09/03/25 14:00 BMI result Body Mass Index 30.5 Const: Other: Awake alert no acute distress Resp: Other: Clear to auscultation bilaterally no rales rhonchi or wheezes Cardio: Other: No S4; positive S1-S2; no S3 murmurs rubs or gallops GI: Other: Soft nontender nondistended normoactive bowel sounds Extrem: Other: No edema bilaterally Results Labs 09/03/25 13:16 09/03/25 13:16 Labs: Laboratory Results - last 24 hr 09/03/25 09/03/25 09/03/25 13:10 13:14 13:16 MCV 89.1 MCH 28.7 MCHC 32.2 RDW 14.0 Plt Count 271 MPV 8.9 L Immature Gran % (Auto) 0.4 Neut % (Auto) 75.2 H Lymph % (Auto) 14.0 L [place] % (Auto) 7.6 Eos % (Auto) 2.3 Baso % (Auto) 0.5 Lymph # (Auto) 1.1 L [place] # (Auto) 0.6 Eos # (Auto) 0.2 Baso # (Auto) 0.0 Abs Immat Gran (auto) 0.03 Absolute Neuts (auto) 6.1 Absolute Nucleated RBC 0.000 Nucleated RBC % (auto) 0.0 PT 11.5 Whole Blood PT 11.6 INR 1.0 Whole Blood INR 1.0 Anion Gap 10 L Estim Creat Clear Calc 86.4 Estimated GFR > 60 POC Glucose 96 Random Glucose 92 Estimat Average Glucose 111 Hemoglobin A1c % 5.5 Calcium 9.3 Magnesium 2.2 Total Bilirubin 0.3 Direct Bilirubin 0.1 AST 21 ALT 14 Alkaline Phosphatase 62 Troponin I High Sens < 2.7 Total Protein 6.9 Albumin 4.4 Triglycerides 171 H Cholesterol 188 LDL Cholesterol, Calc 92 HDL Cholesterol 62 Imaging Radiologist's Impressions: Impressions Head/Neck CTA 09/03/25 12:42 IMPRESSION: No acute intracranial hemorrhage or acute brain abnormality by CT. EXAMINATION: CTA NECK WITH CONTRAST (STROKE) CTA BRAIN WITH CONTRAST (STROKE) CLINICAL INFORMATION: Left-sided weakness. Concerning for stroke. COMPARISON: None available. TECHNIQUE: CTA of the head and neck was performed in the axial plane from the mediastinum to the skull vertex using 70 mL Omnipaque 350 intravenous contrast. Additional reformatted multiplanar images including maximum intensity projection MIP images are generated on the CT workstation. This CT examination was performed using dose optimization techniques as appropriate, variously including the following: *Automated exposure control *Adjustment of mA and/or kV according to patient size (this includes techniques or standardized protocols for targeted exams where dose is matched to indication/reason for exam; i.e. extremities or head) *Use of iterative reconstruction technique. DLP: 674 mGy-cm FINDINGS: The degree of stenosis determined by criteria similar to NASCET. Chest CTA: No aneurysm or dissection, thoracic aorta. No focal stenosis. Neck CTA: Right CCA: Normal patency. No focal stenosis. No intimal flap. Right ICA: Normal patency. No focal stenosis. No intimal flap. Left CCA: Normal patency. No focal stenosis. No intimal flap. Left ICA: Normal patency. No focal stenosis. No intimal flap. Tortuosity. V1/V2 segments: Normal patency. No focal stenosis. No intimal flap. Right vertebral artery slightly dominant. Both arteries origin is directly from the subclavian artery. Brain CTA: Anterior cerebral circulation: ICAs: Normal patency. No focal stenosis. No abrupt cut off. No gross vascular irregularity. MCA's: Normal patency. No focal stenosis. No abrupt cut off. Bifurcation/trifurcation demonstrated no vascular abnormality. ACAs: Normal patency. No focal stenosis. No abrupt cut off. Ophthalmic arteries are patent without vascular abnormality. Posterior communicating arteries are patent without gross vascular abnormality. Anterior communicating artery is patent without gross vascular abnormality. Posterior cerebral circulation: V3/V4 segments: Normal patency. No focal stenosis. No intimal flap. Posterior inferior cerebellar arteries are patent on the left has a common trunk with the left anterior inferior cerebral artery. Basilar artery is patent without focal stenosis or intimal flap. Superior cerebellar arteries are patent without gross abnormality. 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 No focal stenosis. No abrupt cut off. Ancillary findings: No main cerebral venous sinus thrombosis. Absent left thyroid lobe suggesting left hemithyroidectomy. No dominant nodules in the right thyroid lobe. Pulmonary mosaic pattern. Status post ACDF C5-6. IMPRESSION: No main cerebral artery occlusion or embolus or gross aneurysm. No high degree stenosis or dissection extracranial arteries. This critical test result is communicated to: Emergency physician Dr. Sandi Sandoval at 1:11 PM hours on September 03, 2025.. It was ascertained that the content and urgency of the report was understood at the time of direct communication. Electronically signed by: Stevenson Ojeda MD 09/03/2025 01:22 PM EDT RP Head CT 09/03/25 13:00 IMPRESSION: No acute intracranial hemorrhage or acute brain abnormality by CT. EXAMINATION: CTA NECK WITH CONTRAST (STROKE) CTA BRAIN WITH CONTRAST (STROKE) CLINICAL INFORMATION: Left-sided weakness. Concerning for stroke. COMPARISON: None available. TECHNIQUE: CTA of the head and neck was performed in the axial plane from the mediastinum to the skull vertex using 70 mL Omnipaque 350 intravenous contrast. Additional reformatted multiplanar images including maximum intensity projection MIP images are generated on the CT workstation. This CT examination was performed using dose optimization techniques as appropriate, variously including the following: *Automated exposure control *Adjustment of mA and/or kV according to patient size (this includes techniques or standardized protocols for targeted exams where dose is matched to indication/reason for exam; i.e. extremities or head) *Use of iterative reconstruction technique. DLP: 674 mGy-cm FINDINGS: The degree of stenosis determined by criteria similar to NASCET. Chest CTA: No aneurysm or dissection, thoracic aorta. No focal stenosis. Neck CTA: Right CCA: Normal patency. No focal stenosis. No intimal flap. Right ICA: Normal patency. No focal stenosis. No intimal flap. Left CCA: Normal patency. No focal stenosis. No intimal flap. Left ICA: Normal patency. No focal stenosis. No intimal flap. Tortuosity. V1/V2 segments: Normal patency. No focal stenosis. No intimal flap. Right vertebral artery slightly dominant. Both arteries origin is directly from the subclavian artery. Brain CTA: Anterior cerebral circulation: ICAs: Normal patency. No focal stenosis. No abrupt cut off. No gross vascular irregularity. MCA's: Normal patency. No focal stenosis. No abrupt cut off. Bifurcation/trifurcation demonstrated no vascular abnormality. ACAs: Normal patency. No focal stenosis. No abrupt cut off. Ophthalmic arteries are patent without vascular abnormality. Posterior communicating arteries are patent without gross vascular abnormality. Anterior communicating artery is patent without gross vascular abnormality. Posterior cerebral circulation: V3/V4 segments: Normal patency. No focal stenosis. No intimal flap. Posterior inferior cerebellar arteries are patent on the left has a common trunk with the left anterior inferior cerebral artery. Basilar artery is patent without focal stenosis or intimal flap. Superior cerebellar arteries are patent without gross abnormality. 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 No focal stenosis. No abrupt cut off. Ancillary findings: No main cerebral venous sinus thrombosis. Absent left thyroid lobe suggesting left hemithyroidectomy. No dominant nodules in the right thyroid lobe. Pulmonary mosaic pattern. Status post ACDF C5-6. IMPRESSION: No main cerebral artery occlusion or embolus or gross aneurysm. No high degree stenosis or dissection extracranial arteries. This critical test result is communicated to: Emergency physician Dr. Sandi Sandoval at 1:11 PM hours on September 03, 2025.. It was ascertained that the content and urgency of the report was understood at the time of direct communication. Electronically signed by: Stevenson Ojeda MD 09/03/2025 01:22 PM EDT RP Assessment and Plan (1) Left-sided weakness: Status: Acute (2) Dizziness: Status: Acute Plan 65-year-old female with new onset of vertigo type dizziness and mild left-sided weakness as above. Initial workup in ER including CTA of head and CTA head and neck unremarkable. Admit to complete workup and specialty consultation 1. Left-sided weakness -appreciate neuro consult -MRI pending -aspirin/statin/ -PT/OT consult -further plans based on forthcoming data 2. Hyperlipidemia -statin as above 3. GERD -continue PPI 4. Depression/anxiety -stable and well compensated Full code Lovenox Patient will require 1 midnight of hospitalization to complete workup for left-sided weakness along with specialty consultation Quality Stroke Does the patient have a stroke diagnosis?: No VTE Prior VTE?: No VTE Risk Level:: Medical - moderate - high VTE Device Contraindication: Treatment Not Indicated VTE Drug Contraindication: N/A - Med Ordered
[2025-09-03 16:57] VITALS: BP 124/76; PULSE 63; RESP 16; TEMP 36; O2SAT 99
[2025-09-03 16:58] VITALS: BMI 32.5
[2025-09-03 19:17] VITALS: BP 122/68; PULSE 64; RESP 16; TEMP 36.2; O2SAT 93
[2025-09-03 23:43] VITALS: BP 95/51; PULSE 62; RESP 16; TEMP 36.8; O2SAT 95
[2025-09-04 03:07] VITALS: BP 109/58; PULSE 60; RESP 16; TEMP 36.3; O2SAT 93
[2025-09-04 07:21] VITALS: BP 115/57; PULSE 65; RESP 18; TEMP 36.8; O2SAT 93
[2025-09-04 07:42] LABS: MANUAL DIFF FLAG NO
[2025-09-04 07:46] LABS: Hematocrit 39.5 % (37.0-47.0); Hemoglobin 12.9 g/dl (12.0-16.0); Imm Gran Abs Auto 0.04 X10*3/uL (0.00-0.03); Imm Gran Pct Auto 0.6 % (0.0-0.4); Lymphocytes Absolute Auto 1.3 X10*3/uL (1.2-4.9); Mean Corpuscular HGB Conc 32.7 g/dl (31.0-35.0); Mean Corpuscular Hemoglobin 29.0 pg (27.0-33.0); Mean Corpuscular Volume 88.8 fL (80.0-98.0); NRBC Abs Auto 0.000 X10*3/uL (0.0-0.012); NRBC Pct Auto 0.0 /100WBC (0.0-0.2); Platelet Count 247 X10*3/uL (160-400); Red Blood Count 4.45 X10*6/uL (4.20-5.50); White Blood Count 6.5 X10*3/uL (4.8-10.8)
[2025-09-04] MEDS: 0.9 % Sodium Chloride Flush 3 ML SYRINGE IVFLUSH (07:55)
[2025-09-04 07:59] LABS: Alanine Aminotransferase 10 U/L (0-31); Albumin Level 4.0 g/dL (3.5-5.0); Alkaline Phosphatase 58 U/L (39-117); Anion Gap 11 (12-20); Aspartate Amino Transferase 17 U/L (5-31); Blood Urea Nitrogen 15 mg/dL (9-16); Calcium 8.9 mg/dL (8.4-10.2); Carbon Dioxide 27 mmol/L (22-29); Chloride 110 mmol/L (96-108); Creatinine Clr Calc Pharmacy 72.8; Estimated Glomerular Filt Rate > 60; Potassium 4.6 mmol/L (3.3-5.1); Sodium 143 mmol/L (135-145); Total Protein 6.4 g/dL (6.5-8.0)
[2025-09-04] MEDS: Ferrous Sulfate 324 MG TABLET.DR PO (08:00)
[2025-09-04 12:00] VITALS: BP 108/68; PULSE 64; RESP 18; TEMP 36.7; O2SAT 95
--- NOTE | 2025-09-04 13:12 | MHC.CM.PN ---
Мария 09/04/25, Pt. is independent, she does not use home health services or DME. PCP is confirmed: Nadira Diaz, HCP is spouse: Darien [place]. Pt. can arrange a ride home at [place], DCP: home or Acute rehab. CM to follow for DC needs.
--- NOTE | 2025-09-04 14:16 | P.DS_ITS ---
DS: Providers Provider Date of Service: 09/04/25 Date of admission: 09/03/25 14:55 Date of discharge: 09/04/25 Primary care physician: Nadira Diaz NP DS: Diagnosis Discharge Diagnosis (1) Left-sided weakness: Status: Acute (2) Dizziness: Status: Acute DS: Summary Hospital Course Hospital Course: 65 years old woman who came to hospital with a new onset of dizziness. She said that she did not have any such dizziness before. She woke up last night and everything was spinning. She felt unsteady. She went to bed and when she woke up again same thing was happening. In emergency room she was noted to have mild left-sided weakness. Initial head CT and CTA did not reveal any acute or a lesion that could be intervene. There was no associated visual symptom or ear symptom. She has chronic left ear ringing that was still there. She fell somewhat nauseous. She denied taking any new medicine or chemical. CTA of head and CTA of head and neck did not reveal any significant lesions. Hospital Course Patient admitted to telemetry where monitor failed to demonstrate any acute pathology. MRI of head without contrast failed to demonstrate any acute lesions. When further queried, patient states she did not have weakness but rather a numbness and tingling which she has had previously which she attributes to a pinched nerve. She was seen by Physical therapy who did vestibular therapy with complete resolution of her symptoms. They did recommend short-term rehab but patient is adamant about returning home. At this point in time she is medically acceptable for same. She has physical therapies number and if symptoms returned she will be seen as an outpatient Time Attestation Discharge Coordination Time (in mins): 35 Quality: Safe Use of Opioids Does Pt have an Active Cancer Diagnosis on the Problem List?: No Quality: Stroke Does the patient have a stroke diagnosis?: No Physical Exam Vital Signs: Vital Signs: Last Vital Signs Temp 98.1 F 09/04/25 12:00 Pulse 64 09/04/25 12:00 Resp 18 09/04/25 12:00 BP 108/68 09/04/25 12:00 Pulse Ox 95 09/04/25 12:00 O2 Del Method Room Air 09/04/25 12:00 BMI result Body Mass Index 32.5 Const: Other: Awake alert no acute distress Resp: Other: Clear to auscultation bilaterally no rales rhonchi or wheezes Cardio: Other: No S4; positive S1-S2; no S3 murmurs rubs or gallops GI: Other: Soft nontender nondistended normoactive bowel sounds Extrem: Other: No edema bilaterally DS: Data Data Completed and Pending Labs on day of discharge: Laboratory Results - last 24 hr 09/04/25 07:20 WBC 6.5 RBC 4.45 Hgb 12.9 Hct 39.5 MCV 88.8 MCH 29.0 MCHC 32.7 RDW 14.1 Plt Count 247 MPV 9.1 L Immature Gran % (Auto) 0.6 H Neut % (Auto) 66.3 Lymph % (Auto) 20.1 [place] % (Auto) 9.0 Eos % (Auto) 3.7 Baso % (Auto) 0.3 Lymph # (Auto) 1.3 [place] # (Auto) 0.6 Eos # (Auto) 0.2 Baso # (Auto) 0.0 Abs Immat Gran (auto) 0.04 H Absolute Neuts (auto) 4.3 Absolute Nucleated RBC 0.000 Nucleated RBC % (auto) 0.0 Sodium 143 Potassium 4.6 Chloride 110 H Carbon Dioxide 27 Anion Gap 11 L BUN 15 Creatinine 0.93 Estim Creat Clear Calc 72.8 Estimated GFR > 60 Random Glucose 89 Calcium 8.9 Total Bilirubin 0.3 AST 17 ALT 10 Alkaline Phosphatase 58 Total Protein 6.4 L Albumin 4.0 Discharge Plan Discharge Anticipated Discharge Date/Time: 09/04/25 14:05 Patient Disposition: Home, Self-Care Discharge Diagnosis: BPV Referrals: Nadira Diaz NP [Primary Care Provider, Internal Medicine] - 1 Week Discharge Medications: New atorvastatin 40 mg Tablet 40 mg PO DAILY Qty: 30 0RF aspirin 81 mg tablet 81 mg PO DAILY Qty: 30 0RF Continued tolterodine 4 mg capsule,extended release 24hr 4 mg PO DAILY pantoprazole 40 mg tablet,delayed release (DR/EC) 40 mg PO BEDTIME montelukast 10 mg tablet 10 mg PO DAILY fluoxetine 20 mg capsule 20 mg PO Q48H Rx Instructions: TAKE 1 CAPSULE DAILY ON EVEN DAYS OF MONTH AND 2 CAPSULES DAILY ON ODD DAYS OF THE MONTH fluoxetine 20 mg capsule 40 mg PO Q48H Rx Instructions: TAKE 1 CAPSULE DAILY ON EVEN DAYS OF MONTH AND 2 CAPSULES DAILY ON ODD DAYS OF THE MONTH quetiapine 50 mg tablet 50 mg PO BEDTIME Zepbound 10 mg/0.5 mL pen injector 10 mg subcut TH ascorbic acid (vitamin C) [Vitamin C] 500 mg Tablet 500 mg PO DAILY vitamin B complex Tablet 1 tab PO DAILY magnesium 250 mg Tablet 250 mg PO DAILY ferrous sulfate 325 mg (65 mg iron) Tablet,Delayed Release (Dr/Ec) 325 mg PO DAILY Discontinued pravastatin 40 mg tablet 40 mg PO DAILY Discharge Orders: Discharge Order (Routine); Ordered 09/04/25 Ordered By: Bryan Gonzalez Diet: Advance to usual diet Activity on Discharge: As tolerated Stand Alone Forms: Patient Portal Discharge page Print Language: Kiswahili Care Plan Goals: Resume all your meds as taken prior to the hospital Health Concerns: Your cholesterol medicine has been changed to Lipitor 40 mg daily. Aspirin 81 mg daily has been added to your regimen Plan of Treatment: Follow up with the PCP as scheduled Assessment: See discharge summary
--- NOTE | 2025-09-04 14:23 | MHC.CM.PN ---
Pt. has been medically cleared to [place], she will go home via family transport, plan is self care.
== END 2025-09-04 14:59 | disposition home or self-care (01) ==
LOC: HO.ED 14:04 → HO.EDOVER 15:00 → HO.IMC 15:31
PROVIDERS: Admitting Provider Hospitalist; Emergency Provider Emergency Medicine; PCP Nurse Practitioner Adult Health; Visit Provider Hospitalist
DX: H81.10 Benign paroxysmal vertigo, unspecified ear (principal); R53.1 Weakness; R11.0 Nausea; E78.5 Hyperlipidemia, unspecified; K21.9 Gastro-esophageal reflux disease without esophagitis; Z79.899 Other long term (current) drug therapy; Z79.01 Long term (current) use of anticoagulants
CPT/HCPCS: 36415; 70450; 70496; 70498; 70551; 80048; 80053; 80061; 80076; 82947; 83036; 83735; 84484; 85025; 85610; 93005; 95992; 96372; 96374; 97162; 97530; 99222; 99285; J1650; J2405; Q9967

== ENCOUNTER → 2025-09-03 12:33 | Outpatient (BNV) | payer OTHER, SELFPAY | PROVIDERS: Emergency Provider Emergency Medicine; PCP Nurse Practitioner Adult Health; Visit Provider Psychiatry & Neurology Neurology | DX: R53.1 Weakness (principal) | CPT/HCPCS: 99222 ==

== ENCOUNTER → 2025-09-03 12:50 | Outpatient (BNV) | payer OTHER, SELFPAY | PROVIDERS: Emergency Provider Emergency Medicine; PCP Nurse Practitioner Adult Health; Visit Provider Radiology Diagnostic Radiology | DX: R53.1 Weakness (principal); R42 Dizziness and giddiness | CPT/HCPCS: 70450; 70496; 70498; 70551 ==

== ENCOUNTER → 2025-09-03 12:51 | Outpatient (BNV) | payer OTHER, SELFPAY | PROVIDERS: Admitting Provider Hospitalist; Emergency Provider Emergency Medicine; PCP Nurse Practitioner Adult Health; Visit Provider Internal Medicine | DX: R94.31 Abnormal electrocardiogram [ECG] [EKG] (principal); R53.1 Weakness; R42 Dizziness and giddiness | CPT/HCPCS: 93010 ==

== ENCOUNTER → 2025-09-03 14:55 | Outpatient (BNV) | payer OTHER, SELFPAY | PROVIDERS: Admitting Provider Hospitalist; Emergency Provider Emergency Medicine; PCP Nurse Practitioner Adult Health; Visit Provider Hospitalist | DX: R53.1 Weakness (principal); R42 Dizziness and giddiness | CPT/HCPCS: 99222 ==